=== PATIENT | female | born 1965 | race Two or more races ===

== ENCOUNTER 2020-09-06 13:01 | Outpatient (REF) | payer MEDICAID, SELFPAY ==
--- NOTE | ~2020-09-06 | CT_ITS ---
EXAMINATION: CT ABDOMEN AND PELVIS WITHOUT CONTRAST CLINICAL INFORMATION: Ulcer colitis. Diarrhea. Question mass or abscess. History of gastric bypass. COMPARISON: Previous upper GI september 2016, pelvic ultrasound and abdominal ultrasound May 2016 TECHNIQUE: Multidetector volumetric imaging was performed from the superior aspect of the liver through the pubic symphysis following oral contrast only. IV contrast was not administered due to patient's history of severe anaphylactic reaction to shellfish.. Sagittal and coronal reformatted images were obtained on the technologist's workstation. This CT examination was performed using dose optimization techniques as appropriate, variously including the following: *Automated exposure control *Adjustment of mA and/or kV according to patient size (this includes techniques or standardized protocols for targeted exams where dose is matched to indication/reason for exam; i.e. extremities or head) *Use of iterative reconstruction technique DLP: 634 mGy-cm FINDINGS: LUNG BASES: The visualized lung bases are unremarkable. LIVER, GALLBLADDER, AND BILIARY TREE: The liver is normal in size, shape, and attenuation. No focal hepatic lesion or biliary ductal dilatation is present. The gallbladder is unremarkable with no evidence of radiopaque gallstones, gallbladder wall thickening, or obvious pericholecystic inflammatory changes. PANCREAS: Unremarkable. SPLEEN: Unremarkable. ADRENAL GLANDS: Unremarkable. KIDNEYS AND URETERS: The kidneys are normal in size, shape, and attenuation. No hydronephrosis, hydroureter, or calculi seen. No perinephric stranding. BLADDER: Not optimally distended GASTROINTESTINAL TRACT: There is wall thickening of the cecum and right colon. This likely represents known ulcerative colitis. There is stool in the distal colon. There are postsurgical changes to the stomach following gastric bypass. There may be a small esophageal hernia. The small and large bowel is otherwise unremarkable. There is no evidence of obstruction, mass or abscess. The appendix is is not identified. There are small mesenteric lymph nodes in the right lower quadrant. No enlarged lymph nodes are seen. ABDOMINAL WALL: Small umbilical hernia containing fat. LYMPH NODES: Normal. VASCULAR: There are small mesenteric lymph nodes in the right lower quadrant. No enlarged lymph nodes are seen. PELVIC VISCERA: Unremarkable. OSSEOUS STRUCTURES: There are mild degenerative changes of the spine. CT/CT abdomen pelvis wo con IMPRESSION: Wall thickening of the cecum and right colon suggestive of mild colitis. No evidence of obstruction mass or abscess. Postoperative changes following gastric bypass. Probable small esophageal hernia. Small right lower quadrant mesentery lymph nodes. No enlarged lymph nodes seen. Stool in the distal colon questionable for constipation..
[2020-09-06] MEDS: Barium Sulfate Oral (Vanilla) 450 ML ORAL.SUSP 900 ML PO (16:12)
== END 2020-09-06 13:02 | disposition home or self-care (01) ==
LOC: HO.CT 13:01
PROVIDERS: PCP Internal Medicine; Visit Provider Emergency Medicine
DX: K52.9 Noninfective gastroenteritis and colitis, unspecified (principal); Z98.84 Bariatric surgery status
CPT/HCPCS: 74176

== ENCOUNTER 2020-11-15 08:13 | Outpatient (REF) | payer MEDICAID, SELFPAY ==
--- NOTE | ~2020-11-15 | MM_ITS ---
EXAMINATION: MM SCREENING DIGITAL BREAST TOMOSYNTHESIS, BILATERAL CLINICAL INFORMATION: Screening. Asymptomatic. The lifetime risk of breast cancer based on the Tyrer-Cuzick Model is 13%. COMPARISON: Mammography: 11/03/2019, 05/15/2018, 03/18/2017 TECHNIQUE: Digital breast tomosynthesis is performed in both the craniocaudal and mediolateral oblique views along with computer-aided detection (CAD). Synthesized 2D images are generated from the tomosynthesis. FINDINGS: There are scattered areas of fibroglandular density (ACR BI-RADS breast composition Category b). Breast tissue composition borders on predominantly fatty. Background stromal densities are stable. There is no developing density or architectural abnormality or interval mass. No abnormal calcifications. The axilla are unremarkable. No significant changes from prior studies. MM/MM tomosynthesis screening BI IMPRESSION: No mammographic evidence of malignancy. ASSESSMENT: BI-RADS 1: Negative RECOMMENDATION: Routine annual mammography screening. This patient's information was entered into a reminder system with a target due date for their next mammogram.
== END 2020-11-15 08:14 | disposition home or self-care (01) ==
LOC: HO.MAMMO 08:13
PROVIDERS: Visit Provider Internal Medicine
DX: Z12.31 Encounter for screening mammogram for malignant neoplasm of breast (principal)
CPT/HCPCS: 77063; 77067

== ENCOUNTER 2021-01-18 08:58 | Outpatient (REF) | payer MEDICAID, SELFPAY ==
--- NOTE | ~2021-01-18 | XR_ITS ---
EXAMINATION: XR CERVICAL SPINE CLINICAL INFORMATION: Cervicalgia COMPARISON: Radiographs of cervical spine from 09/15/2017 TECHNIQUE: 5 views of the cervical spine were obtained. FINDINGS: The craniocervical junction is normal. The dens and atlantodental articulation are intact. The cervical vertebra have normal height. No fracture or prevertebral soft tissue swelling. Facet arthropathy of the cervical spine is predominantly noted on the left at C2-C3 and C5-C6. There is chronic lack of lordotic curvature of the degenerated spine. At C4-C5, there is chronic moderate degenerative loss of disc space, vertebral osteophyte formation and minimal anterolisthesis of C4 on C5. At C5-C6, there is chronic, mild anterior disc space narrowing and facet arthropathy with chronic, 0.2 cm anterolisthesis of C5 on C6. No osseous stenosis of the neural foramina. The visualized lung apices are normal. XR/XR cervical spine 4V IMPRESSION: * No new findings in the degenerated cervical spine compared to 09/15/2017. * Disc degenerative change in the cervical spine is worst at C4-C5. * Chronic, minimal anterolisthesis at C4-C5 and 0.2 cm of anterolisthesis at C5-C6.
--- NOTE | ~2021-01-18 | XR_ITS ---
EXAMINATION: XR KNEE, RIGHT CLINICAL INFORMATION: Right knee pain COMPARISON: None TECHNIQUE: Four views of the right knee. FINDINGS: No acute findings. No fracture or subluxation. No knee joint effusion. The medial and lateral tibiofemoral joint spaces are maintained. On the sunrise view, there appears to be narrowing of the medial patellofemoral joint space. It is difficult to determine whether this represents true joint space narrowing or is secondary to slight hyperflexion of the knee on this particular radiographic projection. Very small osteophytes are noted at the patellofemoral compartment. No intra-articular osteochondral body. XR/XR knee RT 4V IMPRESSION: * No fracture or malalignment at the right knee. * Mild patellofemoral osteoarthrosis and probable narrowing of medial patellofemoral joint space.
== END 2021-01-18 08:59 | disposition home or self-care (01) ==
LOC: HO.XRAY 08:58
PROVIDERS: Absent Provider Internal Medicine; PCP Internal Medicine; Visit Provider Family Medicine
DX: M54.2 Cervicalgia (principal); M25.561 Pain in right knee
CPT/HCPCS: 72050; 73564

== ENCOUNTER 2021-03-14 07:16 | Emergency (ER) | payer MEDICAID, SELFPAY ==
--- NOTE | ~2021-03-14 | CT_ITS ---
EXAMINATION: CT ABDOMEN AND PELVIS WITH CONTRAST CLINICAL INFORMATION: Epigastric pain and diarrhea. History of ulcerative colitis and gastric bypass surgery. COMPARISON: 09/06/2020 TECHNIQUE: Multidetector volumetric images were obtained from the superior aspect of the liver through the pubic symphysis following administration 85 mL of Omnipaque 350 intravenous contrast. Sagittal and coronal reformatted images were obtained on the technologist's workstation. Oral contrast: No This CT examination was performed using dose optimization techniques as appropriate, variously including the following: *Automated exposure control *Adjustment of mA and/or kV according to patient size (this includes techniques or standardized protocols for targeted exams where dose is matched to indication/reason for exam; i.e. extremities or head) *Use of iterative reconstruction technique DLP: 773 mGy-cm FINDINGS: LUNG BASES: No pulmonary consolidation or pleural effusion at either lung base. LIVER: The liver has normal size, shape, and attenuation. No evidence of liver mass. GALLBLADDER AND BILIARY TREE: Gallbladder is without radiopaque stones, wall thickening or pericholecystic fluid. No dilated bile ducts. PANCREAS: Normal. No edema, pancreatic ductal dilatation or mass. SPLEEN: Normal. ADRENAL GLANDS: Normal. KIDNEYS AND URETERS: The kidneys have normal size and cortical thickness. No perinephric fluid collection. No urolithiasis or hydroureteronephrosis. BLADDER: Normal. No calculi or wall thickening. BOWEL AND PERITONEUM: No acute findings along the gastrointestinal tract. Small hiatal hernia. The configuration of the stomach is suggestive of remote gastric sleeve. No dilated bowel loops. The appendix is normal. No acute bowel wall thickening/edema, mesenteric fat stranding or free fluid. ABDOMINAL WALL: No acute abnormality. VASCULATURE: Atherosclerotic calcification of the abdominal aorta without aneurysm. Inferior vena cava is unremarkable. LYMPH NODES: No retroperitoneal lymphadenopathy. No pathologic sized iliac or inguinal lymph nodes. There are several lymph nodes in the right mesentery that are chronically, mildly enlarged (largest 0.8 cm short axis dimension). PELVIC VISCERA: The uterus and adnexa are unremarkable. No pelvic free fluid. SKELETAL: Mild spondylosis of the thoracolumbar spine. No suspicious bone lesions. CT/CT abdomen pelvis w con IMPRESSION: No acute imaging findings in the abdomen or pelvis compared to 09/06/2020. No evidence of inflammatory change or obstruction along the gastrointestinal tract. Hiatal hernia is noted. Chronic, mild lymphadenopathy of the mesentery is observed in this patient with history of ulcerative colitis. However, no imaging evidence of active inflammation of bowel.
[2021-03-14 07:23] VITALS: BP 163/55; PULSE 61; RESP 16; TEMP 36.6; O2SAT 98; BMI 34.9
[2021-03-14] MEDS: 0.9 % Sodium Chloride 1,000 ML 999 ML IV (07:53)
[2021-03-14 07:57] LABS: MANUAL DIFF FLAG NO
[2021-03-14 07:59] LABS: Appearance Urine CLEAR; Basophils Percent Auto 0.4 % (0-2); Color Urine YELLOW; Eosinophils Percent Auto 0.9 % (0-4); Glucose Urine UA NEG (NEG); Hematocrit 38.7 % (37.0-47.0); Hemoglobin 12.7 g/dl (12.0-16.0); Imm Gran Abs Auto 0.02 X10*3/uL (0.00-0.03); Imm Gran Pct Auto 0.4 % (0.0-0.4); Leukocyte Esterase Urine NEG (NEG); Lymphocytes Absolute Auto 1.2 X10*3/uL (1.2-4.9); Lymphocytes Percent Auto 25.5 % (20-40); Mean Corpuscular HGB Conc 32.8 g/dl (31.0-35.0); Mean Corpuscular Volume 88.4 fL (80.0-98.0); Mean Platelet Volume 8.9 fL (9.4-12.3); Monocytes Absolute Auto 0.8 X10*3/uL (0.1-1.2); Monocytes Percent Auto 16.2 % (2-11); Neutrophils Absolute Auto 2.6 x10*3/uL (2.0-8.3); Neutrophils Percent Auto 56.6 % (45-73); Nitrite Urine NEG (NEG); Platelet Count 227 X10*3/uL (160-400); Red Blood Count 4.38 X10*6/uL (4.20-5.50); Red Cell Distribution Width 13.4 % (11.0-16.0); Specific Gravity - Urine 1.025 (1.005-1.025); Urine Blood NEG (NEG); Urine Ketones NEG (NEG); Urine Protein NEG (NEG-TRACE); White Blood Count 4.6 X10*3/uL (4.8-10.8)
[2021-03-14 08:18] LABS: Alanine Aminotransferase 24 U/L (0-31); Alkaline Phosphatase 88 U/L (39-117); Anion Gap 10 (12-20); Aspartate Amino Transferase 20 U/L (5-31); Bilirubin Direct < 0.2 mg/dL (0.0-0.5); Bilirubin Total 0.4 mg/dL (0.0-1.0); Blood Urea Nitrogen 16 mg/dL (9-16); COVID-19 Test Negative (Negative); Calcium 9.3 mg/dL (8.4-10.2); Carbon Dioxide 27 mmol/L (22-29); Chloride 108 mmol/L (96-108); Creatinine Clr Calc Pharmacy 81.3; Estimated Glomerular Filt Rate > 60; Glucose Random 100 mg/dL (60-115); Lipase 23 U/L (8-78); Potassium 3.9 mmol/L (3.3-5.1); Sodium 141 mmol/L (135-145); Total Protein 7.2 g/dL (6.5-8.0)
[2021-03-14] MEDS: ondansetron HCL 4 MG/2 ML VIAL IVPUSH (08:34)
[2021-03-14] MEDS: Ketorolac Tromethamine 15 MG/ML VIAL 30 MG IVPUSH (08:34)
[2021-03-14] MEDS: iohexoL 350 MG/ML 100 ML INFUS..BTL IV (09:13)
--- NOTE | 2021-03-14 10:54 | ED_ITS ---
HPI - Abdominal Pain General Chief Complaint: Abdominal Pain Stated Complaint: abd pain, diarrhea Time Seen by Provider: 03/14/21 08:16 Source: patient Mode of arrival: ambulatory Limitations: no limitations History of Present Illness HPI narrative: 55-year-old female who presents emergency department for evaluation of nausea, vomiting, diarrhea headache and abdominal pain. The patient states she has a history of ulcerative colitis but is not had treatment in over 5 years. She complains of diarrhea x2 weeks. She states that she has 4 loose watery stools per day. She also complains of epigastric pain. She states she has an intermittent, sharp pain and she points to her epigastric area. This pain is made worse with food. She states the pain waxes and wanes in intensity is 8/10 at its worse and is 5/10 at the time of presentation. She has had nausea with occasional vomiting. She complains of feeling lightheaded, dizzy and weak. She denied fever or chills. She denied chest pain, cough for shortn ess of breath. The patient has not been on antibiotics recently and she has not had any recent travel. Related Data Previous Rx's Medication Instructions Recorded ondansetron 4 mg disintegrating 4 mg PO Q6-8H PRN #14 tab 03/14/21 tablet Allergies Allergy/AdvReac Type Severity Reaction Status Date / Time shellfish derived Allergy Unknown RASH, Unverified 01/20/20 19:09 [SHELLFISH DERIVED] THROAT ITCHINESS pt states no medication Allergy Unknown Uncoded 02/22/19 00:00 allerg Seafood Allergy Unknown Uncoded 02/22/19 00:00 Review of Systems Review of Systems Yes all other systems are reviewed and are negative Physical Exam Vital Signs: Vital Signs: Last Vital Signs Temp 97.8 F 03/14/21 07:23 Pulse 61 03/14/21 07:23 Resp 16 03/14/21 07:23 BP 163/55 H 03/14/21 07:23 Pulse Ox 98 03/14/21 07:23 Body Mass Index 34.9 Const: General: cooperative and no acute distress Orientation/consciousness: oriented to person and oriented to place Limitations: no limitations HENMT: Head: Yes normal to inspection, Yes normocephalic and Yes atraumatic Ears: external ears normal General nose exam: Normal external nose present Face and sinus: Yes normal facial exam Mouth: Normal oral and palatal mucosa present Throat: Yes posterior oropharynx normal Eyes: General: appearance normal, both eyes and all related structures Pupils: Equal, round and reactive pupils present Neck: Neck: Yes normal visual inspection, Yes no lymphadenopathy, Yes trachea midline and Yes supple Chest: Chest palpation & inspection: normal inspection of the chest and normal palpation of entire chest wall Resp: Effort & Inspection: normal respiratory effort and able to speak in complete sentences Auscultation: clear to auscultation bilaterally Cardio: Rate: regular rate Rhythm: regular rhythm Heart sounds: S1 normal heart sound present, S2 normal heart sound present and no murmurs GI: Inspection: Yes normal to inspection Palpation (GI): Soft to palpation, Tenderness to palpation present (GI) in the epigastrum (Moderate) and no guardin g Auscultation: normal bowel sounds : General: Yes no CVA tenderness Back/Spine/Pelvis: Back: no CVA tenderness Skin: General skin exam: no rashes or lesions noted Neuro: General: oriented to person and oriented to place Cranial nerves: Yes CN's II-XII intact bilaterally and Yes Equal, round and reactive pupils present Cognition (Neuro): normal cognition Motor exam (neuro): 5/5 motor strength present throughout Extrem: General: Yes normal to inspection Psych: Appearance: grossly normal Speech and movement: Normal speech and movement present Affect: normal affect Attitude: cooperative Thought process: Normal thought process present Thought content: Normal thought content present Course Course Course Narrative: 55-year-old female with history of also colitis, not on any medications for 5 years, gastric bypass surgery 2 years prior presents emergency department for evaluation of diarrhea 4 episodes per day x2 weeks and epigastric pain. Patient also had nausea and occasional vomiting. Vital signs revealed an elevated blood pressure of 163/55 otherwise were unremarkable. Physical examination revealed midepigastric tenderness. I ordered a CBC, CMP, lipase, urinalysis, C diff, stool culture and a CT scan of the abdomen pelvis with IV contrast. Patient's pain was treated with Toradol 30 mg IV and Zofran 4 mg IV. I also ordered normal saline x1 L. 1059: The patient is pain-free and feels significantly better after the above treatment. Her laboratory evaluation revealed a a WBC count of [address] scan of the abdomen pelvis revealed no acute findings to explain the patient's pain. There was no evidence of inflammatory changes or obstruction along the GI tract. She did have chronic mild lymphadenopathy of the mesentery but there was no evidence for active inflammatory bowel disease. The patient was not able to produce a stool here in the emergency department. The patient was advised to take Tylenol and ibuprofen for pain. She is also advised to take Imodium for her diarrhea. She was given verbal and printed instructions and discharged home. MDM - Abdominal Pain Lab Data Result diagrams: 03/14/21 07:52 03/14/21 07:52 Labs: Lab Results 03/14/21 03/14/21 03/14/21 Range/Units 07:52 07:52 07:52 WBC 4.6 L (4.8-10.8) X10*3/uL RBC 4.38 (4.20-5.50) X10*6/uL Hgb 12.7 (12.0-16.0) g/dl Hct 38.7 (37.0-47.0) % MCV 88.4 (80.0-98.0) fL MCH 29.0 (27.0-33.0) pg MCHC 32.8 (31.0-35.0) g/dl RDW 13.4 (11.0-16.0) % Plt Count 227 (160-400) X10*3/uL MPV 8.9 L (9.4-12.3) fL Immature Gran % (Auto) 0.4 (0.0-0.4) % Neut % (Auto) 56.6 (45-73) % Lymph % (Auto) 25.5 (20-40) % [place] % (Auto) 16.2 H (2-11) % Eos % (Auto) 0.9 (0-4) % Baso % (Auto) 0.4 (0-2) % Lymph # (Auto) 1.2 (1.2-4.9) X10*3/uL [place] # (Auto) 0.8 (0.1-1.2) X10*3/uL Eos # (Auto) 0.0 (0.0-0.4) X10*3/uL Baso # (Auto) 0.0 (0.0-0.2) X10*3/uL Abs Immat Gran (auto) 0.02 (0.00-0.03) X10*3/uL Absolute Neuts (auto) 2.6 (2.0-8.3) x10*3/uL Absolute Nucleated RBC 0.000 (0.0-0.012) X10*3/uL Nucleated RBC % (auto) 0.0 (0.0-0.2) /100WBC Sodium 141 (135-145) mmol/L Potassium 3.9 (3.3-5.1) mmol/L Chloride 108 (96-108) mmol/L Carbon Dioxide 27 (22-29) mmol/L Anion Gap 10 L (12-20) BUN 16 (9-16) mg/dL Creatinine 0.78 (0.5-1.4) mg/dL Estim Creat Clear Calc 81.3 Estimated GFR > 60 Random Glucose 100 (60-115) mg/dL Calcium 9.3 (8.4-10.2) mg/dL Total Bilirubin 0.4 (0.0-1.0) mg/dL Direct Bilirubin < 0.2 (0.0-0.5) mg/dL AST 20 (5-31) U/L ALT 24 (0-31) U/L Alkaline Phosphatase 88 (39-117) U/L Total Protein 7.2 (6.5-8.0) g/dL Albumin 4.0 (3.5-5.0) g/dL Lipase 23 (8-78) U/L Urine Color Urine Appearance Urine pH (5.0-8.0) Ur Specific [place] (1.005-1.025) Urine Protein (NEG-TRACE) MG/DL Urine Glucose (UA) (NEG) MG/DL Urine Ketones (NEG) MG/DL Urine Blood (NEG) Urine Nitrite (NEG) Ur Leukocyte Esterase (NEG) COVID-19 (PATRICE) Negative (Negative) COVID-19 Clin Com See Note 03/14/21 Range/Units 07:52 WBC (4.8-10.8) X10*3/uL RBC (4.20-5.50) X10*6/uL Hgb (12.0-16.0) g/dl Hct (37.0-47.0) % MCV (80.0-98.0) fL MCH (27.0-33.0) pg MCHC (31.0-35.0) g/dl RDW (11.0-16.0) % Plt Count (160-400) X10*3/uL MPV (9.4-12.3) fL Immature Gran % (Auto) (0.0-0.4) % Neut % (Auto) (45-73) % Lymph % (Auto) (20-40) % [place] % (Auto) (2-11) % Eos % (Auto) (0-4) % Baso % (Auto) (0-2) % Lymph # (Auto) (1.2-4.9) X10*3/uL [place] # (Auto) (0.1-1.2) X10*3/uL Eos # (Auto) (0.0-0.4) X10*3/uL Baso # (Auto) (0.0-0.2) X10*3/uL Abs Immat Gran (auto) (0.00-0.03) X10*3/uL Absolute Neuts (auto) (2.0-8.3) x10*3/uL Absolute Nucleated RBC (0.0-0.012) X10*3/uL Nucleated RBC % (auto) (0.0-0.2) /100WBC Sodium (135-145) mmol/L Potassium (3.3-5.1) mmol/L Chloride (96-108) mmol/L Carbon Dioxide (22-29) mmol/L Anion Gap (12-20) BUN (9-16) mg/dL Creatinine (0.5-1.4) mg/dL Estim Creat Clear Calc Estimated GFR Random Glucose (60-115) mg/dL Calcium (8.4-10.2) mg/dL Total Bilirubin (0.0-1.0) mg/dL Direct Bilirubin (0.0-0.5) mg/dL AST (5-31) U/L ALT (0-31) U/L Alkaline Phosphatase (39-117) U/L Total Protein (6.5-8.0) g/dL Albumin (3.5-5.0) g/dL Lipase (8-78) U/L Urine Color YELLOW Urine Appearance CLEAR Urine pH 6.0 (5.0-8.0) Ur Specific [place] 1.025 (1.005-1.025) Urine Protein NEG (NEG-TRACE) MG/DL Urine Glucose (UA) NEG (NEG) MG/DL Urine Ketones NEG (NEG) MG/DL Urine Blood NEG (NEG) Urine Nitrite NEG (NEG) Ur Leukocyte Esterase NEG (NEG) COVID-19 (PATRICE) (Negative) COVID-19 Clin Com Discharge Plan Discharge Clinical Impression: Nausea Abdominal pain Qualifiers: Abdominal location: epigastric Qualified Code(s): R10.13 - Epigastric pain Diarrhea Qualifiers: Diarrhea type: unspecified type Qualified Code(s): R19.7 - Diarrhea, unspecified Patient Disposition: Home, Self-Care Instructions: Acute Diarrhea (ED), Abdominal Pain (ED) Additional Instructions: Your blood work was unremarkable. Your COVID-[address] test was negative[address] The CT scan of your abdomen pelvis with IV contrast did not reveal a clear cause for your pain and diarrhea. There is no inflammation in your colon which is reassuring suggesting that your symptoms are not caused by a recurrence of her ulcerative colitis. Take ibuprofen 200 mg pills, 3 pills every 6 hours as needed for pain. Take Tylenol (acetaminophen) 500 mg pills, 2 pills every 4 to 6 hours as needed for pain. Take Zofran ODT 4 mg pills, 1 pill dissolved in your mouth every 8 hours as needed for nausea and vomiting. Follow-up with your doctor in 2 days. Please return to the emergency department if your symptoms get worse or if you develop any symptoms that are concerning to you. Please see work note Prescriptions: New ondansetron 4 mg tablet,disintegrating 4 mg PO Q6-8H PRN (Reason: nausea and vomiting) Qty: 14 RF: 0 Stand Alone Forms: Work/School Release [facility] Past Medical History [facility] Narrative: Past medical history: Ulcerative colitis, depression. Past surgical history: Patient had a gastric bypass surgery 3 years prior. She denies tobacco, alcohol and drug use. Social History Social History Advance Directives: No Patient : No
== END 2021-03-14 11:30 | disposition home or self-care (01) ==
PROVIDERS: Emergency Provider Emergency Medicine Emergency Medical Services; PCP Internal Medicine
DX: R10.13 Epigastric pain (principal); R19.7 Diarrhea, unspecified; R11.0 Nausea; Z98.84 Bariatric surgery status; Z20.822 Contact with and (suspected) exposure to COVID-19
CPT/HCPCS: 36415; 74177; 80048; 80076; 81003; 83690; 85025; 87635; 96361; 96374; 96375; 99283; 99284; J1885; J2405; Q9967

== ENCOUNTER 2021-04-03 14:03 | Emergency (ER) | payer MEDICAID, SELFPAY ==
[2021-04-03 15:03] VITALS: BP 132/70; PULSE 63; RESP 18; TEMP 36.5; O2SAT 98; BMI 32.5
[2021-04-03 15:48] LABS: OBS Int Ctl Valid YES; OBS1 POSITIVE (NEGATIVE)
[2021-04-03 16:43] LABS: MANUAL DIFF FLAG NO
[2021-04-03 16:44] LABS: Leukocytes Stool Qualitative NEGATIVE (NEGATIVE)
[2021-04-03 16:46] LABS: Basophils Percent Auto 0.4 % (0-2); Eosinophils Absolute Auto 0.1 X10*3/uL (0.0-0.4); Eosinophils Percent Auto 2.7 % (0-4); Hematocrit 38.7 % (37.0-47.0); Hemoglobin 12.8 g/dl (12.0-16.0); Imm Gran Abs Auto 0.04 X10*3/uL (0.00-0.03); Imm Gran Pct Auto 0.8 % (0.0-0.4); Lymphocytes Absolute Auto 1.2 X10*3/uL (1.2-4.9); Lymphocytes Percent Auto 23.6 % (20-40); Mean Corpuscular HGB Conc 33.1 g/dl (31.0-35.0); Mean Corpuscular Hemoglobin 29.8 pg (27.0-33.0); Mean Corpuscular Volume 90.2 fL (80.0-98.0); Mean Platelet Volume 8.8 fL (9.4-12.3); Monocytes Absolute Auto 0.8 X10*3/uL (0.1-1.2); Monocytes Percent Auto 14.9 % (2-11); Neutrophils Percent Auto 57.6 % (45-73); Platelet Count 255 X10*3/uL (160-400); Red Blood Count 4.29 X10*6/uL (4.20-5.50); Red Cell Distribution Width 13.3 % (11.0-16.0); White Blood Count 5.2 X10*3/uL (4.8-10.8)
[2021-04-03 17:05] LABS: Alanine Aminotransferase 21 U/L (0-31); Alkaline Phosphatase 95 U/L (39-117); Anion Gap 11 (12-20); Aspartate Amino Transferase 23 U/L (5-31); Bilirubin Direct < 0.2 mg/dL (0.0-0.5); Bilirubin Total 0.3 mg/dL (0.0-1.0); Blood Urea Nitrogen 22 mg/dL (9-16); Calcium 9.5 mg/dL (8.4-10.2); Carbon Dioxide 27 mmol/L (22-29); Chloride 107 mmol/L (96-108); Creatinine Clr Calc Pharmacy 80.4; Estimated Glomerular Filt Rate > 60; Glucose Random 85 mg/dL (60-115); Lipase 38 U/L (8-78); Potassium 3.5 mmol/L (3.3-5.1); Sodium 141 mmol/L (135-145); Total Protein 7.3 g/dL (6.5-8.0)
--- NOTE | 2021-04-03 17:55 | ED.NAVMDI ---
HPI - Nausea/Vomiting/Diarrhea General Chief complaint: Nausea/Vomiting/Diarrhea Stated complaint: diarrhea Time Seen by Provider: 04/03/21 17:29 Source: patient Mode of arrival: ambulatory Limitations: no limitations History of Present Illness HPI Narrative: Patient comes to emergency room complaining of chronic diarrhea for a month. Patient states that she has history of ulcerative colitis, last time that she had a colonoscopy was over 5 years ago. Patient states that she was seen here on March 14 for the same reason. Patient accepts that she did not citrus picker the medication for diarrhea. Denies abdominal pain, no rectal bleeding, no nausea or vomiting. No fever. 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 interventionist Related Data Previous Rx's Medication Instructions Recorded ondansetron 4 mg disintegrating 4 mg PO Q6-8H PRN #14 tab 03/14/21 tablet diphenoxylate-atropine 2.5 1 tab PO DAILY PRN #10 tab 04/03/21 mg-0.025 mg tablet (Lomotil) Allergies Allergy/AdvReac Type Severity Reaction Status Date / Time shellfish derived Allergy Unknown RASH, Verified 04/03/21 15:02 [SHELLFISH DERIVED] THROAT ITCHINESS Seafood Allergy Unknown Unknown Uncoded 04/03/21 15:02 Review of Systems Review of Systems: Constitutional : No Weight loss, No Fever, No Chills, No Night Sweats, No Fatigue, No Malaise ENT/Mouth : No Hearing loss, No Ear Pain, No Nasal Congestion, No Sinus Pain, No Hoarseness, No sore throat, No Rhinorrhea, No Swallowing Difficulty Eyes: No Eye Pain, No Swelling, No Redness, No Foreign Body, No Discharge, No Vision Changes Cardiovascular : No Chest Pain, No SOB, No Dyspnea on Exertion, No Orthopnea, No Edema, No Palpitations Respiratory : No Cough, No Sputum, No Wheezing, No Smoke Exposure, No Dyspnea Gastrointestinal : No Nausea, No Vomiting, chronic daily Diarrhea for over a month, No Constipation, No abdominal Pain, No Hematochezia, No Melena Genitourinary : no irregular bleeding, No Dysuria, No Urinary Frequency, No Hematuria, No Urinary Incontinence, No Urgency, No Flank Pain, No Urinary Flow Changes, No Hesitancy Musculoskeletal : No joint pain, No Myalgias, No Joint Swelling Skin : No Skin Lesions, No rash Neuro : No Weakness, No Numbness, No Paresthesias, No Loss of Consciousness, No Dizziness, No Headache Psych : No Anxiety/Panic, No Depression, No SI/HI/AH/VH, No Social Issues, Heme/Lymph: No Bruising, No Bleeding,No Lymphadenopathy Endocrine : No Polyuria, No Polydipsia, No Temperature Intolerance [facility] Social History Social History Alcohol intake: unknown Patient Tobacco Use Status: Never used Tobacco Use of substances other than those prescribed or required for medical reasons: No Advance Directives: No Advance Directives Information Provided: No Patient : No Physical Exam Vital Signs: Vital Signs: Last Vital Signs Temp 97.7 F 04/03/21 15:03 Pulse 63 04/03/21 15:03 Resp 18 04/03/21 15:03 BP 132/70 04/03/21 15:03 Pulse Ox 98 04/03/21 15:03 Body Mass Index 32.5 Const: Other: Appearance: Alert. Oriented X3. No acute distress. Eyes: Pupils equal, round and reactive to light. ENT: Pharynx normal. Neck: Normal inspection. Neck supple. No lymph nodes noted. No crepitus CVS: Normal heart rate and rhythm. Pulses normal. Normal S1 and S2 Respiratory: No respiratory distress. Breath sounds normal. No Wheezing. No rales Abdomen: Soft and nontender. No rigidity. No distention. good BS x4 Skin: Skin warm and dry. Normal skin color. Normal skin turgor. Extremities: No lower extremity edema. No Lacerations. No Rash Neuro: Oriented X 3. No motor deficit. No sensory deficit. Moving all extermities. No slurred speech. Course Course Course Narrative: Patient's white blood cell count is normal, also no significant electrolyte abnormalities, LFTs within normal limits. Patient did have occult blood in the stool. H&H is normal. Patient is concerned that she has diarrhea and she is about to travel to [place]. Patient states that she did not citrus picker her previous medication. Patient will citrus picker her medications tomorrow. Patient's pharmacy is closed now, declined having me sent her prescriptions to a 24 hour pharmacy MDM - Nausea/Vomiting/Diarrhea Lab Data Result diagrams: 04/03/21 16:38 04/03/21 16:38 Labs: Lab Results 04/03/21 04/03/21 04/03/21 Range/Units 15:34 15:34 16:38 WBC 5.2 (4.8-10.8) X10*3/uL RBC 4.29 (4.20-5.50) X10*6/uL Hgb 12.8 (12.0-16.0) g/dl Hct 38.7 (37.0-47.0) % MCV 90.2 (80.0-98.0) fL MCH 29.8 (27.0-33.0) pg MCHC 33.1 (31.0-35.0) g/dl RDW 13.3 (11.0-16.0) % Plt Count 255 (160-400) X10*3/uL MPV 8.8 L (9.4-12.3) fL Immature Gran % (Auto) 0.8 H (0.0-0.4) % Neut % (Auto) 57.6 (45-73) % Lymph % (Auto) 23.6 (20-40) % [place] % (Auto) 14.9 H (2-11) % Eos % (Auto) 2.7 (0-4) % Baso % (Auto) 0.4 (0-2) % Lymph # (Auto) 1.2 (1.2-4.9) X10*3/uL [place] # (Auto) 0.8 (0.1-1.2) X10*3/uL Eos # (Auto) 0.1 (0.0-0.4) X10*3/uL Baso # (Auto) 0.0 (0.0-0.2) X10*3/uL Abs Immat Gran (auto) 0.04 H (0.00-0.03) X10*3/uL Absolute Neuts (auto) 3.0 (2.0-8.3) x10*3/uL Absolute Nucleated RBC 0.000 (0.0-0.012) X10*3/uL Nucleated RBC % (auto) 0.0 (0.0-0.2) /100WBC Sodium (135-145) mmol/L Potassium (3.3-5.1) mmol/L Chloride (96-108) mmol/L Carbon Dioxide (22-29) mmol/L Anion Gap (12-20) BUN (9-16) mg/dL Creatinine (0.5-1.4) mg/dL Estim Creat Clear Calc Estimated GFR Random Glucose (60-115) mg/dL Calcium (8.4-10.2) mg/dL Total Bilirubin (0.0-1.0) mg/dL Direct Bilirubin (0.0-0.5) mg/dL AST (5-31) U/L ALT (0-31) U/L Alkaline Phosphatase (39-117) U/L Total Protein (6.5-8.0) g/dL Albumin (3.5-5.0) g/dL Lipase (8-78) U/L Stool Occult Blood POSITIVE (NEGATIVE) Stool Leukocytes, Qual NEGATIVE (NEGATIVE) 04/03/21 Range/Units 16:38 WBC (4.8-10.8) X10*3/uL RBC (4.20-5.50) X10*6/uL Hgb (12.0-16.0) g/dl Hct (37.0-47.0) % MCV (80.0-98.0) fL MCH (27.0-33.0) pg MCHC (31.0-35.0) g/dl RDW (11.0-16.0) % Plt Count (160-400) X10*3/uL MPV (9.4-12.3) fL Immature Gran % (Auto) (0.0-0.4) % Neut % (Auto) (45-73) % Lymph % (Auto) (20-40) % [place] % (Auto) (2-11) % Eos % (Auto) (0-4) % Baso % (Auto) (0-2) % Lymph # (Auto) (1.2-4.9) X10*3/uL [place] # (Auto) (0.1-1.2) X10*3/uL Eos # (Auto) (0.0-0.4) X10*3/uL Baso # (Auto) (0.0-0.2) X10*3/uL Abs Immat Gran (auto) (0.00-0.03) X10*3/uL Absolute Neuts (auto) (2.0-8.3) x10*3/uL Absolute Nucleated RBC (0.0-0.012) X10*3/uL Nucleated RBC % (auto) (0.0-0.2) /100WBC Sodium 141 (135-145) mmol/L Potassium 3.5 (3.3-5.1) mmol/L Chloride 107 (96-108) mmol/L Carbon Dioxide 27 (22-29) mmol/L Anion Gap 11 L (12-20) BUN 22 H (9-16) mg/dL Creatinine 0.82 (0.5-1.4) mg/dL Estim Creat Clear Calc 80.4 Estimated GFR > 60 Random Glucose 85 (60-115) mg/dL Calcium 9.5 (8.4-10.2) mg/dL Total Bilirubin 0.3 (0.0-1.0) mg/dL Direct Bilirubin < 0.2 (0.0-0.5) mg/dL AST 23 (5-31) U/L ALT 21 (0-31) U/L Alkaline Phosphatase 95 (39-117) U/L Total Protein 7.3 (6.5-8.0) g/dL Albumin 4.0 (3.5-5.0) g/dL Lipase 38 (8-78) U/L Stool Occult Blood (NEGATIVE) Stool Leukocytes, Qual (NEGATIVE) Discharge Plan Discharge Clinical Impression: Chronic diarrhea Patient Disposition: Home, Self-Care Instructions: Chronic Diarrhea (ED) Additional Instructions: Please follow-up with your primary care physician tomorrow. If you have any worsening or new symptoms, please return to the emergency room or call 911 Prescriptions: New diphenoxylate-atropine [Lomotil] 2.5-0.025 mg tablet 1 tab PO DAILY PRN (Reason: diarrhea) Qty: 10 RF: 0 No Action ondansetron 4 mg tablet,disintegrating 4 mg PO Q6-8H PRN (Reason: nausea and vomiting) Qty: 14 RF: 0 Referrals: Joao Daniel MD [Physician] - 2 days
[2021-04-03] MEDS: Loperamide HCl 2 MG CAPSULE 4 MG PO (18:05)
== END 2021-04-03 18:08 | disposition home or self-care (01) ==
LOC: HO.ED 17:59
PROVIDERS: Emergency Provider Emergency Medicine; PCP Internal Medicine
DX: K52.9 Noninfective gastroenteritis and colitis, unspecified (principal)
CPT/HCPCS: 36415; 80048; 80076; 82272; 83690; 85025; 87045; 87046; 89055; 99284

== ENCOUNTER → 2021-06-04 14:39 | Outpatient (BNVA) | payer MEDICAID, SELFPAY | PROVIDERS: PCP Internal Medicine; Referring Provider Internal Medicine; Visit Provider Internal Medicine Gastroenterology | DX: K52.9 Noninfective gastroenteritis and colitis, unspecified (principal); K75.81 Nonalcoholic steatohepatitis (NASH); G89.29 Other chronic pain; R10.33 Periumbilical pain | CPT/HCPCS: 99212 ==

== ENCOUNTER 2021-06-06 13:46 | Outpatient (REF) | payer MEDICAID, SELFPAY ==
[2021-06-06 15:13] LABS: MANUAL DIFF FLAG NO
[2021-06-06 15:26] LABS: Basophils Percent Auto 0.2 % (0-2); Eosinophils Absolute Auto 0.2 X10*3/uL (0.0-0.4); Eosinophils Percent Auto 3.6 % (0-4); Hematocrit 37.7 % (37.0-47.0); Hemoglobin 12.1 g/dl (12.0-16.0); Imm Gran Abs Auto 0.01 X10*3/uL (0.00-0.03); Imm Gran Pct Auto 0.2 % (0.0-0.4); Lymphocytes Absolute Auto 1.3 X10*3/uL (1.2-4.9); Lymphocytes Percent Auto 28.3 % (20-40); Mean Corpuscular HGB Conc 32.1 g/dl (31.0-35.0); Mean Corpuscular Hemoglobin 28.5 pg (27.0-33.0); Mean Corpuscular Volume 88.7 fL (80.0-98.0); Mean Platelet Volume 9.1 fL (9.4-12.3); Monocytes Absolute Auto 0.7 X10*3/uL (0.1-1.2); Monocytes Percent Auto 15.7 % (2-11); Neutrophils Absolute Auto 2.3 x10*3/uL (2.0-8.3); Platelet Count 267 X10*3/uL (160-400); Red Blood Count 4.25 X10*6/uL (4.20-5.50); Red Cell Distribution Width 13.3 % (11.0-16.0); White Blood Count 4.5 X10*3/uL (4.8-10.8)
[2021-06-06 15:48] LABS: Alanine Aminotransferase 16 U/L (0-31); Albumin Level 3.7 g/dL (3.5-5.0); Alkaline Phosphatase 82 U/L (39-117); Anion Gap 11 (12-20); Aspartate Amino Transferase 17 U/L (5-31); Bilirubin Total 0.3 mg/dL (0.0-1.0); Blood Urea Nitrogen 25 mg/dL (9-16); C Reactive Protein 0.35 mg/dL (< or = 0.50); Calcium 9.2 mg/dL (8.4-10.2); Carbon Dioxide 26 mmol/L (22-29); Chloride 107 mmol/L (96-108); Estimated Glomerular Filt Rate > 60; Glucose Random 79 mg/dL (60-115); Sodium 140 mmol/L (135-145); Total Protein 6.6 g/dL (6.5-8.0)
[2021-06-06 16:07] LABS: Erythrocyte Sedimentation Rate 16 MM/HR (0-20)
[2021-06-06 16:09] LABS: Ferritin 16 ng/mL (10-250); TSH reflex Free T4 1.11 uIU/mL (0.32-4.0); Vitamin D 25-OH Total 38.4 ng/mL (>30)
[2021-06-06 16:21] LABS: Folate 16.5 ng/mL (> or = 4.0); Vitamin B12 667 pg/mL (200-900)
[2021-06-07 04:30] LABS: HBS Num1 0.19 mIU/mL (0-7.99); HBc Num1 0.12 S/CO (0.00-0.79); HBsAGNum1 0.17 S/CO (0.00-0.99); Hepatitis B Core Antibody Nonreactive (Nonreactive); Hepatitis B Surface Antigen Negative (Negative); ~HepC Num1 0.23 S/CO (0.00-0.79); ~Hepatitis B Surface Antibody NONREACTIVE (Nonreactive); ~Hepatitis C Antibody Nonreactive (Nonreactive)
[2021-06-07 13:09] LABS: H Pylori Breath Test Negative (Negative)
[2021-06-08 08:23] LABS: Hepatitis A Antibody IgM 0.15 Index (0-0.79); ~Hepatitis A Antibody IgM Nonreactive (Nonreactive)
[2021-06-08 12:56] LABS: Transglutaminase Ab IgG <1.0 U/mL; Transglutaminase IgA 8.2 U/mL
[2021-06-08 17:47] LABS: IgA 378 mg/dL (47-310); IgG 1216 mg/dL (600-1640); IgM 69 mg/dL (50-300)
[2021-06-09 03:52] LABS: Zinc 65 mcg/dL (60-130)
[2021-06-09 12:47] LABS: Vitamin C 0.7 mg/dL (0.3-2.7)
[2021-06-09 17:22] LABS: Nicotinamide <20 ng/mL; Vit B3 - Nicotinic Acid <20 ng/mL
[2021-06-10 13:41] LABS: Vitamin B5 (Pantothenic Acid) 46 ng/mL (<275)
[2021-06-12 11:22] LABS: Vitamin A 42 mcg/dL (38-98)
[2021-06-12 11:32] LABS: Alpha-Tocopherol 16.2 mg/L (5.7-19.9); Beta-Gamma Tocopherol 1.3 mg/L (<=4.3)
[2021-06-12 22:45] LABS: Histamine Plasma 1.7 ng/mL (< OR = 1.8)
[2021-06-13 15:52] LABS: Vitamin B6 14.3 ng/mL (2.1-21.7)
[2021-06-16 20:07] LABS: Vitamin K1 682 pg/mL (130-1500)
== END 2021-06-06 13:47 | disposition home or self-care (01) ==
LOC: HO.LAB 13:46
PROVIDERS: PCP Internal Medicine; Referring Provider Internal Medicine; Visit Provider Internal Medicine Gastroenterology
DX: K52.9 Noninfective gastroenteritis and colitis, unspecified (principal); R19.7 Diarrhea, unspecified; G89.29 Other chronic pain; R10.33 Periumbilical pain; K52.839 Microscopic colitis, unspecified; K75.81 Nonalcoholic steatohepatitis (NASH)
CPT/HCPCS: 36415; 80053; 82180; 82306; 82607; 82728; 82746; 82784; 83013; 83088; 83520; 84207; 84443; 84446; 84590; 84591; 84597; 84630; 85025; 85652; 86003; 86140; 86364; 86704; 86706; 86709; 86803; 87340; 99211

== ENCOUNTER 2021-06-07 09:02 | Outpatient (REF) | payer MEDICAID, SELFPAY ==
[2021-06-07 10:57] LABS: CDiff Gene PCR NEGATIVE (Negative)
[2021-06-12 14:15] LABS: Fecal Fat Qualitative Normal (Normal)
[2021-06-13 17:21] LABS: Lactoferrin, Fecal, Quant. 224.8 mcg/mL
== END 2021-06-07 09:03 | disposition home or self-care (01) ==
LOC: HO.LNP 09:02
PROVIDERS: Visit Provider Internal Medicine Gastroenterology
DX: K52.9 Noninfective gastroenteritis and colitis, unspecified (principal); Z87.19 Personal history of other diseases of the digestive system
CPT/HCPCS: 82705; 83631; 87329; 87493

== ENCOUNTER 2021-06-14 13:49 | Outpatient (REF) | payer MEDICAID, SELFPAY ==
--- NOTE | ~2021-06-14 | CT_ITS ---
EXAMINATION: CT ENTEROGRAPHY ABDOMEN AND PELVIS WITH CONTRAST CLINICAL INFORMATION: Periumbilical pain COMPARISON: Previous CT of the abdomen and pelvis March 2021 TECHNIQUE: Study performed with oral Volumen (1350 mL) and 480 mL of water to distend the abdomen. The patient was injected with 85 mL Omnipaque 350 intravenous contrast which was administered without adverse effect. Coronal and sagittal reformatted images were obtained at the technologist's workstation. This CT examination was performed using dose optimization techniques as appropriate, variously including the following: *Automated exposure control *Adjustment of mA and/or kV according to patient size (this includes techniques or standardized protocols for targeted exams where dose is matched to indication/reason for exam; i.e. extremities or head) *Use of iterative reconstruction technique DLP: 549 mGy-cm FINDINGS: GASTROINTESTINAL FINDINGS: Stomach: Well-distended. 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 There are also surgical clips in the proximal stomach questionable for antireflux surgery. There is an esophageal hernia. Small intestine: Satisfactorily distended. There is question of a short segment of mild wall thickening and enhancement of the proximal small bowel (axial image 43 series 4 and coronal reconstructed image 20 - 25). The small bowel is otherwise normal in appearance. Large intestine: Well-distended and normal in appearance. No perirectal changes demonstrated. The appendix is normal. Additional findings: No abnormal enhancement of the vasa recta or significant mesenteric or retroperitoneal lymphadenopathy is seen. No abdominal abscess or fistulous tract demonstrated. ABDOMINAL AND PELVIC CT FINDINGS: Liver, gallbladder, biliary tract: Normal Pancreas: Normal Spleen: Slightly enlarged measuring 13.6 cm in length. Adrenal glands and kidneys: Normal Ureters and bladder: Normal Lymphovascular structures: There is shotty small bowel mesentery lymphadenopathy seen in the right lower quadrant. No enlarged lymph nodes are seen. No ascites. Bones: Degenerative changes of the spine. Lung bases: Atelectasis at the right lung base. CT/CT enterography IMPRESSION: Question sort short segment wall thickening and enhancement of the proximal small bowel shotty right lower quadrant small bowel mesentery lymphadenopathy. Postsurgical changes to the stomach. Small esophageal hernia.
[2021-06-14] MEDS: iohexoL 350 MG/ML 100 ML INFUS..BTL 85 ML IV (15:58)
[2021-06-14] MEDS: Sorbitol/Mannit/Xanth Imaging 500 ML LIQUID 1500 ML PO (15:59)
== END 2021-06-14 13:50 | disposition home or self-care (01) ==
LOC: HO.CT 13:49
PROVIDERS: PCP Internal Medicine; Visit Provider Internal Medicine Gastroenterology
DX: R10.33 Periumbilical pain (principal); K52.9 Noninfective gastroenteritis and colitis, unspecified
CPT/HCPCS: 74177; Q9967

== ENCOUNTER → 2021-07-31 08:19 | Outpatient (BNVA) | payer MEDICAID, SELFPAY | PROVIDERS: PCP Internal Medicine; Referring Provider Internal Medicine; Visit Provider Internal Medicine Gastroenterology | DX: Z12.11 Encounter for screening for malignant neoplasm of colon (principal) | CPT/HCPCS: 91110 ==

== ENCOUNTER 2021-11-21 09:42 | Outpatient (REF) | payer MEDICAID, SELFPAY ==
--- NOTE | ~2021-11-21 | MM_ITS ---
EXAMINATION: MM SCREENING DIGITAL BREAST TOMOSYNTHESIS, BILATERAL CLINICAL INFORMATION: Screening. Asymptomatic. The lifetime risk of breast cancer based on the Tyrer-Cuzick Model is 5.7%. COMPARISON: Mammography: 11/15/2020 and studies dating back to 03/04/2016. TECHNIQUE: Digital breast tomosynthesis is performed in both the craniocaudal and mediolateral oblique views along with computer-aided detection (CAD). Synthesized 2-D images are generated from the tomosynthesis. FINDINGS: There are scattered areas of fibroglandular density (ACR BI-RADS breast composition Category b). There is a stable parenchymal pattern of the left breast. About the superior aspect of the right breast approximately 7 cm from nipple, there is a slight distortion compared to previous studies, and spot compression view is recommended. I do not see a correlate on craniocaudal view. MM/MM tomosynthesis screening BI IMPRESSION: Question slight distortion superior aspect of the right breast for further evaluation with spot compression view. ASSESSMENT: BI-RADS 0: Incomplete - Need Additional Imaging Evaluation RECOMMENDATION: 1. Additional views of the right breast. 2. Targeted ultrasound if warranted after review of the additional views. 3. Radiology department staff will contact the patient for additional imaging. This patient's information was entered into a reminder system with a target due date for their next mammogram.
== END 2021-11-21 09:43 | disposition home or self-care (01) ==
LOC: HO.MAMMO 09:42
PROVIDERS: Visit Provider Internal Medicine
DX: Z12.31 Encounter for screening mammogram for malignant neoplasm of breast (principal)
CPT/HCPCS: 77063; 77067

== ENCOUNTER 2021-11-26 08:05 | Outpatient (REF) | payer MEDICAID, SELFPAY ==
--- NOTE | ~2021-11-26 | MM_ITS ---
EXAMINATION: MM DIAGNOSTIC DIGITAL BREAST TOMOSYNTHESIS, RIGHT CLINICAL INFORMATION: Recall from screening for question of architectural changes upper right breast limited to MLO view. Family history breast cancer, mother. TC score 6%. COMPARISON: Mammography: 11/21/2021, 11/15/2020, 11/03/2019 TECHNIQUE: Digital breast tomosynthesis is performed. 2D images are generated from the tomosynthesis. The following views are obtained: Spot MLO x2. FINDINGS: There are scattered areas of fibroglandular density (ACR BI-RADS breast composition Category b). The additional views show no architectural abnormality. There is no developing density or mass or changes from prior studies. There are scattered shifting fibroglandular parenchymal densities from year to year related to variation in positioning. Results are discussed with the patient at time of visit. MM/MM tomosynthesis added views R IMPRESSION: Additional views show no architectural abnormality or significant changes from prior studies. ASSESSMENT: BI-RADS 1: Negative RECOMMENDATION: Routine annual mammography screening. This patient's information was entered into a reminder system with a target due date for their next mammogram.
== END 2021-11-26 08:06 | disposition home or self-care (01) ==
LOC: HO.MAMMO 08:05
PROVIDERS: Visit Provider Internal Medicine
DX: N64.89 Other specified disorders of breast (principal)
CPT/HCPCS: 77061; 77065

== ENCOUNTER 2022-01-10 09:02 | Day surgery (SDC) | payer MEDICAID, SELFPAY ==
--- NOTE | 2022-01-09 12:09 | P.CONAN_ITS ---
Documented by User: Sophie Harper NP 01/09/22 12:12 HPI - Anesthesia Eval Consult details Narrative: 56yo F for Upper Endoscopy and Colonoscopy PMFSH Active Problems Active Problems: All Active Problems (Updated 06/04/21 @ 15:31 by Germaine Ruiz MD) Colitis (Acute) Family History Family History (Updated 06/04/21 @ 14:52 by KAMILA Sanchez) Mother Diabetes Breast cancer Brother Diabetes Brother Diabetes Surgical History Surgical History (Updated 06/04/21 @ 14:52 by KAMILA Sanchez) History of esophagogastroduodenoscopy (EGD) Hx of colonoscopy Social History Social History Alcohol intake: unknown Patient Tobacco Use Status: Never used Tobacco Second Hand Smoke Exposure: No Use of substances other than those prescribed or required for medical reasons: No Are you DNR?: No Advance Directives: No Advance Directives Information Provided: Yes Advance Directives on File: No Meds Allergies Allergy/AdvReac Type Severity Reaction Status Date / Time shellfish derived Allergy Unknown RASH, Verified 06/04/21 14:50 [SHELLFISH DERIVED] THROAT ITCHINESS Seafood Allergy Unknown Unknown Uncoded 06/04/21 14:50 Home Medications Medication Instructions Recorded Confirmed Last Taken Type cholecalciferol (vitamin D3) 50 50 mcg PO DAILY 06/04/21 07/31/21 Unknown History mcg (2,000 unit) capsule fluoxetine 20 mg capsule 20 mg PO QAM 06/04/21 07/31/21 Unknown History trazodone 100 mg tablet 100 mg PO BEDTIME 06/04/21 07/31/21 Unknown History Exam Exam Date and Time: January 09, 2022 1209 Pertinent Lab Results Pertinent Lab Results: Laboratory Tests 06/06/21 06/06/21 15:10 15:10 WBC 4.5 L Hgb 12.1 Hct 37.7 Plt Count 267 Sodium 140 Potassium 4.0 Chloride 107 Carbon Dioxide 26 BUN 25 H Creatinine 0.84 Assessment and Plan Assessment Anesthesia Assessment: Chart Reviewed Documented by User: Roldan Cunningham MD 01/10/22 10:55 PMFSH Family History Family History (Updated 06/04/21 @ 14:52 by KAMILA Sanchez) Mother Diabetes Breast cancer Brother Diabetes Brother Diabetes Family history of problems with anesthesia: No Surgical History Surgical History (Updated 06/04/21 @ 14:52 by KAMILA Sanchez) History of esophagogastroduodenoscopy (EGD) Hx of colonoscopy History of Problems with Anesthesia: No Social History Social History Alcohol intake: unknown Patient Tobacco Use Status: Never used Tobacco Second Hand Smoke Exposure: No Use of substances other than those prescribed or required for medical reasons: No Are you DNR?: No Advance Directives: No Advance Directives Information Provided: Yes Advance Directives on File: No Meds Allergies Allergy/AdvReac Type Severity Reaction Status Date / Time shellfish derived Allergy Unknown RASH, Verified 06/04/21 14:50 [SHELLFISH DERIVED] THROAT ITCHINESS Seafood Allergy Unknown Unknown Uncoded 06/04/21 14:50 Home Medications Medication Instructions Recorded Confirmed Last Taken Type cholecalciferol (vitamin D3) 50 50 mcg PO DAILY 06/04/21 07/31/21 Unknown History mcg (2,000 unit) capsule fluoxetine 20 mg capsule 20 mg PO QAM 06/04/21 07/31/21 Unknown History trazodone 100 mg tablet 100 mg PO BEDTIME 06/04/21 07/31/21 Unknown History Exam Airway Mallampati Class: II TM Dist: >3cm Partial: Upper Heart: rrr Lungs: clear Assessment and Plan Final Anesthetic Review Family History of Problems with Anesthesia: No History of Problems with Anesthesia: No NPO: Yes ASA Class: II Final Preanesthetic Review: No Changes in Pt Med Stat, Meds/Allgs Chart Revi ewed, Consent Obtained/Reviewed and Anes Risks/Benef Reviewed Patient Risk: Intermediate Procedure Risk: Low Anesthetic Plan Anesthetic Plan: MAC: Disposition: Standard PACU
[2022-01-10 09:40] VITALS: BMI 32.5
[2022-01-10 09:49] VITALS: BP 120/49; PULSE 55; RESP 16; TEMP 36.1; O2SAT 99
[2022-01-10] MEDS: Lactated Ringers 1,000 ML 100 ML IVCONT (09:55)
--- NOTE | 2022-01-10 10:48 | MHC.SHP ---
Pre-Procedural Eval Section A Date of Service: 01/10/22 Section B Chief Complaint: gastroenteritis and colitis Relevant Family History (Specify if Yes): No Relevant Social History: None Present Medications: see Short Stay Collaborative assessment Medical History: Significant History (LSG, DM, HLP ) History of Previous Operations: Relevant previous surgery/procedure and date(s) (egd,colonoscopy) Allergies: Allergies Allergy/AdvReac Type Severity Reaction Status Date / Time shellfish derived Allergy Unknown RASH, Verified 06/04/21 14:50 [SHELLFISH DERIVED] THROAT ITCHINESS Seafood Allergy Unknown Unknown Uncoded 06/04/21 14:50 Review of Systems Sugical H&P ROS: Negative: Constitution, Cardiovascular, Respiratory, Neurological, Psychiatric, Hem-Onc, Allergic/Immunologic, Gastrointestinal, Genitourinary, Musculoskeletal, Integumentary, Endocrine and Eyes/Ears/Nose/Throat Exam Surgical H&P Exam: Normal: HEENT, Normal: Heart, Normal: Lungs, Normal: Extremities, Normal: Abdomen, Normal: Skin and Normal: Neurological Plan Diagnosis/Plan: Unchanged I have reviewed the history and physical and performed a pertinent physical examination on my patient. No changes have occurred unless specified.
--- NOTE | 2022-01-10 10:50 | W.PM.OPN ---
Operative Note Operative Note Date of Service: 01/10/22 Narrative: Operative Information Procedure Description: EGD, Colonoscopy Indication: gastroenteritis and colitis Anesthesia: MAC FLEXIBLE TRANSORAL UPPER GASTROINTESTINAL ENDOSCOPY AND COLONOSCOPY PROCEDURE NOTE UPPER ENDOSCOPY Consent: Indications for the procedure and potential complications of bleeding, perforation, reaction to medications and missed diagnosis were discussed with the patient and informed consent was obtained. Instrument: Olympus GIF H 190 J mid size upper endoscope Monitoring: Vital signs and clinical assessment, continuous EKG monitoring, Pulse oximetry, Carbon Dioxide monitoring and blood pressure monitoring were done throughout the procedure. Procedure: The patient was placed in the left lateral decubitis position and pre-procedure medications were administered and a bite block was placed. The endoscope was inserted into the mouth and advanced under direct vision to the third part of duodenum. A careful inspection was made as the upper endoscope was withdrawn including a retroflexed examination of the proximal stomach; Findings and interventions are described below. Findings: Larynx:normal Esophagus: GE junction at 32 cm, diaphragm hiatus at 35 cm, 3-4 cm hiatal hernia noted with lower esophagus inflammation and maceration consistent with esophagitis. Stomach: PAtchy erythematous mucosa. Biopsies were obtained. Partial fundoplication noted on retroflexed examination of the cardia. Duodenum: Normal bulb and descending duodenum, bx taken Intervention: Biopsies as noted above COLONOSCOPY Instrument: Olympus variable stiffness Adult scope 190L Colonoscopy Monitoring: Vital signs and clinical assessment, continuous EKG monitoring, Pulse oximetry, Carbon Dioxide monitoring and blood pressure monitoring were done throughout the procedure. Colon withdrawal time was 12 minutes. Procedure: The patient was placed in the left lateral decubitis position and pre-procedure medications were administered. After a digital rectal examination of the ano-rectum, the video colonoscope was inserted into the rectum and advanced through the colon to the cecum/TI. The colonoscope was slowly withdrawn in a retrograde panoramic fashion and the colon mucosa was carefully examined including a retroflexed view of the rectum. Findings and interventions are described below. Procedure Difficulty: easy Findings: Terminal Ileum-normal, bx taken Cecum:erythema, granularity and microabscesses Ascending Colon: erythema, granularity and microabscesses Transverse Colon -erythema, granularity and microabscesses Descending Colon:erythema, granularity and microabscesses Sigmoid Colon: erythema, granularity and microabscesses Rectum: Retroflexion with small internal hemorrhoids, grade I, Milder erythema as compared to rest of colon Bx taken from right, left and rectal areas of colon in separate jars stool collected for c diff and GI stool panel Anorectum - normal Colon preparation: [place] Bowel Preparation Scale Right colon; 3 Transverse colon: 3 Left colon; 3 (0 = Unprepared colon segment with mucosa not seen due to solid stool that cannot be cleared. 1 = Portion of mucosa of the colon segment seen, but other areas of the colon segment not well seen due to staining, residual stool and/or opaque liquid. 2 = Minor amount of residual staining, small fragments of stool and/or opaque liquid, but mucosa of colon segment seen well. 3 = Entire mucosa of colon segment seen well with no residual staining, small fragments of stool or opaque liquid) Impression and Post Procedure Diagnosis: Endoscopy Findings: esophagitis gastritis post surgical changes Colonoscopy Findings: colitis Plan: Await Pathology results Repeat Colonoscopy in 10 years or earlier if clinically indicated High fiber diet leaflet avoid straining at stool, epsom salts and sitz bath, anusol supps or cream might consider entyvio for her check if taking PPI, may benefit from it if not taking Above findings were reviewed with the patient and relevant handouts were provided if indicated.
[2022-01-10 11:47] VITALS: BP 99/40; PULSE 49; RESP 16; TEMP 36.6; O2SAT 98
[2022-01-10 12:02] VITALS: BP 112/49; PULSE 49; RESP 16; TEMP 36.6; O2SAT 100
[2022-01-10 14:27] LABS: CDiff Gene PCR NEGATIVE (Negative)
[2022-01-10 15:27] LABS: Adenovirus F 40/41 Not Detected (Not Detect.); Astrovirus Not Detected (Not Detect.); Campylobacter Not Detected (Not Detect.); Cryptosporidium Not Detected (Not Detect.); Cyclospora cayetanensis Not Detected (Not Detect.); E. coli EAEC Not Detected (Not Detect.); E. coli EPEC Not Detected (Not Detect.); E. coli ETEC Not Detected (Not Detect.); E. coli STEC Not Detected (Not Detect.); Entamoeba histolytica Not Detected (Not Detect.); Giardia lamblia Not Detected (Not Detect.); Norovirus GI/GII Not Detected (Not Detect.); Plesiomonas shigelloides Not Detected (Not Detect.); Rotavirus A Not Detected (Not Detect.); Salmonella Not Detected (Not Detect.); Sapovirus Not Detected (Not Detect.); Shigella sp./EIEC Not Detected (Not Detect.); Vibrio Not Detected (Not Detect.); Vibrio Cholerae Not Detected (Not Detect.); Yersinia enterocolitica Not Detected (Not Detect.)
== END 2022-01-10 12:52 | disposition home or self-care (01) ==
PROVIDERS: PCP Internal Medicine; Visit Provider Internal Medicine Gastroenterology
PROC: (CPT 45380; principal; 2022-01-10 13:30)
DX: K52.9 Noninfective gastroenteritis and colitis, unspecified (principal); K62.89 Other specified diseases of anus and rectum; K64.0 First degree hemorrhoids; K29.50 Unspecified chronic gastritis without bleeding; K20.80 Other esophagitis without bleeding; K44.9 Diaphragmatic hernia without obstruction or gangrene; Z79.899 Other long term (current) drug therapy
CPT/HCPCS: 45380; 43239; 36415; 87493; 87507; 88305; 88342

== ENCOUNTER 2022-04-14 09:30 | Emergency (ER) | payer MEDICAID, SELFPAY ==
[2022-04-14 09:41] VITALS: BP 126/57; PULSE 71; RESP 16; TEMP 36.8; O2SAT 94; BMI 34.3
--- NOTE | 2022-04-14 10:03 | ED.GENADULT ---
HPI - General Adult General Chief complaint: General Medical Stated complaint: headache, not feeling well Time Seen by Provider: 04/14/22 09:51 Source: patient Mode of arrival: ambulatory Limitations: no limitations History of Present Illness HPI narrative: 56-year-old female came in for evaluation of generalized body ache, joint pain, sore throat, nasal and sinuses congestion, sneezing, and nonproductive cough, patient has been exposed to sick contact no recent travel. Related Data Home Medications Medication Instructions Recorded Confirmed cholecalciferol (vitamin D3) 50 50 mcg PO DAILY 06/04/21 07/31/21 mcg (2,000 unit) capsule fluoxetine 20 mg capsule 20 mg PO QAM 06/04/21 07/31/21 trazodone 100 mg tablet 100 mg PO BEDTIME 06/04/21 07/31/21 Previous Rx's Medication Instructions Recorded ondansetron 4 mg disintegrating 4 mg PO Q8H PRN nausea and 09/07/21 tablet vomiting #10 tabs peg-electrolyte solution 420 gram 240 ml PO Q10M #4,000 mL 09/07/21 oral solution (Nulytely Lemon-[place]) mesalamine 0.375 gram 1.5 g PO DAILY 4 weeks #112 caps 11/02/21 capsule,extended release 24 hr (Apriso) Allergies Allergy/AdvReac Type Severity Reaction Status Date / Time shellfish derived Allergy Unknown RASH, Verified 06/04/21 14:50 [SHELLFISH DERIVED] THROAT ITCHINESS Seafood Allergy Unknown Unknown Uncoded 06/04/21 14:50 Review of Systems Review of Systems: All other systems are reviewed and are negative Constitutional: Reports as per HPI and Reports no additional constitutional complaints Eyes: Reports as per HPI and Reports no additional eye complaints Reports system reviewed and no additional complaints, except as documented Cardiovascular: Reports as per HPI and Reports no additional cardiovascular complaints Respiratory: Reports as per HPI and Reports no additional respiratory complaints Gastrointestinal: Reports as per HPI and Reports no additional gastrointestinal complaints Genitourinary: Reports no additional female genitourinary complaints Musculoskeletal: Reports no additional musculoskeletal complaints Skin/Breast: Reports system reviewed and no additional complaints, except as docu Psychiatric: Reports no additional psychiatric complaints Endocrine: Reports no additional endocrine complaints Hematologic/Lymphatic: Reports no additional hematologic/lymphatic complaints Allergic/Immunologic: Reports no additional allergic/immunologic complaints Reports system reviewed and no additional complaints, except as documented and Reports Abnormal speech present [facility] Past Medical History Surgical History History of esophagogastroduodenoscopy (EGD) Hx of colonoscopy Family History Family History Mother Diabetes Breast cancer Brother Diabetes Brother Diabetes Social History Social History Alcohol intake: unknown Patient Tobacco Use Status: Never used Tobacco Second Hand Smoke Exposure: No Advance Directives: No Advance Directives Information Provided: No Physical Exam ED Vital Signs: Vital Signs - 24 hr 04/14/22 09:41 Temperature 98.3 F Pulse Rate 71 Respiratory Rate 16 Blood Pressure 126/57 L Pulse Oximetry 94 Oxygen Delivery Method Room Air BMI result Body Mass Index 34.3 Vital signs have been reviewed as appeared to be correct. Blood pressure normal. Heart rate normal. Respiration rate normal. Temperature normal. Oxygen saturation normal. Appearance: Alert. Oriented X3. No acute distress. Head: Normal external exam. Normocephalic. Atraumatic. No Baez signs noted. No raccoon eyes noted Eyes: PERRLA. EOMI. Conjunctiva and sclera normal. Eyelids normal. ENT: TM's Normal. Pharynx normal. Uvula midline. Moist mucous membranes. No trismus noted. No drooling noted. No muffled voice noted. Neck: Normal inspection. Neck supple. FROM. No adenopathy. Thyroid Normal. No meningeal signs. No neck mass noted. CVS: Normal heart rate and rhythm. Heart sound normal. No murmurs noted. Pulses normal throughout. Respiratory: No respiratory distress. Painless inspiration. Breath sounds normal. No wheezes/rales/rhonchi noted. Chest nontender. No accessory muscle usage noted or decreased air movement noted. Abdomen: Soft and nontender. Bowel sounds normal in all 4 quadrants. No distention noted. No organomegaly noted. No visible injury noted. Back: No CVA tenderness. Full range of motion noted. Skin: Skin warm and dry. Normal skin color. Normal skin turgor. No rashes/lesions/lacerations noted. Extremities: No lower extremity edema. Extremities exhibit normal range of motion. Extremities nontender. Neuro: Oriented X 3. Cranial nerve exam: II-XII are grossly intact No motor deficit. No sensory deficit. Reflexes normal. Course Course Course Narrative: COVID-19 POSITIVE. Self quarantine, frequent hand washing, where face mask at all times. Take Tylenol for pain. Off work for 7 days. Medications Administered Discontinued Medications Generic Name Dose Route Start Last Admin Trade Name Freq PRN Reason Stop Dose Admin Ibuprofen 600 mg 04/14/22 10:04 04/14/22 10:09 Ibuprofen 600 Mg Tablet PO 04/14/22 10:05 600 mg ONCE ONE Administration Medical Decision Making Medical Decision Making Differential Diagnoses: Differential diagnosis (COVID-19 infection, RSV infection, influenza, pneumonia, bronchitis.) Lab Attestation: I reviewed the patient's lab results. Discharge Plan Discharge Clinical Impression: COVID-19 virus infection Patient Disposition: Home, Self-Care Instructions: Covid-19 Viral Syndrome and Novel Coronavirus (ED) Hey/Ath Additional Instructions: FREQUENT HAND WASHING, WEAR A FACE MASK AT ALL TIMES, SELF-QUARANTINE FOR 5 DAYS. SEEK IMMEDIATE MEDICAL ATTENTION FOR SHORTNESS OF BREATH. Prescriptions: No Action mesalamine [Apriso] 0.375 gram capsule,extended release 24hr 1.5 g PO DAILY 28 Days Qty: 112 0RF fluoxetine 20 mg capsule 20 mg PO QAM trazodone 100 mg tablet 100 mg PO BEDTIME cholecalciferol (vitamin D3) 50 mcg (2,000 unit) capsule 50 mcg PO DAILY peg-electrolyte soln [Nulytely Lemon-[place]] 420 gram recon soln 240 ml PO Q10M Qty: 4000 0RF Rx Instructions: until fecal effluent is clear ondansetron 4 mg tablet,disintegrating 4 mg PO Q8H PRN (Reason: nausea and vomiting) Qty: 10 0RF Referrals: Reyes Lugo MD [Primary Care Provider] - Stand Alone Forms: Work/School Release
[2022-04-14 10:04] LABS: COVID-19 Test Positive (Negative); IDNOW Serial# 16C4AD1C
[2022-04-14] MEDS: Ibuprofen 600 MG TABLET PO (10:09)
--- NOTE | 2022-04-14 10:11 | PC.NURSE ---
pt a/o x 3. Medicated for body aches. (+) for Covid. Aware of test result. States this is her 3rd Covid infection.
[2022-04-14 10:22] LABS: IDNOW Serial# BCCEAD1C; Influenza A Negative (Negative); Influenza B2 Negative (Negative)
== END 2022-04-14 10:26 | disposition home or self-care (01) ==
PROVIDERS: Emergency Provider Emergency Medicine; PCP Internal Medicine
DX: U07.1 COVID-19 (principal); R51.9 Headache, unspecified; M79.10 Myalgia, unspecified site; R05.9 Cough, unspecified
CPT/HCPCS: 87502; 87635; 99283

== ENCOUNTER 2022-07-19 10:47 | Outpatient (REF) | payer MEDICAID, SELFPAY ==
[2022-07-19 12:16] LABS: MANUAL DIFF FLAG NO
[2022-07-19 12:37] LABS: Basophils Percent Auto 0.7 % (0-2); Eosinophils Absolute Auto 0.1 X10*3/uL (0.0-0.4); Eosinophils Percent Auto 2.4 % (0-4); Hematocrit 37.8 % (37.0-47.0); Hemoglobin 12.3 g/dl (12.0-16.0); Imm Gran Abs Auto 0.02 X10*3/uL (0.00-0.03); Imm Gran Pct Auto 0.4 % (0.0-0.4); Lymphocytes Absolute Auto 0.9 X10*3/uL (1.2-4.9); Lymphocytes Percent Auto 18.4 % (20-40); Mean Corpuscular HGB Conc 32.5 g/dl (31.0-35.0); Mean Corpuscular Hemoglobin 28.8 pg (27.0-33.0); Mean Corpuscular Volume 88.5 fL (80.0-98.0); Mean Platelet Volume 9.1 fL (9.4-12.3); Monocytes Absolute Auto 0.6 X10*3/uL (0.1-1.2); Monocytes Percent Auto 12.8 % (2-11); Neutrophils Percent Auto 65.3 % (45-73); Platelet Count 309 X10*3/uL (160-400); Red Blood Count 4.27 X10*6/uL (4.20-5.50); Red Cell Distribution Width 13.4 % (11.0-16.0); White Blood Count 4.6 X10*3/uL (4.8-10.8)
[2022-07-19 14:08] LABS: Alanine Aminotransferase 15 U/L (0-31); Albumin Level 3.6 g/dL (3.5-5.0); Alkaline Phosphatase 102 U/L (39-117); Anion Gap 11 (12-20); Aspartate Amino Transferase 13 U/L (5-31); Bilirubin Total 0.3 mg/dL (0.0-1.0); Blood Urea Nitrogen 21 mg/dL (9-16); C Reactive Protein 0.57 mg/dL (< or = 0.50); Calcium 9.3 mg/dL (8.4-10.2); Carbon Dioxide 25 mmol/L (22-29); Chloride 108 mmol/L (96-108); Estimated Glomerular Filt Rate > 60; Glucose Random 182 mg/dL (60-115); Sodium 140 mmol/L (135-145); Total Protein 6.7 g/dL (6.5-8.0)
[2022-07-19 14:39] LABS: Ferritin 12 ng/mL (10-250); Vitamin B12 661 pg/mL (200-900)
[2022-07-21 23:54] LABS: TS Negative Control Passed; TS Panel A 0; TS Panel B 0; TS Positive Control Passed; TSpotTB Negative (Negative)
[2022-07-22 11:51] LABS: HBc Num1 0.08 S/CO (0.00-0.79); HBsAGNum1 0.37 S/CO (0.00-0.99); Hepatitis A Antibody IgM 0.25 Index (0-0.79); Hepatitis B Core Antibody Nonreactive (Nonreactive); Hepatitis B Surface Antigen Negative (Negative); ~Hepatitis A Antibody IgM Nonreactive (Nonreactive); ~Hepatitis B Surface Antibody NONREACTIVE (Nonreactive); ~Hepatitis C Antibody Nonreactive (Nonreactive)
== END 2022-07-19 10:48 | disposition home or self-care (01) ==
LOC: HO.LAB 10:47
PROVIDERS: PCP Internal Medicine; Referring Provider Internal Medicine; Visit Provider Internal Medicine Gastroenterology
DX: K75.81 Nonalcoholic steatohepatitis (NASH) (principal); K52.9 Noninfective gastroenteritis and colitis, unspecified
CPT/HCPCS: 36415; 80053; 82607; 82728; 82746; 85025; 86140; 86481; 86704; 86706; 86709; 86803; 87340; 99212

== ENCOUNTER 2022-07-28 | Outpatient (REF) | payer MEDICAID, SELFPAY ==
[2022-07-29 13:41] LABS: Adenovirus F 40/41 Not Detected (Not Detect.); Astrovirus Not Detected (Not Detect.); Campylobacter Not Detected (Not Detect.); Cryptosporidium Not Detected (Not Detect.); Cyclospora cayetanensis Not Detected (Not Detect.); E. coli EAEC Not Detected (Not Detect.); E. coli EPEC Not Detected (Not Detect.); E. coli ETEC Not Detected (Not Detect.); E. coli STEC Not Detected (Not Detect.); Entamoeba histolytica Not Detected (Not Detect.); Giardia lamblia Not Detected (Not Detect.); Plesiomonas shigelloides Not Detected (Not Detect.); Rotavirus A Not Detected (Not Detect.); Salmonella Not Detected (Not Detect.); Sapovirus Not Detected (Not Detect.); Shigella sp./EIEC Not Detected (Not Detect.); Vibrio Not Detected (Not Detect.); Vibrio Cholerae Not Detected (Not Detect.); Yersinia enterocolitica Not Detected (Not Detect.)
[2022-07-29 13:42] LABS: Norovirus GI/GII Detected (Not Detect.)
[2022-08-03 21:48] LABS: Calprotectin, Fecal 354 mcg/g
== END 2022-07-28 00:01 | disposition home or self-care (01) ==
LOC: HO.LNP
PROVIDERS: Internal Medicine Gastroenterology; Visit Provider Internal Medicine
DX: K52.9 Noninfective gastroenteritis and colitis, unspecified (principal)
CPT/HCPCS: 83993; 87493; 87507

== ENCOUNTER 2022-08-09 10:16 | Outpatient (REF) | payer MEDICAID, SELFPAY ==
[2022-08-11 22:43] LABS: TS Negative Control Passed; TS Panel A 0; TS Panel B 1; TS Positive Control Passed; TSpotTB Negative (Negative)
== END 2022-08-09 10:17 | disposition home or self-care (01) ==
LOC: HO.LAB 10:16
PROVIDERS: Visit Provider Internal Medicine Gastroenterology
DX: Z11.1 Encounter for screening for respiratory tuberculosis (principal)
CPT/HCPCS: 36415; 86481

== ENCOUNTER 2022-09-09 12:58 | Outpatient (REF) | payer MEDICAID, SELFPAY | END 2022-09-09 12:59 | disposition home or self-care (01) | LOC: HO.MDS 12:58 | PROVIDERS: Visit Provider Internal Medicine Gastroenterology | DX: K50.90 Crohn's disease, unspecified, without complications (principal) | CPT/HCPCS: 96365; J3380 ==

== ENCOUNTER 2022-09-23 11:11 | Outpatient (REF) | payer MEDICAID, SELFPAY | END 2022-09-23 11:12 | disposition home or self-care (01) | LOC: HO.MDS 11:11 | PROVIDERS: Visit Provider Internal Medicine Gastroenterology | DX: K50.90 Crohn's disease, unspecified, without complications (principal) | CPT/HCPCS: 96365; J3380 ==

== ENCOUNTER 2022-10-25 09:22 | Outpatient (REF) | payer MEDICAID, SELFPAY ==
--- NOTE | ~2022-10-25 | XR_ITS ---
EXAMINATION: XR HAND, RIGHT XR HAND, LEFT XR CERVICAL SPINE CLINICAL INFORMATION: Worsening pain bilateral hands and neck, arthritis COMPARISON: Cervical spine 01/18/2021 TECHNIQUE: 3 views of the left hand, 3 views of the right hand and 4 views of the cervical spine. FINDINGS: CERVICAL SPINE: Moderate to marked loss of disc space height at C4-C5 with hypertrophic change. Mild spondylosis in the lower cervical spine. LEFT HAND: Advanced degenerative changes 1st carpometacarpal joint. Moderate degenerative changes 1st carpometacarpal joint with joint space narrowing and hypertrophic change. Mild degenerative changes in scattered interphalangeal joints with hypertrophic change most notable in the 2nd and 3rd DIP joints. RIGHT HAND: Radiopaque marker placed by the technologist to indicate the area of concern indicated by the patient adjacent to the 5th digit. Severe erosive and destructive changes at the DIP joint of the 5th digit. [id number]-vs-kptdvcnx degenerative changes in scattered IP joints, most notable in the 2nd and 3rd DIP joints. Moderate degenerative changes 1st metacarpophalangeal joint. Severe degenerative changes 1st carpometacarpal joint with joint space narrowing and hypertrophic change. XR/XR hand LT min 3V IMPRESSION: 1. Dgnievrc-jm-[id number] degenerative changes at C4-C5. 2. Scattered degenerative changes in bilateral hands as detailed above. 3. Severe erosive and destructive changes at the DIP joint of the right 5th digit in the area of concern indicated by the patient. Correlation with the clinical exam recommended to determine further management. Recommend follow-up imaging in 10-14 days if fracture is suspected.
--- NOTE | ~2022-10-25 | XR_ITS ---
EXAMINATION: XR HAND, RIGHT XR HAND, LEFT XR CERVICAL SPINE CLINICAL INFORMATION: Worsening pain bilateral hands and neck, arthritis COMPARISON: Cervical spine 01/18/2021 TECHNIQUE: 3 views of the left hand, 3 views of the right hand and 4 views of the cervical spine. FINDINGS: CERVICAL SPINE: Moderate to marked loss of disc space height at C4-C5 with hypertrophic change. Mild spondylosis in the lower cervical spine. LEFT HAND: Advanced degenerative changes 1st carpometacarpal joint. Moderate degenerative changes 1st carpometacarpal joint with joint space narrowing and hypertrophic change. Mild degenerative changes in scattered interphalangeal joints with hypertrophic change most notable in the 2nd and 3rd DIP joints. RIGHT HAND: Radiopaque marker placed by the technologist to indicate the area of concern indicated by the patient adjacent to the 5th digit. Severe erosive and destructive changes at the DIP joint of the 5th digit. Igvz-ai-jqqgxnkd degenerative changes in scattered IP joints, most notable in the 2nd and 3rd DIP joints. Moderate degenerative changes 1st metacarpophalangeal joint. Severe degenerative changes 1st carpometacarpal joint with joint space narrowing and hypertrophic change. XR/XR cervical spine 3V IMPRESSION: 1. Hptuqnbg-fu-lqsvpg degenerative changes at C4-C5. 2. Scattered degenerative changes in bilateral hands as detailed above. 3. Severe erosive and destructive changes at the DIP joint of the right 5th digit in the area of concern indicated by the patient. Correlation with the clinical exam recommended to determine further management. Recommend follow-up imaging in 10-14 days if fracture is suspected.
--- NOTE | ~2022-10-25 | XR_ITS ---
EXAMINATION: XR HAND, RIGHT XR HAND, LEFT XR CERVICAL SPINE CLINICAL INFORMATION: Worsening pain bilateral hands and neck, arthritis COMPARISON: Cervical spine 01/18/2021 TECHNIQUE: 3 views of the left hand, 3 views of the right hand and 4 views of the cervical spine. FINDINGS: CERVICAL SPINE: Moderate to marked loss of disc space height at C4-C5 with hypertrophic change. Mild spondylosis in the lower cervical spine. LEFT HAND: Advanced degenerative changes 1st carpometacarpal joint. Moderate degenerative changes 1st carpometacarpal joint with joint space narrowing and hypertrophic change. Mild degenerative changes in scattered interphalangeal joints with hypertrophic change most notable in the 2nd and 3rd DIP joints. RIGHT HAND: Radiopaque marker placed by the technologist to indicate the area of concern indicated by the patient adjacent to the 5th digit. Severe erosive and destructive changes at the DIP joint of the 5th digit. Ulex-iz-cpoudcki degenerative changes in scattered IP joints, most notable in the 2nd and 3rd DIP joints. Moderate degenerative changes 1st metacarpophalangeal joint. Severe degenerative changes 1st carpometacarpal joint with joint space narrowing and hypertrophic change. XR/XR hand RT min 3V IMPRESSION: 1. Gydshsvu-tx-mcrmxe degenerative changes at C4-C5. 2. Scattered degenerative changes in bilateral hands as detailed above. 3. Severe erosive and destructive changes at the DIP joint of the right 5th digit in the area of concern indicated by the patient. Correlation with the clinical exam recommended to determine further management. Recommend follow-up imaging in 10-14 days if fracture is suspected.
== END 2022-10-25 09:23 | disposition home or self-care (01) ==
LOC: HO.XRAY 09:22
PROVIDERS: PCP Internal Medicine; Visit Provider Nurse Practitioner Primary Care
DX: M50.30 Other cervical disc degeneration, unspecified cervical region (principal); M79.641 Pain in right hand; M79.642 Pain in left hand
CPT/HCPCS: 72040; 73130

== ENCOUNTER 2022-11-07 08:42 | Outpatient (REF) | payer MEDICAID, SELFPAY | END 2022-11-07 08:43 | disposition home or self-care (01) | LOC: HO.MDS 08:42 | PROVIDERS: Visit Provider Internal Medicine Gastroenterology | DX: K52.9 Noninfective gastroenteritis and colitis, unspecified (principal) | CPT/HCPCS: 96365; J3380 ==

== ENCOUNTER 2022-11-29 10:05 | Outpatient (REF) | payer MEDICAID, SELFPAY ==
--- NOTE | ~2022-11-29 | MM_ITS ---
EXAMINATION: BONE DENSITOMETRY CLINICAL INDICATION: Postmenopausal. COMPARISON: This is the patient's baseline examination. TECHNIQUE: Using a [employer] DXA System (software version: 13.1) manufactured by [employer], dual-energy x-ray absorptiometry was performed of the lumbar spine and left hip. The images are of good technical quality. Summary results are attached. FINDINGS: LEFT FEMUR, NECK: BMD 0.853 g/cm2, Z-score 0.6, T-score -1.3, osteopenia. LEFT FEMUR, TOTAL: BMD 0.946 g/cm2, Z-score -0.1, T-score -0.5, normal. AP SPINE L1-L2 (excluding L3 and L4): The data of L1-L4 has been changed to exclude the L3 and L4 vertebral bodies, because degenerative sclerosis at these levels may cause overestimation of lumbar spine density. BMD 0.946 g/cm2, Z-score -1.4, T-score -1.8, osteopenia. IDENTIFIED RISK FACTORS: Menopause, secondary osteoporosis, family history (parent hip fracture), history of fracture (adult). HISTORY OF FRACTURE: Other. MEDICATIONS: None listed. MM/XR DEXA axial skeleton IMPRESSION: 1. DIAGNOSIS: Osteopenia based on the lowest T-score value of -1.8 in the lumbar spine applying World Health Organization criteria. 2. 10-YEAR FRACTURE RISK PREDICTION, FRAX: Major osteoporotic fracture (clinical spine, forearm, hip or shoulder) 13.5%. Hip fracture 0.5%. 3. Treatment Recommendations: NOF guidelines recommend consideration for treatment in postmenopausal women and men age 50 and older presenting with the following: -A hip or vertebral (clinical or morphometric) fracture. -T-score less than or equal to -2.5 at the femoral neck or spine after appropriate evaluation to exclude secondary causes. -Low bone mass at the hip or spine and a 10-year fracture probability by FRAX of greater than or equal to 3% for hip fracture or greater than or equal to 20% for major osteoporotic fracture based on the [place] adapted WHO algorithm. 4. Other Recommendations: All treatment decisions require clinical judgment and consideration of individual patient factors, including patient preferences, comorbidities, previous drug use, risk factors not captured in the FRAX model (e.g. frailty, falls, vitamin D deficiency, increased bone turnover, interval significant decline in bone density) and possible under or overestimation of fracture risk by FRAX. Additional medical evaluation for secondary cause of low bone mineral density may be appropriate. FUTURE SCAN RECOMMENDATION: People with diagnosed cases of osteoporosis or at high risk for fracture should have regular bone mineral density tests. For patients eligible for Medicare, routine testing is allowed once every 2 years. The testing frequency can be increased to one year for patients who have rapidly progressing disease, those who are receiving or discontinuing medical therapy to restore bone mass, or have additional risk factors.
--- NOTE | ~2022-11-29 | MM_ITS ---
EXAMINATION: MM SCREENING DIGITAL BREAST TOMOSYNTHESIS, BILATERAL CLINICAL INFORMATION: Screening. Asymptomatic. The lifetime risk of breast cancer based on the Tyrer-Cuzick Model is 14%. COMPARISON: Mammography: This study is compared with prior exams dating back to 2019. TECHNIQUE: Digital breast tomosynthesis is performed in both the craniocaudal and mediolateral oblique views along with computer-aided detection (CAD). Synthesized 2D images are generated from the tomosynthesis. FINDINGS: The breasts are almost entirely fatty (ACR BI-RADS breast composition Category a). There are no significant masses, abnormal calcifications, or other abnormalities. MM/MM tomosynthesis screening BI IMPRESSION: No mammographic evidence of malignancy. ASSESSMENT: BI-RADS BI-RADS 1 - Negative RECOMMENDATION: Routine annual mammography screening. 1 year F/U This examination should not preclude the clinical evaluation of a suspicious palpable abnormality. This patient's information was entered into a reminder system with a target due date for their next mammogram.
== END 2022-11-29 10:06 | disposition home or self-care (01) ==
LOC: HO.MAMMO 10:05
PROVIDERS: PCP Nurse Practitioner Primary Care; Visit Provider Advanced Practice Midwife
DX: Z12.31 Encounter for screening mammogram for malignant neoplasm of breast (principal); Z13.820 Encounter for screening for osteoporosis; Z78.0 Asymptomatic menopausal state
CPT/HCPCS: 77063; 77067; 77080

== ENCOUNTER → 2022-11-29 11:00 | Outpatient (BNV) | payer MEDICAID, SELFPAY | PROVIDERS: PCP Nurse Practitioner Primary Care; Visit Provider Radiology Diagnostic Radiology | DX: N95.1 Menopausal and female climacteric states (principal) | CPT/HCPCS: 77063; 77067; 77080 ==

== ENCOUNTER 2022-12-04 09:21 | Emergency (ER) | payer MEDICAID, SELFPAY ==
--- NOTE | ~2022-12-04 | CT_ITS ---
EXAMINATION: CT CHEST WITH CONTRAST CLINICAL INFORMATION: Irregular chest x-ray. COMPARISON: Chest radiograph from earlier today. TECHNIQUE: Multidetector volumetric CT imaging of the chest was obtained after the administration of 50 mL of Omnipaque 350 intravenous contrast without immediate adverse reactions. Axial MIP volume rendering provided. Sagittal and coronal reformatted images were obtained. This CT examination was performed using dose optimization techniques as appropriate, variously including the following: *Automated exposure control *Adjustment of mA and/or kV according to patient size (this includes techniques or standardized protocols for targeted exams where dose is matched to indication/reason for exam; i.e. extremities or head) *Use of iterative reconstruction technique DLP: 329 mGy-cm FINDINGS: LUNGS/PLEURA/AIRWAYS: A few scattered small nodules are seen. Administrative Volunteer nodules are as follows: Left upper lobe, lateral subpleural: 0.3 cm, image 186, series 4 Right upper lobe, anterolateral: 0.3 cm, image 238, series 4 Right lower lobe, posterolateral: 0.3 cm, image 272, series 4 Left lower lobe, lateral: 0.3 cm, image 290, series 4 Mild bibasilar linear atelectasis/scarring is seen. There are no pleural effusions. The airways are patent. MEDIASTINUM: Small nodule laterally in the right thyroid lobe without other significant abnormality not requiring follow-up. The thoracic aorta is unremarkable. No coronary artery calcifications. No pericardial effusion. UPPER ABDOMEN: Gastric postsurgical changes with moderate hiatal hernia. Mild dilatation of the distal esophagus. No other significant gastric abnormality. Mild diffuse decreased hepatic attenuation. The spleen measures up to 13.5 cm in cc dimension. MUSCULOSKELETAL: Mild degenerative changes. SOFT TISSUES: Unremarkable. CT/CT chest w IV con IMPRESSION: 1. No abnormality to correlate with radiographic findings from today. This could be associated with the moderate hiatal hernia in the upright position. No significant pulmonary abnormality. Scattered nodules measuring up to 0.3 cm are nonspecific. Following Fleischner Society guidelines, no imaging follow-up is recommended at this time. Routine radiographic follow-up as clinically indicated. 2. Possible mild hepatic steatosis and borderline splenomegaly.
--- NOTE | ~2022-12-04 | XR_ITS ---
EXAMINATION: XR CHEST CLINICAL INFORMATION: Chest pain. COMPARISON: 09/27/2016 chest radiographs. TECHNIQUE: Frontal view of the chest was obtained. FINDINGS: Increased opacification is seen in the right infrahilar region with triangular appearance. The left lung is clear. The heart and mediastinal structures are unremarkable. XR/XR chest 1V IMPRESSION: Irregular opacification in the right infrahilar region was not seen previously and could represent atelectasis or an infiltrate. Further evaluation with a chest CT scan is recommended, preferably with contrast, to assess for underlying abnormality.
--- NOTE | 2022-12-04 09:23 | ECG_ITS ---
Test Reason : cp Blood Pressure : / mmHG Vent. Rate : 057 BPM Atrial Rate : 057 BPM P-R Int : 178 ms QRS Dur : 090 ms QT Int : 414 ms P-R-T Axes : 033 012 031 degrees QTc Int : 402 ms Sinus bradycardia Otherwise normal ECG No significant changes when compared with the previous EKG of 24 feb 2019 Referred By: Generic ED Physician Electronically Signed By:CLINT DAIGLE
[2022-12-04 09:31] VITALS: BP 124/55; PULSE 61; RESP 17; TEMP 36; O2SAT 98; BMI 32.9
[2022-12-04 09:46] LABS: MANUAL DIFF FLAG NO
[2022-12-04 09:51] LABS: Basophils Percent Auto 0.6 % (0-2); Eosinophils Absolute Auto 0.2 X10*3/uL (0.0-0.4); Eosinophils Percent Auto 3.5 % (0-4); Hematocrit 40.4 % (37.0-47.0); Hemoglobin 13.3 g/dl (12.0-16.0); Imm Gran Abs Auto 0.01 X10*3/uL (0.00-0.03); Imm Gran Pct Auto 0.2 % (0.0-0.4); Lymphocytes Absolute Auto 1.4 X10*3/uL (1.2-4.9); Lymphocytes Percent Auto 27.1 % (20-40); Mean Corpuscular HGB Conc 32.9 g/dl (31.0-35.0); Mean Corpuscular Hemoglobin 28.1 pg (27.0-33.0); Mean Corpuscular Volume 85.4 fL (80.0-98.0); Mean Platelet Volume 8.7 fL (9.4-12.3); Monocytes Absolute Auto 0.4 X10*3/uL (0.1-1.2); Monocytes Percent Auto 8.6 % (2-11); Neutrophils Absolute Auto 3.1 x10*3/uL (2.0-8.3); Platelet Count 226 X10*3/uL (160-400); Red Blood Count 4.73 X10*6/uL (4.20-5.50); Red Cell Distribution Width 12.5 % (11.0-16.0); White Blood Count 5.1 X10*3/uL (4.8-10.8)
[2022-12-04 09:59] LABS: Anion Gap 13 (12-20); Blood Urea Nitrogen 18 mg/dL (9-16); Calcium 9.5 mg/dL (8.4-10.2); Carbon Dioxide 24 mmol/L (22-29); Chloride 108 mmol/L (96-108); Creatinine Clr Calc Pharmacy 74.2; Estimated Glomerular Filt Rate > 60; Glucose Random 131 mg/dL (60-115); Sodium 141 mmol/L (135-145)
[2022-12-04 10:09] LABS: Troponin-I High Sensitivity < 2.7 ng/L (<3.5-17.0)
--- NOTE | 2022-12-04 12:22 | ED_ITS ---
HPI - General Adult General Chief complaint: General Medical Stated complaint: chest pain Time Seen by Provider: 12/04/22 12:09 Source: patient Mode of arrival: ambulatory Limitations: no limitations History of Present Illness HPI narrative: 57-year-old female otherwise healthy came in for evaluation of chest pain. 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 No fever, no chills, no recent travel, no lower extremity swelling, no history of cardiac disease, no history of DVT/PE. Related Data Home Medications Medication Instructions Recorded Confirmed fluoxetine 20 mg capsule 20 mg PO QAM 06/04/21 07/31/21 trazodone 100 mg tablet 100 mg PO BEDTIME 06/04/21 07/31/21 Previous Rx's Medication Instructions Recorded ondansetron 4 mg disintegrating 4 mg PO Q8H PRN nausea and 09/07/21 tablet vomiting #10 tabs budesonide 3 mg 9 mg PO DAILY #90 ea 07/19/22 capsule,delayed,extended release Allergies Allergy/AdvReac Type Severity Reaction Status Date / Time shellfish derived Allergy Unknown RASH, Verified 07/19/22 10:57 [SHELLFISH DERIVED] THROAT ITCHINESS Seafood Allergy Unknown Unknown Uncoded 07/19/22 10:57 Review of Systems Review of Systems: All other systems are reviewed and are negative Constitutional: Reports as per HPI and Reports no additional constitutional complaints Eyes: Reports as per HPI and Reports no additional eye complaints Reports system reviewed and no additional complaints, except as documented Cardiovascular: Reports as per HPI and Reports no additional cardiovascular complaints Respiratory: Reports as per HPI and Reports no additional respiratory complaints Gastrointestinal: Reports as per HPI and Reports no additional gastrointestinal complaints Genitourinary: Reports no additional female genitourinary complaints Musculoskeletal: Reports no additional musculoskeletal complaints Skin/Breast: Reports system reviewed and no additional complaints, except as docu Psychiatric: Reports no additional psychiatric complaints Endocrine: Reports no additional endocrine complaints Hematologic/Lymphatic: Reports no additional hematologic/lymphatic complaints Allergic/Immunologic: Reports no additional allergic/immunologic complaints Reports system reviewed and no additional complaints, except as documented and Reports Abnormal speech present PMFSH Past Medical History Surgical History History of esophagogastroduodenoscopy (EGD) Hx of colonoscopy Family History Family History Mother Diabetes Breast cancer Brother Diabetes Brother Diabetes Father Colon cancer Social History Social History Alcohol intake: never Patient Tobacco Use Status: Never used Tobacco Smoked in Last 30 Days: No Second Hand Smoke Exposure: No Use of substances other than those prescribed or required for medical reasons: No Advance Directives: No Physical Exam ED Vital Signs: Vital Signs - 24 hr 12/04/22 09:31 12/04/22 12:33 Temperature 96.8 F 98.1 F Pulse Rate 61 90 Respiratory Rate 17 18 Blood Pressure 124/55 L 109/66 Pulse Oximetry 98 99 Oxygen Delivery Method Room Air Room Air BMI result Body Mass Index 32.9 Vital signs have been reviewed as appeared to be correct. Blood pressure normal. Heart rate normal. Respiration rate normal. Temperature normal. Oxygen saturation normal. Appearance: Alert. Oriented X3. No acute distress. Head: Normal external exam. Normocephalic. Atraumatic. No Baez signs noted. No raccoon eyes noted Eyes: PERRLA. EOMI. Conjunctiva and sclera normal. Eyelids normal. ENT: TM's Normal. Pharynx normal. Uvula midline. Moist mucous membranes. No trismus noted. No drooling noted. No muffled voice noted. Neck: Normal inspection. Neck supple. FROM. No adenopathy. Thyroid Normal. No meningeal signs. No neck mass noted. CVS: Normal heart rate and rhythm. Heart sound normal. No murmurs noted. Pulses normal throughout. Respiratory: No respiratory distress. Painless inspiration. Breath sounds normal. No wheezes/rales/rhonchi noted. Reproducible tenderness left 3rd and 4th costochondral junction with no redness or hotness or step-off or deformity.. No accessory muscle usage noted or decreased air movement noted. Abdomen: Soft and nontender. Bowel sounds normal in all 4 quadrants. No distention noted. No organomegaly noted. No visible injury noted. Back: No CVA tenderness. Full range of motion noted. Skin: Skin warm and dry. Normal skin color. Normal skin turgor. No rashes/lesions/lacerations noted. Extremities: No lower extremity edema. Extremities exhibit normal range of motion. Extremities nontender. Neuro: Oriented X 3. Cranial nerve exam: II-XII are grossly intact No motor deficit. No sensory deficit. Reflexes normal. Course Course Course Narrative: 57-year-old female otherwise healthy came in for evaluation of chest pain, patient with HEART SCORE OF 1, no risk for pulmonary embolism with negative D- dimer, reproducible chest wall tenderness. Chest x-ray showing a right infrahilar region opacification and CT of the chest is recommended by radiologist, CT of the chest was ordered and signed out to Dr. Ibarra to review the CT and dispo the patient accordingly. Medications Administered Discontinued Medications Generic Name Dose Route Start Last Admin Trade Name Freq PRN Reason Stop Dose Admin Ibuprofen 600 mg 12/04/22 12:30 12/04/22 12:39 Ibuprofen 600 Mg Tablet PO 12/04/22 12:31 600 mg ONCE ONE Administration Iohexol 100 ml 12/04/22 15:51 12/04/22 15:51 Iohexol 350 Mg/Ml 100 Ml Infus..Btl IV 12/04/22 15:52 65 ml ONCE ONE Administration Medical Decision Making Differential Diagnosis Differential Diagnoses: The differential diagnosis associated with the presentation includes (ACS, pulmonary embolism, pneumonia, pneumothorax, rib fracture, costochondritis, severe anemia, electrolyte abnormality.) Admission/Observation Consideration of admission/observation: Escalation of care including admission/observation considered Lab Data MDM Lab Attestation statement: I reviewed the patient's lab results. 12/04/22 09:43 12/04/22 09:43 Labs: Lab Results 12/04/22 12/04/22 12/04/22 Range/Units 09:43 09:43 09:43 WBC 5.1 (4.8-10.8) X10*3/uL RBC 4.73 (4.20-5.50) X10*6/uL Hgb 13.3 (12.0-16.0) g/dl Hct 40.4 (37.0-47.0) % MCV 85.4 (80.0-98.0) fL MCH 28.1 (27.0-33.0) pg MCHC 32.9 (31.0-35.0) g/dl RDW 12.5 (11.0-16.0) % Plt Count 226 D (160-400) X10*3/uL MPV 8.7 L (9.4-12.3) fL Immature Gran % (Auto) 0.2 (0.0-0.4) % Neut % (Auto) 60.0 (45-73) % Lymph % (Auto) 27.1 (20-40) % [place] % (Auto) 8.6 (2-11) % Eos % (Auto) 3.5 (0-4) % Baso % (Auto) 0.6 (0-2) % Lymph # (Auto) 1.4 (1.2-4.9) X10*3/uL [place] # (Auto) 0.4 (0.1-1.2) X10*3/uL Eos # (Auto) 0.2 (0.0-0.4) X10*3/uL Baso # (Auto) 0.0 (0.0-0.2) X10*3/uL Abs Immat Gran (auto) 0.01 (0.00-0.03) X10*3/uL Absolute Neuts (auto) 3.1 (2.0-8.3) x10*3/uL Absolute Nucleated RBC 0.000 (0.0-0.012) X10*3/uL Nucleated RBC % (auto) 0.0 (0.0-0.2) /100WBC D-Dimer High Sensitivty NG/ML Sodium 141 (135-145) mmol/L Potassium 4.0 (3.3-5.1) mmol/L Chloride 108 (96-108) mmol/L Carbon Dioxide 24 (22-29) mmol/L Anion Gap 13 (12-20) BUN 18 H (9-16) mg/dL Creatinine 0.87 (0.5-1.4) mg/dL Estim Creat Clear Calc 74.2 Estimated GFR > 60 Random Glucose 131 H (60-115) mg/dL Calcium 9.5 (8.4-10.2) mg/dL Troponin I High Sens < 2.7 (<3.5-17.0) ng/L 12/04/22 12/04/22 Range/Units 12:28 12:28 WBC (4.8-10.8) X10*3/uL RBC (4.20-5.50) X10*6/uL Hgb (12.0-16.0) g/dl Hct (37.0-47.0) % MCV (80.0-98.0) fL MCH (27.0-33.0) pg MCHC (31.0-35.0) g/dl RDW (11.0-16.0) % Plt Count (160-400) X10*3/uL MPV (9.4-12.3) fL Immature Gran % (Auto) (0.0-0.4) % Neut % (Auto) (45-73) % Lymph % (Auto) (20-40) % [place] % (Auto) (2-11) % Eos % (Auto) (0-4) % Baso % (Auto) (0-2) % Lymph # (Auto) (1.2-4.9) X10*3/uL [place] # (Auto) (0.1-1.2) X10*3/uL Eos # (Auto) (0.0-0.4) X10*3/uL Baso # (Auto) (0.0-0.2) X10*3/uL Abs Immat Gran (auto) (0.00-0.03) X10*3/uL Absolute Neuts (auto) (2.0-8.3) x10*3/uL Absolute Nucleated RBC (0.0-0.012) X10*3/uL Nucleated RBC % (auto) (0.0-0.2) /100WBC D-Dimer High Sensitivty < 150 NG/ML Sodium (135-145) mmol/L Potassium (3.3-5.1) mmol/L Chloride (96-108) mmol/L Carbon Dioxide (22-29) mmol/L Anion Gap (12-20) BUN (9-16) mg/dL Creatinine (0.5-1.4) mg/dL Estim Creat Clear Calc Estimated GFR Random Glucose (60-115) mg/dL Calcium (8.4-10.2) mg/dL Troponin I High Sens 2.7 (<3.5-17.0) ng/L Independent Interpretation I performed an independent interpretation of an: EKG (Sinus bradycardia at 57 beats per minute, normal intervals, no ST-T changes.) and Plain X-Ray (Chest: No acute intrathoracic pathology.) Radiology Impression Discussion of test interpretation with radiology: I have reviewed the radiologist's reading. Scores Heart Score History: -0- slightly suspicious ECG: -0- normal Age: -1- >45 - <65 Risk factory: -0- no risk factors known Troponin: -0- < or = normal limit Score: 1 Risk: 1.7% Discharge Plan Discharge Clinical Impression: Acute chest wall pain Patient Disposition: Still a Patient Instructions: Chest Wall Pain (ED) Prescriptions: No Action fluoxetine 20 mg capsule 20 mg PO QAM trazodone 100 mg tablet 100 mg PO BEDTIME ondansetron 4 mg tablet,disintegrating 4 mg PO Q8H PRN (Reason: nausea and vomiting) Qty: 10 0RF budesonide 3 mg capsule,delayed,extend.release 9 mg PO DAILY Qty: 90 2RF Referrals: [facility] [Primary Care Provider] -
[2022-12-04 12:33] VITALS: BP 109/66; PULSE 90; RESP 18; TEMP 36.7; O2SAT 99
--- NOTE | 2022-12-04 12:36 | PC.NURSE ---
Alert and oriented. arrived from home with sudden onset left chest pain that started this morning. States pain was worse but has gotten better. States some sob, denies n/v/d/ or headache. 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
[2022-12-04] MEDS: Ibuprofen 600 MG TABLET PO (12:39)
[2022-12-04 12:48] LABS: D Dimer High Sensitivity < 150 NG/ML
[2022-12-04 13:09] LABS: Troponin-I High Sensitivity 2.7 ng/L (<3.5-17.0)
[2022-12-04] MEDS: iohexoL 350 MG/ML 100 ML INFUS..BTL IV (15:51)
[2022-12-04 16:30] VITALS: BP 129/62; PULSE 49; RESP 18; TEMP 36.6; O2SAT 97
--- NOTE | 2022-12-04 17:55 | PC.NURSE ---
Discharge plan reviewed with patient who verbalized understanding
== END 2022-12-04 17:56 | disposition home or self-care (01) ==
PROVIDERS: Emergency Provider Emergency Medicine
DX: R07.89 Other chest pain (principal); M54.6 Pain in thoracic spine; Z79.899 Other long term (current) drug therapy
CPT/HCPCS: 36415; 71045; 71260; 80048; 84484; 85025; 85379; 93005; 99284; 99285; Q9967

== ENCOUNTER → 2022-12-04 09:23 | Outpatient (BNV) | payer MEDICAID, SELFPAY | PROVIDERS: Emergency Provider Emergency Medicine; Visit Provider Internal Medicine | DX: R07.9 Chest pain, unspecified (principal); R00.1 Bradycardia, unspecified | CPT/HCPCS: 93010 ==

== ENCOUNTER 2022-12-19 12:52 | Outpatient (REF) | payer MEDICAID, SELFPAY ==
[2022-12-19 17:05] LABS: TSH reflex Free T4 0.95 uIU/mL (0.32-4.0)
== END 2022-12-19 12:53 | disposition home or self-care (01) ==
LOC: HO.HHCL 12:52
PROVIDERS: Visit Provider Nurse Practitioner Primary Care
DX: R41.3 Other amnesia (principal)
CPT/HCPCS: 36415; 84443

== ENCOUNTER 2023-01-15 10:17 | Outpatient (AMB) | payer OTHER, SELFPAY ==
--- NOTE | 2023-01-15 10:33 | A.OFFVIS_ITS ---
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 Information Interpreted: non-clinical & clinical Customer Support Agent: Customer Support Agent Present (Codie) Allergies shellfish derived [SHELLFISH DERIVED] Allergy (Unknown, Verified 01/15/23 10:37) RASH, THROAT ITCHINESS Seafood Allergy (Unknown, Uncoded 01/15/23 10:37) Unknown Is last menstrual period known: No Post menopausal: Yes PFSH Surgical History (Updated 01/15/23 @ 10:38 by KAMILA Garg) Hx of gastric bypass Hx of colonoscopy History of esophagogastroduodenoscopy (EGD) Family History Mother Diabetes Breast cancer Brother Diabetes Brother Diabetes Father Colon cancer Social History Alcohol intake: never Patient Tobacco Use Status: Never used Tobacco Second Hand Smoke Exposure: No Female Reproductive History Menstrual Age of Menarche: 11 control method: none Total pregnancies: 1 Full term: 1 Number of Living Children: 1 History of abnormal pap smear: Yes Physical Exam Vital Signs: Last Vital Signs BP 120/62 01/15/23 10:34 BMI result Body Mass Index 33.5 Office Procedures Colposcopy Before the procedure was started discussed with the patient the procedure, alternatives & all the risks associated with the procedure (bleeding, infection, injury to vagina, bladder, vessels, possible need for transfusion with all its risks) then patient signed the consent Pap smear = ascus/HPV positive Speculum inserted, acetic acid used Colposcopy done Transformation zone seen, acetowhite lesions identified at 6+1 o?clock, cervical biopsies taken from 6+1 o?clock, ECC done afterwards. Vaginoscopy of the upper vagina showed no evidence of any aceto-white lesions Monsel solution used for hemostasis. The patient tolerated well . At the end the patient was instructed to call if temp>100.4, abdominal pain, n/v, bleeding; The patient was given the following instructions: nothing per vagina, no intercourse or bath tub use. All questions answered the patient verbalized understanding. Instructed the patient to make an appointment in 2 weeks for follow-up This note was generated with a voice recognition program. Some errors may have been overlooked during the review of this note. Sometimes these errors may affect the content or meaning of a given sentence. [id number] of cervix including upper vagina with biopsy and ECC Procedure code (CPT) selection complete Assessment & Plan Assessment & Plan (1) ASCUS with positive high risk HPV cervical: Code(s): R87.610 - Atypical squamous cells of undetermined significance on cytologic smear of cervix (ASC-US); R87.810 - Cervical high risk human papillomavirus (HPV) DNA test positive Orders: Orders AMB Colposcopy Today R87.610 - Atypical squamous cells of undetermined signi ficance on cytologic smear of cervix (ASC-US), R87.810 - Cervical high risk human papillomavirus (HPV) DNA test positive Coding Level of Care Code Procedure Only Diagnoses ASCUS with positive high risk HPV cervical R87.610; R87.810 CPT Codes Colposcopy - CPT: 14807-[place] of cervix including upper vagina with biopsy and ECC ([id number])
[2023-01-15 10:34] VITALS: BP 120/62; BMI 33.5
== END 2023-01-15 11:09 | disposition home or self-care (01) ==
PROVIDERS: PCP Nurse Practitioner Primary Care; Visit Provider Obstetrics & Gynecology
DX: R87.610 Atypical squamous cells of undetermined significance on cytologic smear of cervix (ASC-US) (principal); R87.810 Cervical high risk human papillomavirus (HPV) DNA test positive
CPT/HCPCS: 57454

== ENCOUNTER 2023-01-15 10:17 | Outpatient (REF) | payer OTHER, SELFPAY | END 2023-01-15 10:18 | disposition home or self-care (01) | LOC: HO.LNP 10:17 | PROVIDERS: PCP Nurse Practitioner Primary Care; Visit Provider Obstetrics & Gynecology | DX: R87.610 Atypical squamous cells of undetermined significance on cytologic smear of cervix (ASC-US) (principal); R87.810 Cervical high risk human papillomavirus (HPV) DNA test positive | CPT/HCPCS: 57454; 88305; 88342; 88360 ==

== ENCOUNTER 2023-01-22 14:04 | Outpatient (REF) | payer OTHER, SELFPAY | END 2023-01-22 14:05 | disposition home or self-care (01) | LOC: HO.MDS 14:04 | PROVIDERS: Visit Provider Internal Medicine Gastroenterology | DX: K52.9 Noninfective gastroenteritis and colitis, unspecified (principal) | CPT/HCPCS: 96365; J3380 ==

== ENCOUNTER 2023-03-19 09:58 | Outpatient (REF) | payer OTHER, SELFPAY | END 2023-03-19 09:59 | disposition home or self-care (01) | LOC: HO.MDS 09:58 | PROVIDERS: Visit Provider Internal Medicine Gastroenterology | DX: K52.9 Noninfective gastroenteritis and colitis, unspecified (principal); R87.810 Cervical high risk human papillomavirus (HPV) DNA test positive; R87.610 Atypical squamous cells of undetermined significance on cytologic smear of cervix (ASC-US) | CPT/HCPCS: 96365; 99212; J3380 ==

== ENCOUNTER 2023-03-19 15:46 | Outpatient (AMB) | payer OTHER, SELFPAY ==
[2023-03-19 15:52] VITALS: BP 118/66; BMI 33.1
--- NOTE | 2023-03-19 15:52 | A.OFFVIS_ITS ---
Intake Vital Signs 03/19/23 15:52 Height 5 ft 4 in Weight 193 lb BMI 33.1 BP 118/66 Intake Visit Reasons: Colpo Follow up Home Health Caregiver Required: No Allergies shellfish derived [SHELLFISH DERIVED] Allergy (Unknown, Verified 03/19/23 15:53) RASH, THROAT ITCHINESS Seafood Allergy (Unknown, Uncoded 03/19/23 15:53) Unknown Is last menstrual period known: No Post menopausal: Yes Patient : No HPI HPI Comments History of Present Illness Details Presenting post colpo for follow-up. The patient is doing well with no complaints. The pathology showed the following: A. Cervix, 1 o'clock, biopsy: Squamous mucosa with atrophy and reactive epithelial changes; negative for squamous intraepithelial lesion. B. Cervix, 6 o'clock, biopsy: Chronic cervicitis with atrophy and reactive epithelial changes; negative for squamous intraepithelial lesion. C. Endocervix, curettage: Mucus and fragments of benign endocervical glands; negative for a squamous intraepithelial lesion PFSH Surgical History Hx of gastric bypass Hx of colonoscopy History of esophagogastroduodenoscopy (EGD) Family History Mother Diabetes Breast cancer Brother Diabetes Brother Diabetes Father Colon cancer Social History Alcohol intake: never Patient Tobacco Use Status: Never used Tobacco Second Hand Smoke Exposure: No Patient : No Female Reproductive History Menstrual Age of Menarche: 11 Date of last pap smear: 05/24/16 (negative) Date of Mammogram: 11/29/22 Date of last Bone Density Screenin11/29/22 Review of Systems Const All systems reviewed & are unremarkable except as noted in HPI and below Reports as per HPI and Reports no additional complaints GI Reports no additional complaints Reports no additional complaints Physical Exam Vital Signs: Last Vital Signs BP 118/66 03/19/23 15:52 BMI result Body Mass Index 33.1 Assessment & Plan Assessment & Plan (1) ASCUS with positive high risk HPV cervical: Code(s): R87.610 - Atypical squamous cells of undetermined significance on cytologic smear of cervix (ASC-US); R87.810 - Cervical high risk human papillomavirus (HPV) DNA test positive Plan: Discussed with the patient the pathology results of the colposcopy biopsies & endocervical curettage ( negative). Discussed with the patient the sensitivity specificity, positive and negative predictive value in detecting cervical cancer in addition discussed the regression, persistence and progression rates. Recommended co-testing in 12 months, if cytology and or HPV are abnormal will proceed was colposcopy biopsy and endocervical curettage. Instructions given to the patient to schedule a co test appointment in 1 year. All questions answered the patient verbalized understanding. Coding Level of Care Code Est Pt Level 3 (05553) Diagnoses ASCUS with positive high risk HPV cervical R87.610; R87.810
== END 2023-03-19 16:22 ==
LOC: HO.HWS 15:47
PROVIDERS: PCP Nurse Practitioner Primary Care; Visit Provider Obstetrics & Gynecology
DX: R87.610 Atypical squamous cells of undetermined significance on cytologic smear of cervix (ASC-US) (principal); R87.810 Cervical high risk human papillomavirus (HPV) DNA test positive
CPT/HCPCS: 99213

== ENCOUNTER 2023-04-02 11:11 | Outpatient (REF) | payer OTHER, SELFPAY ==
[2023-04-02 12:28] LABS: MANUAL DIFF FLAG NO
[2023-04-02 12:46] LABS: Basophils Percent Auto 0.4 % (0-2); Eosinophils Absolute Auto 0.2 X10*3/uL (0.0-0.4); Eosinophils Percent Auto 3.8 % (0-4); Hemoglobin 13.1 g/dl (12.0-16.0); Imm Gran Abs Auto 0.01 X10*3/uL (0.00-0.03); Imm Gran Pct Auto 0.2 % (0.0-0.4); Lymphocytes Absolute Auto 1.7 X10*3/uL (1.2-4.9); Lymphocytes Percent Auto 30.9 % (20-40); Mean Corpuscular HGB Conc 32.8 g/dl (31.0-35.0); Mean Corpuscular Hemoglobin 27.4 pg (27.0-33.0); Mean Corpuscular Volume 83.7 fL (80.0-98.0); Mean Platelet Volume 9.4 fL (9.4-12.3); Monocytes Absolute Auto 0.6 X10*3/uL (0.1-1.2); Monocytes Percent Auto 10.2 % (2-11); Neutrophils Percent Auto 54.5 % (45-73); Platelet Count 260 X10*3/uL (160-400); Red Blood Count 4.78 X10*6/uL (4.20-5.50); Red Cell Distribution Width 12.7 % (11.0-16.0); White Blood Count 5.5 X10*3/uL (4.8-10.8)
[2023-04-02 13:15] LABS: Alanine Aminotransferase 22 U/L (0-31); Albumin Level 3.9 g/dL (3.5-5.0); Alkaline Phosphatase 75 U/L (39-117); Anion Gap 8 (12-20); Aspartate Amino Transferase 20 U/L (5-31); Bilirubin Total 0.3 mg/dL (0.0-1.0); Blood Urea Nitrogen 29 mg/dL (9-16); C Reactive Protein 0.12 mg/dL (< or = 0.50); Calcium 9.6 mg/dL (8.4-10.2); Carbon Dioxide 28 mmol/L (22-29); Chloride 107 mmol/L (96-108); Estimated Glomerular Filt Rate > 60; Glucose Random 148 mg/dL (60-115); Sodium 139 mmol/L (135-145); Total Protein 7.4 g/dL (6.5-8.0)
[2023-04-02 13:23] LABS: Erythrocyte Sedimentation Rate 12 MM/HR (0-20)
[2023-04-02 13:25] LABS: Rheumatoid Factor < 13.0 IU/mL (<15.0)
[2023-04-03 13:48] LABS: Cyclic Citrullinated Peptide <16 UNITS
[2023-04-05 21:54] LABS: HLA B27 Negative (Negative)
== END 2023-04-02 11:12 | disposition home or self-care (01) ==
LOC: HO.LAB 11:11
PROVIDERS: PCP Nurse Practitioner Primary Care; Visit Provider Student in an Organized Health Care Education/Training Program
DX: K52.9 Noninfective gastroenteritis and colitis, unspecified (principal); M54.50 Low back pain, unspecified; G89.29 Other chronic pain; M79.641 Pain in right hand; M79.642 Pain in left hand
CPT/HCPCS: 36415; 80053; 85025; 85652; 86140; 86200; 86431; 86812; 99202

== ENCOUNTER 2023-04-02 11:11 | Outpatient (AMB) | payer OTHER, SELFPAY ==
--- NOTE | 2023-04-02 11:20 | A.OFFVIS_ITS ---
Intake Vital Signs 04/02/23 11:21 Height 5 ft 4 in Weight 199 lb 1.239 oz BMI 34.2 BP 122/74 Blood Pressure Location Rt brachial Position Sitting Pulse 79 Pulse Source Pulse Oximeter Temp 96.8 F Temp Source Skin Pulse Oximetry (%) 95 Oxygen Delivery Method Room Air Intake Visit Reasons: OA Intake Note: New pt presents today for consult. C/o pain in multiple joints, worse in hands. 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 Required: No Accompanied by: Self / Same As Patient Allergies shellfish derived [SHELLFISH DERIVED] Allergy (Unknown, Verified 04/02/23 11:25) RASH, THROAT ITCHINESS Seafood Allergy (Unknown, Uncoded 04/02/23 11:25) Unknown Medication List - Last Reconciled 04/02/23 by Keyla Alejandra MD diclofenac sodium 1% 2 grams topical PRN fluoxetine 20 mg PO QAM ondansetron 4 mg PO Q8H PRN pantoprazole (Protonix) 40 mg PO DAILY trazodone 100 mg PO BEDTIME vedolizumab 300 mg IV Q8W HPI HPI Comments History of Present Illness Details This is a 57-year-old female who presents for evaluation of multiple joint pain. Patient states that in [place] she was diagnosed with ulcerative colitis and she was on different medicines, according to patient they were not effective. [place] diagnosis was changed into Crohn's colitis. She was evaluated by Dr. Ruiz. She was started on Entyvio back in 07/2022 you which is quite effective according to patient. She states that over the last few years she has been having pain swelling and stiffness of her fingers. Especially the right 5th finger. She takes Aleve every once in a while which provides moderate short-lived relief. She also states that she has pain in her shoulders and arms. She has low back pain after a long day at work. She mentions that about 10 years ago she had left ankle surgery after she injured her left ankle from a fall from height. She also fractured her right ankle in 3 different spots and had right ankle surgery. She also states that she had surgery on the radial aspect of her left hand. She denied any inciting trauma however. Patient is unaware of any family history of an autoimmune rheumatic disease. She denies any skin rashes. She denies any history of DVT/PE [facility] Surgical History Hx of gastric bypass Hx of colonoscopy History of esophagogastroduodenoscopy (EGD) Family History Mother Diabetes Breast cancer Brother Diabetes Brother Diabetes Father Colon cancer Social History Alcohol intake: never Patient Tobacco Use Status: Never used Tobacco Second Hand Smoke Exposure: No Female Reproductive History Menstrual Age of Menarche: 11 Total pregnancies: 1 Full term: 1 Review of Systems Const Reports weight gain Musc Reports back pain, Reports deformity, Reports arthralgias, Reports joint swelling and Reports stiffness Skin/Breast Reports alopecia Psych Reports depression Physical Exam Vital Signs: Last Vital Signs Temp 96.8 F 04/02/23 11:21 Pulse 79 04/02/23 11:21 BP 122/74 04/02/23 11:21 Pulse Ox 95 04/02/23 11:21 Oxygen Delivery Method Room Air 04/02/23 11:21 BMI result Body Mass Index 34.2 Const General: cooperative, healthy appearing and comfortable Nutritional Appearance: obese Orientation/consciousness: patient oriented x3 Limitations: no limitations HEENT Head: Yes normocephalic and Yes atraumatic Mouth: moist mucous membranes Resp Effort & Inspection: normal respiratory effort and able to speak in complete sentences Auscultation: clear to auscultation bilaterally Cardio Rate: regular rate Rhythm: regular rhythm GI Inspection: No distended Palpation (GI): Soft to palpation and nontender Skin General skin exam: no rashes or lesions noted Neuro General: patient oriented x3 Extrem Other: Arthritic changes DIP joints of both hands. Mildly tender to palpation. Most severe in the right 5th DIP Positive speed's test bilaterally Negative rotator cuff provocative maneuvers bilaterally Normal range of motion of both knees without pain Negative straight leg raise test bilaterally Negative Fabere test bilaterally No swelling, erythema, warmth of both ankles Estiven test 10-13 cm Assessment & Plan Assessment & Plan (1) Bilateral hand pain: Code(s): M79.641 - Pain in right hand; M79.642 - Pain in left hand Plan: This is a 57-year-old female with Crohn's colitis well controlled with Entyvio who presents for evaluation of diffuse joint pain. Upon evaluation has significant arthritic changes of her DIP joints of both hands. 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 Check serologies and inflammatory markers Follow-up in 4 weeks Plan I spent 45 minutes reviewing patient's chart, evaluating patient, ordering diagnostic workup, counseling patient and documenting in the chart Orders: Orders Complete Blood Count Auto Diff Today K52.9 - Noninfective gastroenteritis and colitis, unspecified Comprehensive Met. Panel Today K52.9 - Noninfective gastroenteritis and colitis, unspecified Rheumatoid Factor Today K52.9 - Noninfective gastroenteritis and colitis, unspecified HLA B27 Today G89.29 - Other chronic pain, M54.50 - Low back pain, unspecified C Reactive Protein Today K52.9 - Noninfective gastroenteritis and colitis, unspecified Erythrocyte Sedimentation Rate Today K52.9 - Noninfective gastroenteritis and colitis, unspecified Cyclic Citrullinated Peptide Today K52.9 - Noninfective gastroenteritis and colitis, unspecified Coding Level of Care Code New Pt Level 4 (72263) Diagnoses Bilateral hand pain M79.641; M79.642
[2023-04-02 11:21] VITALS: BP 122/74; PULSE 79; TEMP 36; O2SAT 95; BMI 34.2
== END 2023-04-02 12:07 | disposition home or self-care (01) ==
LOC: HO.RHE 11:11
PROVIDERS: PCP Nurse Practitioner Primary Care; Visit Provider Student in an Organized Health Care Education/Training Program
DX: M79.641 Pain in right hand (principal); M79.642 Pain in left hand
CPT/HCPCS: 99204

== ENCOUNTER 2023-04-04 09:48 | Outpatient (AMB) | payer SELFPAY ==
--- NOTE | 2023-04-04 09:49 | MHC.OFFVIS ---
Intake Vital Signs 04/04/23 09:50 04/04/23 09:54 Height 5 ft 4 in Weight 198 lb 6.656 oz BMI 34.1 BP 99/59 L 99/63 Blood Pressure Location Lt brachial Lt brachial Position Sitting Sitting Pulse 67 Intake Visit Reasons: Follow Up Intake Note: Emma presents in the office as a follow up CC: she states that she is not having any concerns today. 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 pain 4 yr prior to index visit and dx w [facility] after colonoscopy ?can't recall names of meds? used ?sx got better ?no recurrence after that she had resumption of diarrhea: c diff and h pylori were neg 06/2021 stool lactoferrin 224 CTe: 06/2021 Question sort short segment wall thickening and enhancement of the proximal small bowel shotty right lower quadrant small bowel mesentery lymphadenopathy. Postsurgical changes to the stomach. Small esophageal hernia. VCE: small bowle nml, ?colitis of the right side--looked liked granular mucosa with microabscesses and induration EGD/Colonsocopy--01/2022 Endoscopy Findings: esophagitis gastritis post surgical changes Colonoscopy Findings: colitis path: A.? Duodenum, biopsy:? Duodenal mucosa within normal limits. B.? Stomach, biopsy:? Antral-type and oxyntic mucosa with moderate chronic, focally active, inflammation; no Helicobacter organisms seen. C.? Esophagus, lower, biopsy:? Active esophagitis (maximum eosinophil count 15 per high powered field). D.? Terminal ileum, biopsy:? Terminal ileal mucosa within normal limits. E.? Colon, right, biopsy:? Chronic, moderately active, colitis.? F. ? Colon, transverse and left, biopsy:? Chronic, moderately active, colitis. G.? Rectum, biopsy:? Patchy active proctitis with crypt rupture; fully developed chronic injury not identified. COMMENT:? No dysplasia or fully-formed granulomata are identified; the findings are consistent with inflammatory bowel disease in the proper clinical context. INTERIM: she is happy with entyvio going to bath once daily, formed stool denies vomiting, no nausea appetite is good weight is stable only issue is heartburn , no dysphagia \ not taking any nsaids, no alcohol or smoking EXAM: GENERAL: The patient is well developed and nontoxic. VITAL SIGNS:see workflow HEENT: Nonicteric sclerae, PERRLA, EOMI. Oropharynx clear. Moist mucous membranes. Conjunctivae appear well perfused. No thyroid mass. CHEST: Chest wall is nontender. HEART: Regular rate and rhythm without murmurs. LUNGS: Clear to auscultation bilaterally. ABDOMEN: Soft, positive bowel sounds, nontender, no organomegaly.no flank tenderness SKIN: No rash, no excessive bruising, petechiae, or purpura. NEUROLOGIC: Cranial nerves II-XII intact without motor/sensory deficit. A/P 1/ small and l;arge bowel crohns controlled clinically with entyvio 2/ GERD, ran out of protonix PLAN: 1/ entyvio,--continue 2/ refill PPI 3/ fecal lactoferrin next visit 4/ advised to get pneumovax, flu shingles vaccines PFSH Surgical History Hx of gastric bypass Hx of colonoscopy History of esophagogastroduodenoscopy (EGD) Family History Mother Diabetes Breast cancer Brother Diabetes Brother Diabetes Father Colon cancer Social History Alcohol intake: never Patient Tobacco Use Status: Never used Tobacco Second Hand Smoke Exposure: No Female Reproductive History Menstrual Age of Menarche: 11 Physical Exam Vital Signs: Last Vital Signs Pulse 67 04/04/23 09:50 BP 99/63 04/04/23 09:54 BMI result Body Mass Index 34.1 Assessment & Plan Assessment & Plan (1) Crohn's disease, small and large intestine: Code(s): K50.80 - Crohn's disease of both small and large intestine without complications Plan: see above (2) GERD (gastroesophageal reflux disease): Code(s): K21.9 - Gastro-esophageal reflux disease without esophagitis Plan: see above Orders: Orders Lactoferrin, Fecal, Quant. Today K51.50 - Left sided colitis without complications Medications: Refilled pantoprazole (Protonix) 40 mg PO DAILY 90 tabs 2RF Coding Level of Care Code Est Pt Level 3 (85859) Diagnoses Crohn's disease, small and large intestine K50.80 GERD (gastroesophageal reflux disease) K21.9
[2023-04-04 09:50] VITALS: BP 99/59; PULSE 67; BMI 34.1
[2023-04-04 09:54] VITALS: BP 99/63
== END 2023-04-04 10:05 | disposition home or self-care (01) ==
PROVIDERS: PCP Nurse Practitioner Primary Care; Referring Provider Nurse Practitioner Primary Care; Visit Provider Internal Medicine Gastroenterology
DX: K50.80 Crohn's disease of both small and large intestine without complications (principal); K21.9 Gastro-esophageal reflux disease without esophagitis
CPT/HCPCS: 99213

== ENCOUNTER → 2023-04-04 09:48 | Outpatient (BNVA) | payer OTHER, SELFPAY | PROVIDERS: PCP Nurse Practitioner Primary Care; Visit Provider Internal Medicine Gastroenterology | DX: K50.80 Crohn's disease of both small and large intestine without complications (principal); K21.9 Gastro-esophageal reflux disease without esophagitis | CPT/HCPCS: 99212 ==

== ENCOUNTER 2023-05-02 10:02 | Outpatient (AMB) | payer OTHER, SELFPAY ==
--- NOTE | 2023-05-02 10:04 | A.OFFVIS_ITS ---
Intake Vital Signs 05/02/23 10:09 Height 5 ft 4 in Weight 203 lb 14.841 oz BMI 35.0 BP 110/60 Blood Pressure Location Lt brachial Position Sitting Pulse 65 Pulse Source Pulse Oximeter Temp 97 F Temp Source Skin Pulse Oximetry (%) 97 Oxygen Delivery Method Room Air Intake Visit Reasons: crohn's Intake Note: Pt last seen 04/02/23 presents today for follow up and test results. Reports ongoing right arm pain and neck pain. 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 Accompanied by: Self / Same As Patient Allergies shellfish derived [SHELLFISH DERIVED] Allergy (Unknown, Verified 05/02/23 10:09) RASH, THROAT ITCHINESS Seafood Allergy (Unknown, Uncoded 05/02/23 10:09) Unknown Medication List - Last Reconciled 05/02/23 by Keyla Alejandra MD diclofenac sodium 1% 2 grams topical PRN fluoxetine 20 mg PO QAM ondansetron 4 mg PO Q8H PRN pantoprazole (Protonix) 40 mg PO DAILY trazodone 100 mg PO BEDTIME vedolizumab 300 mg IV Q8W HPI HPI Comments History of Present Illness Details 57-year-old female with Crohn's colitis on interview presents for follow-up after completion of her diagnostic workup. Continues to feel about the same. Initial history: This is a 57-year-old female who presents for evaluation of multiple joint pain. Patient states that in [place] she was diagnosed with ulcerative colitis and she was on different medicines, according to patient they were not effective. [place] diagnosis was changed into Crohn's colitis. She was evaluated by Dr. Ruiz. She was started on Entyvio back in 07/2022 you which is quite effective according to patient. She states that over the last few years she has been having pain swelling and stiffness of her fingers. Especially the right 5th finger. She takes Aleve every once in a while which provides moderate short-lived relief. She also states that she has pain in her shoulders and arms. She has low back pain after a long day at work. She mentions that about 10 years ago she had left ankle surgery after she injured her left ankle from a fall from height. She also fractured her right ankle in 3 different spots and had right ankle surgery. She also states that she had surgery on the radial aspect of her left hand. She denied any inciting trauma however. Patient is unaware of any family history of an autoimmune rheumatic disease. She denies any skin rashes. She denies any history of DVT/PE PFSH Surgical History Hx of gastric bypass Hx of colonoscopy History of esophagogastroduodenoscopy (EGD) Family History Mother Diabetes Breast cancer Brother Diabetes Brother Diabetes Father Colon cancer Social History Alcohol intake: never Patient Tobacco Use Status: Never used Tobacco Second Hand Smoke Exposure: No Female Reproductive History Menstrual Age of Menarche: 11 Review of Systems Musc Reports deformity, Reports arthralgias, Reports joint swelling and Reports stiffness Physical Exam Vital Signs: Last Vital Signs Temp 97 F 05/02/23 10:09 Pulse 65 05/02/23 10:09 BP 110/60 05/02/23 10:09 Pulse Ox 97 05/02/23 10:09 Oxygen Delivery Method Room Air 05/02/23 10:09 BMI result Body Mass Index 35.0 Const General: cooperative, healthy appearing and comfortable Nutritional Appearance: obese Orientation/consciousness: patient oriented x3 Limitations: no limitations HEENT Head: Yes normocephalic and Yes atraumatic Mouth: moist mucous membranes Resp Effort & Inspection: normal respiratory effort and able to speak in complete sentences Cardio Rate: regular rate Rhythm: regular rhythm Skin General skin exam: no rashes or lesions noted Neuro General: patient oriented x3 Extrem Other: Arthritic changes DIP joints of both hands. Mildly tender to palpation. Most severe in the right 5th DIP which is erythematous Positive speed's test bilaterally Negative rotator cuff provocative maneuvers bilaterally Normal range of motion of both knees without pain Negative straight leg raise test bilaterally Negative Fabere test bilaterally No swelling, erythema, warmth of both ankles Estiven test 10-13 cm Results Reviewed Results Reviewed: Ordering Physician: SUPA MIGUEL NP Date of Service: 10/25/22 Procedure(s): XR hand RT min 3V Accession Number(s): [id number] cc: SUPA MIGUEL NP~ EXAMINATION: XR HAND, RIGHT XR HAND, LEFT XR CERVICAL SPINE CLINICAL INFORMATION: Worsening pain bilateral hands and neck, arthritis COMPARISON: Cervical spine 01/18/2021 TECHNIQUE: 3 views of the left hand, 3 views of the right hand and 4 views of the cervical spine. FINDINGS: CERVICAL SPINE: Moderate to marked loss of disc space height at C4-C5 with hypertrophic change. Mild spondylosis in the lower cervical spine. LEFT HAND: Advanced degenerative changes 1st carpometacarpal joint. Moderate degenerative changes 1st carpometacarpal joint with joint space narrowing and hypertrophic change. Mild degenerative changes in scattered interphalangeal joints with hypertrophic change most notable in the 2nd and 3rd DIP joints. RIGHT HAND: Radiopaque marker placed by the technologist to indicate the area of concern indicated by the patient adjacent to the 5th digit. Severe erosive and destructive changes at the DIP joint of the 5th digit. Maed-op-sueuonfz degenerative changes in scattered IP joints, most notable in the 2nd and 3rd DIP joints. Moderate degenerative changes 1st metacarpophalangeal joint. Severe degenerative changes 1st carpometacarpal joint with joint space narrowing and hypertrophic change. XR/XR hand RT min 3V IMPRESSION: 1. [id number] degenerative changes at C4-C5. 2. Scattered degenerative changes in bilateral hands as detailed above. 3. Severe erosive and destructive changes at the DIP joint of the right 5th digit in the area of concern indicated by the patient. Correlation with the clinical exam recommended to determine further management. Recommend follow-up imaging in 10-14 days if fracture is suspected. Assessment & Plan Assessment & Plan (1) Arthritis associated with inflammatory bowel disease: Code(s): K63.9 - Disease of intestine, unspecified; M07.60 - Enteropathic arthropathies, unspecified site Plan: This is a 57-year-old female with Crohn's colitis, well controlled with on TPO who presents for evaluation of bilateral hand pain, neck pain and bilateral shoulder pain. I reviewed her hand x-rays which show significant erosive changes in her right 5th DIP, she has bilateral positive speed's test, I also believe she has bicipital enthesopathy. Will need to start DMARDs. Start methotrexate 12.5 mg weekly for 2 weeks then 15 mg weekly. Folic acid 1 mg daily Labs before next visit in 2 months (2) Bilateral hand pain: Code(s): M79.641 - Pain in right hand; M79.642 - Pain in left hand Plan: This is a 57-year-old female with Crohn's colitis well controlled with Entyvio who presents for evaluation of diffuse joint pain. Upon evaluation has significant arthritic changes of her DIP joints of both hands. 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: Code(s): Z79.631 - prison (current) use of antimetabolite agent Plan: Monitor safety labs Plan I spent 25 minutes reviewing patient's chart, evaluating patient, ordering diagnostic workup, counseling patient and documenting in the chart Orders: Orders PT Evaluation and Treatment Today M50.30 - Other cervical disc degeneration, unspecified cervical region Medications: New methotrexate sodium Take 5 tabs once weekly for 2 weeks then 6 tabs once weekly 48 tabs 0RF folic acid 1 mg PO DAILY 90 tabs 0RF Coding Level of Care Code Est Pt Level 4 (12922) Diagnoses Arthritis associated with inflammatory bowel disease K63.9; M07.60 Bilateral hand pain M79.641; M79.642 prison 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
[2023-05-02 10:09] VITALS: BP 110/60; PULSE 65; TEMP 36.1; O2SAT 97; BMI 35.0
== END 2023-05-02 10:31 | disposition home or self-care (01) ==
PROVIDERS: PCP Nurse Practitioner Primary Care; Visit Provider Student in an Organized Health Care Education/Training Program
DX: K63.9 Disease of intestine, unspecified (principal); M07.60 Enteropathic arthropathies, unspecified site; M79.641 Pain in right hand; M79.642 Pain in left hand; Z79.631 Long term (current) use of antimetabolite agent
CPT/HCPCS: 99214

== ENCOUNTER → 2023-05-02 10:02 | Outpatient (BNVA) | payer OTHER, SELFPAY | PROVIDERS: PCP Nurse Practitioner Primary Care; Visit Provider Student in an Organized Health Care Education/Training Program | DX: M79.641 Pain in right hand (principal); M79.642 Pain in left hand; K63.9 Disease of intestine, unspecified; M07.60 Enteropathic arthropathies, unspecified site; Z79.631 Long term (current) use of antimetabolite agent | CPT/HCPCS: 99212 ==

== ENCOUNTER 2023-06-24 10:00 | Outpatient (RCR) | payer OTHER, SELFPAY ==
[2023-05-30 08:57] VITALS: BP 116/58; PULSE 63
--- NOTE | 2023-05-30 12:39 | MHC.PT.EP ---
[facility] [place] Office [place] Office [place] Office [address] Sander Villegas [address] [phone] F: [phone] F: [phone] F: [phone] F: [phone] Physical Therapy Plan of Care Date of Evaluation: 05/30/23 Date of Surgery: Diagnosis: CERVICAL DISC DEGENERATION Assessment: 57 YO FEMALE REF TO PT W CERVICAL PAIN AND 3 MONTHS OF INCR Rt SH PAIN (EXACERBATED IN A FALL). 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 . SHE IS RIGHT HAND DOMINANT. OBJECTIVE: LIMITED CERV AROM, (+) SOFT TISSUE IRRITABILITY, (+) RADICULAR SXS INTO LEFT UE-> HAND, DECR POSTURAL AWARENESS, FLUCTUATING PAIN IN CERV PS/ UT. FUNCTIONAL LIMITATIONS INCLUDE DIFFIC SLEEPING, W PROLONGED SITTING, LIFTING AND CARRYING OBJECTS, AND SOME SXS W JOB DUTIES WHILE WORKING 10 HR SHIFTS. Pt IS A VERY GOOD PT CANDIDATE TO GUIDE HER IN ADDRESSING THE ABOVE FINDINGS, PAIN MGMT, DEV A PROGRESSIVE HEP AND SELF-SX MGMT STRATEGIES/ MAXIMIZING FUNCTIONAL INDEPENDENCE. Frequency and Duration: The patient will be seen 2 x WK x 5 WKS Short Term Goals: *DECR Rt SH AND ALBER CERV PAIN TO 2-3/10 *Pt INDEP W SELF CORRECT POSTURE TO REDUCE STRESS TO CERV REGION W REG ADLs/ WORK *IMPROVE AROM Rt SH AND CERV REGION Senior Care Goals: *INDEP HEP AND SELF-SX MANAGEMENT TECHN *Pt GRAD INCREASE ADLs W/O EXACERB CERV/ Rt SH SXS EVIDENT W IMPROVED NPDI (AT EVAL 850) *IMPROVED UEs STRENGTH BY 1 GRADE Treatment Plan: Modalities to reduce pain, spasms and effusion. Manual therapy to restore motion and function. Therapeutic exercise to improve strength and flexibility. Neuromuscular re-education for posture and balance. Therapeutic activities to return to functional activities of daily living. Electronically signed by: ROHIT HAQUE,PT Please sign and return to therapist. Thank you for your referral.
--- NOTE | 2023-07-08 08:18 | MHC.PT.DC ---
[facility] [place] Office [place] Office [place] Office [address] Sander Villegas [address] [facility] [phone] F: [phone] F: [phone] F: [phone] F: [phone] Physical Therapy Discharge Report Diagnosis: CERVICAL DISC DEGENERATION Date of Surgery: Date of Evaluation: 05/30/23 Date of Discharge: 07/08/23 Treatments to Date: 6 Cancellations to Date: 4 No Shows to Date: 0 Discharge Status: Achieved Goals Improved Function Independent with HEP Discharge Summary: IRMA PROGRESSED NICELY IN PT-> SHE MET HER PT GOALS AT THIS TIME AND IS INDEP W HER HEP-= HER PAIN IS RELATIVELY RESOLVED , SHE HAS IMPROVED CERV AROM, AND IS INDEP W SELF=POSTURAL CORRECTION. SHE HAS RESUMED REG ADLs WITHOUT EXACERBATING SXS. Electronically signed by: ROHIT HAQUE,PT Please sign and return to therapist. Thank you for your referral.
== END 2023-07-08 08:19 | disposition home or self-care (01) ==
LOC: HO.PT 10:00
PROVIDERS: PCP Nurse Practitioner Primary Care; Visit Provider Student in an Organized Health Care Education/Training Program
DX: M50.30 Other cervical disc degeneration, unspecified cervical region (principal)
CPT/HCPCS: 97110; 97140; 97162; 97530

== ENCOUNTER 2023-06-24 11:57 | Outpatient (REF) | payer OTHER, SELFPAY | END 2023-06-24 11:58 | disposition home or self-care (01) | LOC: HO.MDS 11:57 | PROVIDERS: Visit Provider Internal Medicine Gastroenterology | DX: K52.9 Noninfective gastroenteritis and colitis, unspecified (principal) | CPT/HCPCS: 96365; J3380 ==

== ENCOUNTER 2023-07-17 09:51 | Outpatient (REF) | payer OTHER, SELFPAY ==
[2023-07-17 11:32] LABS: MANUAL DIFF FLAG NO
[2023-07-17 11:45] LABS: Basophils Percent Auto 0.6 % (0-2); Eosinophils Absolute Auto 0.6 X10*3/uL (0.0-0.4); Eosinophils Percent Auto 9.5 % (0-4); Hematocrit 39.4 % (37.0-47.0); Hemoglobin 13.3 g/dl (12.0-16.0); Imm Gran Abs Auto 0.03 X10*3/uL (0.00-0.03); Imm Gran Pct Auto 0.5 % (0.0-0.4); Lymphocytes Percent Auto 31.5 % (20-40); Mean Corpuscular HGB Conc 33.8 g/dl (31.0-35.0); Mean Corpuscular Hemoglobin 28.2 pg (27.0-33.0); Mean Corpuscular Volume 83.5 fL (80.0-98.0); Mean Platelet Volume 9.6 fL (9.4-12.3); Monocytes Absolute Auto 0.5 X10*3/uL (0.1-1.2); Neutrophils Absolute Auto 3.3 x10*3/uL (2.0-8.3); Neutrophils Percent Auto 50.9 % (45-73); Platelet Count 251 X10*3/uL (160-400); Red Blood Count 4.72 X10*6/uL (4.20-5.50); Red Cell Distribution Width 13.2 % (11.0-16.0); White Blood Count 6.4 X10*3/uL (4.8-10.8)
[2023-07-17 12:10] LABS: C Reactive Protein 0.77 mg/dL (< or = 0.50)
[2023-07-17 12:49] LABS: TSH reflex Free T4 0.99 uIU/mL (0.32-4.0)
== END 2023-07-17 09:52 | disposition home or self-care (01) ==
LOC: HO.HHCL 09:51
PROVIDERS: Family Medicine; Visit Provider Student in an Organized Health Care Education/Training Program
DX: R11.0 Nausea (principal); R53.83 Other fatigue; Z79.631 Long term (current) use of antimetabolite agent
CPT/HCPCS: 36415; 84443; 85025; 86140

== ENCOUNTER 2023-08-02 07:33 | Outpatient (REF) | payer OTHER, SELFPAY ==
[2023-08-02 08:13] LABS: MANUAL DIFF FLAG NO
[2023-08-02 08:41] LABS: Basophils Percent Auto 0.7 % (0-2); Eosinophils Absolute Auto 0.6 X10*3/uL (0.0-0.4); Eosinophils Percent Auto 10.4 % (0-4); Hematocrit 39.9 % (37.0-47.0); Hemoglobin 13.3 g/dl (12.0-16.0); Imm Gran Abs Auto 0.01 X10*3/uL (0.00-0.03); Imm Gran Pct Auto 0.2 % (0.0-0.4); Lymphocytes Absolute Auto 1.7 X10*3/uL (1.2-4.9); Lymphocytes Percent Auto 28.3 % (20-40); Mean Corpuscular HGB Conc 33.3 g/dl (31.0-35.0); Mean Corpuscular Hemoglobin 28.4 pg (27.0-33.0); Mean Corpuscular Volume 85.3 fL (80.0-98.0); Mean Platelet Volume 9.1 fL (9.4-12.3); Monocytes Absolute Auto 0.5 X10*3/uL (0.1-1.2); Monocytes Percent Auto 7.9 % (2-11); Neutrophils Absolute Auto 3.2 x10*3/uL (2.0-8.3); Neutrophils Percent Auto 52.5 % (45-73); Platelet Count 277 X10*3/uL (160-400); Red Blood Count 4.68 X10*6/uL (4.20-5.50); Red Cell Distribution Width 13.4 % (11.0-16.0)
[2023-08-02 09:20] LABS: Alanine Aminotransferase 28 U/L (0-31); Albumin Level 3.9 g/dL (3.5-5.0); Alkaline Phosphatase 92 U/L (39-117); Anion Gap 10 (12-20); Aspartate Amino Transferase 27 U/L (5-31); Bilirubin Total 0.3 mg/dL (0.0-1.0); Blood Urea Nitrogen 17 mg/dL (9-16); Calcium 9.2 mg/dL (8.4-10.2); Carbon Dioxide 25 mmol/L (22-29); Chloride 108 mmol/L (96-108); Estimated Glomerular Filt Rate > 60; Glucose Random 141 mg/dL (60-115); Potassium 4.2 mmol/L (3.3-5.1); Sodium 139 mmol/L (135-145)
[2023-08-02 09:28] LABS: Erythrocyte Sedimentation Rate 12 MM/HR (0-20)
== END 2023-08-02 07:34 | disposition home or self-care (01) ==
LOC: HO.LAB 07:33
PROVIDERS: Visit Provider Student in an Organized Health Care Education/Training Program
DX: Z79.631 Long term (current) use of antimetabolite agent (principal)
CPT/HCPCS: 36415; 80053; 85025; 85652

== ENCOUNTER 2023-08-04 09:35 | Outpatient (AMB) | payer OTHER, SELFPAY ==
--- NOTE | 2023-08-04 09:45 | MHC.OFFVIS ---
Intake Vital Signs 08/04/23 09:48 Height 5 ft 4 in Weight 194 lb 14.218 oz BMI 33.4 BP 118/62 Blood Pressure Location Rt brachial Position Sitting Pulse 64 Pulse Source Pulse Oximeter Pulse Oximetry (%) 95 Oxygen Delivery Method Room Air Intake Visit Reasons: crohn's arthritis/CM Intake Note: Patient last seen 05/02/23 presents today for follow up and test results. 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 Trainer Required: No Accompanied by: Self / Same As Patient Allergies shellfish derived [SHELLFISH DERIVED] Allergy (Unknown, Verified 08/04/23 09:52) RASH, THROAT ITCHINESS Seafood Allergy (Unknown, Uncoded 08/04/23 09:52) Unknown Medication List - Last Reconciled 08/04/23 by Keyla Alejandra MD diclofenac sodium 1% 2 grams topical PRN fluoxetine 20 mg PO QAM folic acid 1 mg PO DAILY methotrexate sodium Take 5 tabs once weekly for 2 weeks then 6 tabs once weekly ondansetron 4 mg PO Q8H PRN pantoprazole (Protonix) 40 mg PO DAILY trazodone 100 mg PO BEDTIME vedolizumab 300 mg IV Q8W HPI HPI Comments History of Present Illness Details 57-year-old female with Crohn's related inflammatory arthritis returns for follow-up. She has been taking methotrexate regularly for about 3 months now. She feels significant improvement. Neck and shoulder pain have improved. Pain in her fingers have improved. She also did complete physical therapy course for her shoulder. She feels like she is having mild flare-up of her Crohn's, she is having stomach upset. Initial history: This is a 57-year-old female who presents for evaluation of multiple joint pain. Patient states that in [place] she was diagnosed with ulcerative colitis and she was on different medicines, according to patient they were not effective. [place] diagnosis was changed into Crohn's colitis. She was evaluated by Dr. Ruiz. She was started on Entyvio back in 07/2022 you which is quite effective according to patient. She states that over the last few years she has been having pain swelling and stiffness of her fingers. Especially the right 5th finger. She takes Aleve every once in a while which provides moderate short-lived relief. She also states that she has pain in her shoulders and arms. She has low back pain after a long day at work. She mentions that about 10 years ago she had left ankle surgery after she injured her left ankle from a fall from height. She also fractured her right ankle in 3 different spots and had right ankle surgery. She also states that she had surgery on the radial aspect of her left hand. She denied any inciting trauma however. Patient is unaware of any family history of an autoimmune rheumatic disease. She denies any skin rashes. She denies any history of DVT/PE PFSH Surgical History Hx of gastric bypass Hx of colonoscopy History of esophagogastroduodenoscopy (EGD) Family History Mother Diabetes Breast cancer Brother Diabetes Brother Diabetes Father Colon cancer Social History Alcohol intake: never Patient Tobacco Use Status: Never used Tobacco Second Hand Smoke Exposure: No Female Reproductive History Menstrual Age of Menarche: 11 Review of Systems Musc Denies arthralgias, Denies joint swelling and Denies stiffness Physical Exam Vital Signs: Last Vital Signs Pulse 64 08/04/23 09:48 BP 118/62 08/04/23 09:48 Pulse Ox 95 08/04/23 09:48 Oxygen Delivery Method Room Air 08/04/23 09:48 BMI result Body Mass Index 33.4 Const General: cooperative, healthy appearing and comfortable Nutritional Appearance: obese Orientation/consciousness: patient oriented x3 Limitations: no limitations HEENT Head: Yes normocephalic and Yes atraumatic Mouth: moist mucous membranes Resp Effort & Inspection: normal respiratory effort and able to speak in complete sentences Cardio Rate: regular rate Rhythm: regular rhythm Skin General skin exam: no rashes or lesions noted Neuro General: patient oriented x3 Extrem Other: Arthritic changes DIP joints of both hands. There was mild erythema and swelling of right 5th DIP last visit. This has resolved today. Is no longer tender Negative speed's test bilaterally Negative rotator cuff provocative maneuvers bilaterally Normal range of motion of both knees without pain Negative straight leg raise test bilaterally Negative Fabere test bilaterally No swelling, erythema, warmth of both ankles Results Reviewed Results Reviewed: Ordering Physician: SUPA MIGUEL NP Date of Service: 10/25/22 Procedure(s): XR hand RT min 3V Accession Number(s): [id number] cc: SUPA MIGUEL NP~ EXAMINATION: XR HAND, RIGHT XR HAND, LEFT XR CERVICAL SPINE CLINICAL INFORMATION: Worsening pain bilateral hands and neck, arthritis COMPARISON: Cervical spine 01/18/2021 TECHNIQUE: 3 views of the left hand, 3 views of the right hand and 4 views of the cervical spine. FINDINGS: CERVICAL SPINE: Moderate to marked loss of disc space height at C4-C5 with hypertrophic change. Mild spondylosis in the lower cervical spine. LEFT HAND: Advanced degenerative changes 1st carpometacarpal joint. Moderate degenerative changes 1st carpometacarpal joint with joint space narrowing and hypertrophic change. Mild degenerative changes in scattered interphalangeal joints with hypertrophic change most notable in the 2nd and 3rd DIP joints. RIGHT HAND: Radiopaque marker placed by the technologist to indicate the area of concern indicated by the patient adjacent to the 5th digit. Severe erosive and destructive changes at the DIP joint of the 5th digit. [id number] degenerative changes in scattered IP joints, most notable in the 2nd and 3rd DIP joints. Moderate degenerative changes 1st metacarpophalangeal joint. Severe degenerative changes 1st carpometacarpal joint with joint space narrowing and hypertrophic change. XR/XR hand RT min 3V IMPRESSION: 1. Vehbkozr-fs-bfjrny degenerative changes at C4-C5. 2. Scattered degenerative changes in bilateral hands as detailed above. 3. Severe erosive and destructive changes at the DIP joint of the right 5th digit in the area of concern indicated by the patient. Correlation with the clinical exam recommended to determine further management. Recommend follow-up imaging in 10-14 days if fracture is suspected. Assessment & Plan Assessment & Plan (1) Arthritis associated with inflammatory bowel disease: Comment: dx 04/2023 erosive changes DIP is, bilateral bicipital tendinopathy MTX 04/2023 effective Code(s): K63.9 - Disease of intestine, unspecified; M07.60 - Enteropathic arthropathies, unspecified site Plan: This is a 57-year-old female with Crohn's related inflammatory arthritis who presents for follow-up. She has been on methotrexate regularly for about 3 months now with improvement. Synovitis significantly improved. 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 Panel 3 Months Z79.631 - long term care social worker (current) use of antimetabolite agent C Reactive Protein 3 Months Z79.631 - senior care (current) use of antimetabolite agent Erythrocyte Sedimentation Rate 3 Months Z79.631 - long term care social worker (current) use of antimetabolite agent Medications: Changed From methotrexate sodium Take 5 tabs once weekly for 2 weeks then 6 tabs once weekly 48 tabs 0RF To methotrexate sodium 15 mg (6 x 2.5 mg) PO QWEEK 96 tabs 0RF Refilled folic acid 1 mg PO DAILY 90 tabs 1RF Coding Level of Care Code Est Pt Level 4 (52121) Diagnoses Arthritis associated with inflammatory bowel disease K63.9; M07.60 senior care 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
[2023-08-04 09:48] VITALS: BP 118/62; PULSE 64; O2SAT 95; BMI 33.4
== END 2023-08-04 10:04 | disposition home or self-care (01) ==
PROVIDERS: PCP Nurse Practitioner Primary Care; Visit Provider Student in an Organized Health Care Education/Training Program
DX: K63.9 Disease of intestine, unspecified (principal); M07.60 Enteropathic arthropathies, unspecified site; Z79.631 Long term (current) use of antimetabolite agent
CPT/HCPCS: 99214

== ENCOUNTER → 2023-08-04 09:35 | Outpatient (BNVA) | payer OTHER, SELFPAY | PROVIDERS: PCP Nurse Practitioner Primary Care; Visit Provider Student in an Organized Health Care Education/Training Program | DX: K50.90 Crohn's disease, unspecified, without complications (principal); M07.60 Enteropathic arthropathies, unspecified site; Z79.631 Long term (current) use of antimetabolite agent | CPT/HCPCS: 99212 ==

== ENCOUNTER 2023-08-29 08:52 | Outpatient (AMB) | payer OTHER, SELFPAY ==
--- NOTE | 2023-08-29 08:56 | MHC.OFFVIS ---
Vital Signs 08/29/23 09:01 Height 5 ft 4 in Weight 191 lb 12.835 oz BMI 32.9 BP 124/60 Blood Pressure Location Lt brachial Position Sitting Pulse 67 Intake Visit Reasons: 4 month follow up Intake Note: Emma presents in the office as a 4 month follow up. CC: She states she is having concerns - at night she wakes up with phleg like feeling in ehr throat and sometimes thick liquid will come up in her sleep. Allergies shellfish derived [SHELLFISH DERIVED] Allergy (Unknown, Verified 08/29/23 09:02) RASH, THROAT ITCHINESS Seafood Allergy (Unknown, Uncoded 08/29/23 09:02) Unknown HPI HPI 4 month follow up: Details: 57 yr old f here for f/u for crohns disease RECAP: LAst seen 2018 She had diarrhea and pain 4 yr prior to index visit and dx w [facility] after colonoscopy can't recall names of meds used sx got better no recurrence after that she had resumption of diarrhea: c diff and h pylori were neg 06/2021 stool lactoferrin 224 CTe: 06/2021 Question sort short segment wall thickening and enhancement of the proximal small bowel shotty right lower quadrant small bowel mesentery lymphadenopathy. Postsurgical changes to the stomach. Small esophageal hernia. VCE: small bowle nml, ?colitis of the right side--looked liked granular mucosa with microabscesses and induration EGD/Colonsocopy--01/2022 Endoscopy Findings: esophagitis gastritis post surgical changes Colonoscopy Findings: colitis path: A. Duodenum, biopsy: Duodenal mucosa within normal limits. B. Stomach, biopsy: Antral-type and oxyntic mucosa with moderate chronic, focally active, inflammation; no Helicobacter organisms seen. C. Esophagus, lower, biopsy: Active esophagitis (maximum eosinophil count 15 per high powered field). D. Terminal ileum, biopsy: Terminal ileal mucosa within normal limits. E. Colon, right, biopsy: Chronic, moderately active, colitis. F. Colon, transverse and left, biopsy: Chronic, moderately active, colitis. G. Rectum, biopsy: Patchy active proctitis with crypt rupture; fully developed chronic injury not identified. COMMENT: No dysplasia or fully-formed granulomata are identified; the findings are consistent with inflammatory bowel disease in the proper clinical context. INTERIM: she has noted more coughing a night, she has thick mucous she has mild heartburn, occ severe she still takes protonix and not helping she had 3 wk flare last month, she had nausea, poor appetite, diarrhea--resolved now stools now nml, no blood or mucous EXAM: GENERAL: The patient is well developed and nontoxic. VITAL SIGNS:see workflow HEENT: Nonicteric sclerae, PERRLA, EOMI. Oropharynx clear. Moist mucous membranes. Conjunctivae appear well perfused. No thyroid mass. CHEST: Chest wall is nontender. HEART: Regular rate and rhythm without murmurs. LUNGS: Clear to auscultation bilaterally. ABDOMEN: Soft, positive bowel sounds, nontender, no organomegaly.no flank tenderness SKIN: No rash, no excessive bruising, petechiae, or purpura. NEUROLOGIC: Cranial nerves II-XII intact without motor/sensory deficit. A/P 1/ small and l;arge bowel crohns was controlled clinically with entyvio, unsure if losing effect vs infectious flare up --lactoferrin was recently elevated 2/ GERD, possibly break thru ddx: post nasal drip, asthma, brocnhtiis PLAN: 1/ entyvio,--continue, maybe check levels at some point 2/ change PPI to lansoprazole 3/ CT enterogram 4/ EGD for GERD and colonoscopy for colitis, suprep sent [facility] Surgical History Hx of gastric bypass Hx of colonoscopy History of esophagogastroduodenoscopy (EGD) Family History Mother Diabetes Breast cancer Brother Diabetes Brother Diabetes Father Colon cancer Social History Alcohol intake: never Patient Tobacco Use Status: Never used Tobacco Second Hand Smoke Exposure: No Female Reproductive History Menstrual Age of Menarche: 11 Physical Exam Vital Signs: Last Vital Signs Pulse 67 08/29/23 09:01 BP 124/60 08/29/23 09:01 BMI result Body Mass Index 32.9 Assessment & Plan Assessment & Plan (1) GERD (gastroesophageal reflux disease): Code(s): K21.9 - Gastro-esophageal reflux disease without esophagitis Category: Medical Plan: see above (2) Crohn's disease, small and large intestine: Code(s): K50.80 - Crohn's disease of both small and large intestine without complications Category: Medical Plan: see above Orders: Orders CT enterography Today R10.33 - Periumbilical pain Medications: New lansoprazole 30 mg PO DAILY 30 caps 2RF sodium,potassium,mag sulfates 17.5-3.13-1.6 gram (Suprep Bowel Prep Kit) DILUTE; drink 1/2 at 6-8 pm and half at 11 PM- 1AM 354 mL 0RF Discontinued pantoprazole (Protonix) Discontinued Reason: Doctor's Order 40 mg PO DAILY 90 tabs 2RF Coding Level of Care Code Est Pt Level 4 (08865) Diagnoses GERD (gastroesophageal reflux disease) K21.9 Crohn's disease, small and large intestine K50.80
[2023-08-29 09:01] VITALS: BP 124/60; PULSE 67; BMI 32.9
== END 2023-08-29 09:52 | disposition home or self-care (01) ==
PROVIDERS: PCP Nurse Practitioner Primary Care; Visit Provider Internal Medicine Gastroenterology
DX: K21.9 Gastro-esophageal reflux disease without esophagitis (principal); K50.80 Crohn's disease of both small and large intestine without complications
CPT/HCPCS: 99214

== ENCOUNTER → 2023-08-29 08:52 | Outpatient (BNVA) | payer OTHER, SELFPAY | PROVIDERS: PCP Nurse Practitioner Primary Care; Visit Provider Internal Medicine Gastroenterology | DX: K50.80 Crohn's disease of both small and large intestine without complications (principal); K21.9 Gastro-esophageal reflux disease without esophagitis | CPT/HCPCS: 99212 ==

== ENCOUNTER 2023-10-29 09:20 | Outpatient (REF) | payer OTHER, SELFPAY ==
--- NOTE | ~2023-10-29 | CT_ITS ---
EXAMINATION: CT ENTEROGRAPHY ABDOMEN AND PELVIS WITH CONTRAST CLINICAL INFORMATION: Periumbilical pain COMPARISON: 06/14/2021 TECHNIQUE: Study performed with oral (1350 mL) and 480 mL of water to distend the abdomen. The patient was injected with 85 mL Omnipaque 350 intravenous contrast which was administered without adverse effect. Coronal and sagittal reformatted images were obtained at the technologist's workstation. This CT examination was performed using dose optimization techniques as appropriate, variously including the following: *Automated exposure control *Adjustment of mA and/or kV according to patient size (this includes techniques or standardized protocols for targeted exams where dose is matched to indication/reason for exam; i.e. extremities or head) *Use of iterative reconstruction technique DLP: 516 mGy-cm FINDINGS: GASTROINTESTINAL FINDINGS: Stomach: Postsurgical changes related to gastric sleeve procedure. Small intestine: Satisfactorily distended and normal in appearance. Large intestine: Well-distended and normal in appearance. No perirectal changes demonstrated. The appendix is normal. Mild fatty infiltration of the ileocecal valve. Additional findings: No abnormal enhancement of the vasa recta or significant mesenteric or retroperitoneal lymphadenopathy is seen. No abdominal abscess or fistulous tract demonstrated. ABDOMINAL AND PELVIC CT FINDINGS: Liver, gallbladder, biliary tract: Unremarkable. Pancreas: Unremarkable. Spleen: Unremarkable. Adrenal glands and kidneys: Unremarkable Ureters and bladder: Unremarkable Lymphovascular structures: Unremarkable Bones/soft tissues: Degenerative changes. Ventral fat-containing umbilical hernia. Lung bases: Right lung base linear atelectasis versus scarring. CT/CT enterography IMPRESSION: * No acute intra-abdominal abnormality. * Postsurgical changes related to gastric sleeve procedure. * Mild fatty infiltration of the ileocecal valve.
[2023-10-29 09:43] LABS: MANUAL DIFF FLAG NO
[2023-10-29 09:58] LABS: Basophils Percent Auto 0.8 % (0-2); Eosinophils Absolute Auto 0.3 X10*3/uL (0.0-0.4); Eosinophils Percent Auto 6.1 % (0-4); Hematocrit 37.5 % (37.0-47.0); Hemoglobin 12.1 g/dl (12.0-16.0); Imm Gran Abs Auto 0.03 X10*3/uL (0.00-0.03); Imm Gran Pct Auto 0.6 % (0.0-0.4); Lymphocytes Absolute Auto 1.6 X10*3/uL (1.2-4.9); Lymphocytes Percent Auto 29.8 % (20-40); Mean Corpuscular HGB Conc 32.3 g/dl (31.0-35.0); Mean Corpuscular Hemoglobin 26.9 pg (27.0-33.0); Mean Corpuscular Volume 83.5 fL (80.0-98.0); Mean Platelet Volume 9.3 fL (9.4-12.3); Monocytes Absolute Auto 0.4 X10*3/uL (0.1-1.2); Monocytes Percent Auto 7.3 % (2-11); Neutrophils Absolute Auto 2.9 x10*3/uL (2.0-8.3); Neutrophils Percent Auto 55.4 % (45-73); Platelet Count 279 X10*3/uL (160-400); Red Blood Count 4.49 X10*6/uL (4.20-5.50); Red Cell Distribution Width 12.8 % (11.0-16.0); White Blood Count 5.2 X10*3/uL (4.8-10.8)
[2023-10-29 10:19] LABS: Blood Urea Nitrogen 23 mg/dL (9-16); C Reactive Protein 0.24 mg/dL (< or = 0.50); Estimated Glomerular Filt Rate > 60
[2023-10-29 10:31] LABS: Erythrocyte Sedimentation Rate 27 MM/HR (0-20)
[2023-10-29] MEDS: iohexoL 350 MG/ML 100 ML INFUS..BTL 85 ML IV (10:57)
[2023-10-29] MEDS: Sorbitol/Mannit/Xanth Imaging 500 ML LIQUID 1500 ML PO (10:58)
== END 2023-10-29 09:21 | disposition home or self-care (01) ==
LOC: HO.CT 09:20
PROVIDERS: Student in an Organized Health Care Education/Training Program; PCP Nurse Practitioner Primary Care; Visit Provider Internal Medicine Gastroenterology
DX: R10.33 Periumbilical pain (principal); K50.80 Crohn's disease of both small and large intestine without complications; Z79.631 Long term (current) use of antimetabolite agent
CPT/HCPCS: 36415; 74177; 82565; 84520; 85025; 85652; 86140; Q9967

== ENCOUNTER 2023-12-26 09:49 | Outpatient (REF) | payer OTHER, SELFPAY ==
--- NOTE | ~2023-12-26 | MM_ITS ---
EXAMINATION: MM SCREENING DIGITAL BREAST TOMOSYNTHESIS, BILATERAL CLINICAL INFORMATION: Screening. Asymptomatic. COMPARISON: Mammography: This study is compared with prior exams dating back to 2021. TECHNIQUE: Digital breast tomosynthesis is performed in both the craniocaudal and mediolateral oblique views along with computer-aided detection (CAD). Synthesized 2D images are generated from the tomosynthesis. FINDINGS: There are scattered areas of fibroglandular density (ACR BI-RADS breast composition Category b). There are no significant masses, abnormal calcifications, or other abnormalities. MM/MM tomosynthesis screening BI IMPRESSION: No mammographic evidence of malignancy. ASSESSMENT: BI-RADS BI-RADS 1 - Negative RECOMMENDATION: Routine annual mammography screening. 1 year F/U This examination should not preclude the clinical evaluation of a suspicious palpable abnormality. This patient's information was entered into a reminder system with a target due date for their next mammogram. Electronically signed by: Elda Butler MD 01/22/2024 10:22 PM EDT
== END 2023-12-26 09:50 | disposition home or self-care (01) ==
LOC: HO.MAMMO 09:49
PROVIDERS: PCP Nurse Practitioner Primary Care; Visit Provider Nurse Practitioner Primary Care
DX: Z12.31 Encounter for screening mammogram for malignant neoplasm of breast (principal)
CPT/HCPCS: 77063; 77067

== ENCOUNTER → 2023-12-26 10:30 | Outpatient (BNV) | payer OTHER, SELFPAY | PROVIDERS: PCP Nurse Practitioner Primary Care; Visit Provider Radiology Diagnostic Radiology | DX: Z12.31 Encounter for screening mammogram for malignant neoplasm of breast (principal) | CPT/HCPCS: 77063; 77067 ==

== ENCOUNTER 2024-03-24 09:31 | Outpatient (AMB) | payer OTHER, SELFPAY ==
--- NOTE | 2024-03-24 09:35 | MHC.OFFVIS ---
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 No complaints. Last Pap/HPV was in 12/25 ascus/HPV positive, followed by colpo/biopsy/ECC which was negative Last Mammogram was BI-RADS 1 in 12/26 No previous screening Colonoscopy PFSH Medical History (Updated 03/24/24 @ 09:50 by Robert Lind MD) ASCUS with positive high risk HPV cervical Crohn's disease GERD (gastroesophageal reflux disease) Surgical History Hx of gastric bypass Hx of colonoscopy History of esophagogastroduodenoscopy (EGD) Family History Mother Diabetes Breast cancer Brother Diabetes Brother Diabetes Father Colon cancer Social History Alcohol intake: never Patient Tobacco Use Status: Never used Tobacco Second Hand Smoke Exposure: No Female Reproductive History Menstrual Age of Menarche: 11 Physical Exam Vital Signs: Last Vital Signs BP 116/74 03/24/24 09:37 Assessment & Plan Assessment & Plan (1) Well woman exam: Code(s): Z01.419 - Encounter for gynecological examination (general) (routine) without abnormal findings Category: Medical Plan: Co testing done. Counseled the patient about the recommended dietary allowance of 1200 mg of Calcium & 600 IU of vitamin D. Instructions given the patient to schedule next screening Mammogram in 12/27. The patient was referred to GI for screening colonoscopy . The patient was instructed to perform monthly self-breast exams and schedule annual exam in a year. All questions answered and the patient verbalized understanding. Orders: Referrals Gastroenterology Referral Z12.11 - Encounter for screening for malignant neoplasm of colon Coding Level of Care Code Est Pt Prev Care 40-64y(89427) Diagnoses Well woman exam Z01.419
[2024-03-24 09:37] VITALS: BP 116/74
== END 2024-03-24 10:02 | disposition home or self-care (01) ==
PROVIDERS: PCP Nurse Practitioner Primary Care; Visit Provider Obstetrics & Gynecology
DX: Z01.419 Encounter for gynecological examination (general) (routine) without abnormal findings (principal)
CPT/HCPCS: 99396

== ENCOUNTER 2024-03-24 09:31 | Outpatient (REF) | payer OTHER, SELFPAY ==
[2024-03-25 10:02] LABS: HPV 16,18/45 See PAP report
== END 2024-03-24 09:32 | disposition home or self-care (01) ==
LOC: HO.LNP 09:31
PROVIDERS: PCP Nurse Practitioner Primary Care; Visit Provider Obstetrics & Gynecology
DX: Z01.419 Encounter for gynecological examination (general) (routine) without abnormal findings (principal); R87.610 Atypical squamous cells of undetermined significance on cytologic smear of cervix (ASC-US); Z87.42 Personal history of other diseases of the female genital tract
CPT/HCPCS: 87624; 88175; 99396

== ENCOUNTER 2024-04-06 14:51 | Outpatient (REF) | payer OTHER, SELFPAY | END 2024-04-06 14:52 | disposition home or self-care (01) | LOC: HO.LNP 14:51 | PROVIDERS: PCP Nurse Practitioner Primary Care; Visit Provider Obstetrics & Gynecology | DX: R87.610 Atypical squamous cells of undetermined significance on cytologic smear of cervix (ASC-US) (principal) | CPT/HCPCS: 57454; 88305; 88342; 88360 ==

== ENCOUNTER 2024-04-06 14:51 | Outpatient (AMB) | payer OTHER, SELFPAY ==
--- NOTE | 2024-04-06 14:55 | MHC.OFFVIS ---
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 Last year patient has ascus HPV positive, colpo biopsy ECC was negative. [facility] Medical History ASCUS with positive high risk HPV cervical Crohn's disease GERD (gastroesophageal reflux disease) Surgical History Hx of gastric bypass Hx of colonoscopy History of esophagogastroduodenoscopy (EGD) Family History Mother Diabetes Breast cancer Brother Diabetes Brother Diabetes Father Colon cancer Social History Alcohol intake: never Patient Tobacco Use Status: Never used Tobacco Second Hand Smoke Exposure: No Female Reproductive History Menstrual Age of Menarche: 11 Review of Systems Const All systems reviewed & are unremarkable except as noted in HPI and below Reports as per HPI and Reports no additional complaints GI Reports no additional complaints Reports no additional complaints Physical Exam Vital Signs: Last Vital Signs BP 110/70 04/06/24 15:02 Office Procedures Colposcopy Colposcopy: Pre-Procedure Counseling: Before beginning the procedure, I conducted comprehensive counseling with the patient. We thoroughly discussed the procedure itself, including its details, alternatives, and all associated risks. This included but not limited to the following complications such as bleeding, infection, and injury to the vagina, bladder, and vessels, as well as the potential need for transfusion with all its associated risks. Subsequently, the patient sign the consent. Pap smear result: Ascus/HPV negative Procedure: During the procedure, the following steps were performed: A speculum was inserted, and acetic acid was applied. Colposcopy was conducted, allowing visualization of the transformation zone. Acetowhite lesions were identified at the 5+7+1 o'clock position. Cervical biopsies were obtained from the 5+7+1 o'clock position, followed by an endocervical curettage (ECC). Vaginoscopy of the upper vagina revealed no evidence of aceto-white lesions. Hemostasis was achieved using Monsel solution, and the patient tolerated the procedure well. Post-Procedure Instructions: The patient was advised to promptly contact the office or the after hours answering service or go to the emergency room if experiencing a temperature exceeding 100.4?F, abdominal pain, nausea/vomiting, or bleeding. Additionally, the patient was instructed to abstain from vaginal intercourse and bathtub use. The patient confirmed understanding of these instructions. Discharge Instructions: The patient was instructed to schedule a follow-up appointment in 2 weeks for further evaluation and management. Please note that this note was generated using a voice recognition program, and errors may have occurred during industrial sales engineer. [id number] of cervix including upper vagina with biopsy and ECC Procedure code (CPT) selection complete Assessment & Plan Assessment & Plan (1) ASCUS of cervix with negative high risk HPV: Code(s): R87.610 - Atypical squamous cells of undetermined significance on cytologic smear of cervix (ASC-US) Category: Medical Plan: Discussed with the patient the result of her abnormal pap, its significance, risk of progression, persistence, and regression. the false positive/negative rate of a Pap smear as a screening test in detecting cervical cancer and the indication for a diagnostic test -colposcopy, biopsy, endocervical curettage. The patient verbalized understanding and agreed with the plan, all questions answered. Colpo/biopsy/ECC done, see procedure note Orders: Orders AMB Colposcopy Today R87.610 - Atypical squamous cells of undetermined significance on cytologic smear of cervix (ASC-US) Coding Level of Care Code Procedure Only Diagnoses ASCUS of cervix with negative high risk HPV R87.610 CPT Codes Colposcopy - CPT: 09369-Yeryjrcxj of cervix including upper vagina with biopsy and ECC ([id number])
[2024-04-06 15:02] VITALS: BP 110/70; BMI 29.3
== END 2024-04-06 15:21 | disposition home or self-care (01) ==
LOC: HO.HWS 14:51
PROVIDERS: PCP Nurse Practitioner Primary Care; Visit Provider Obstetrics & Gynecology
DX: R87.610 Atypical squamous cells of undetermined significance on cytologic smear of cervix (ASC-US) (principal)
CPT/HCPCS: 57454

== ENCOUNTER 2024-05-17 11:53 | Outpatient (AMB) | payer OTHER, SELFPAY ==
--- NOTE | 2024-05-17 11:59 | MHC.OFFVIS ---
Vital Signs 05/17/24 12:01 Height 5 ft 4 in Weight 171 lb BMI 29.3 Intake Visit Reasons: colpo results Folding Machine Tender Required: No Information Interpreted: non-clinical & clinical Accompanied by: Self / Same As Patient Allergies seafood Allergy (Intermediate, Verified 05/17/24 12:01) rash/throat itchiness shellfish derived [SHELLFISH DERIVED] Allergy (Intermediate, Verified 05/17/24 12:01) RASH, THROAT ITCHINESS HPI Comments Details: Presenting post colpo for follow-up. The patient is doing well with no complaints. The pathology showed the following: A. Endocervix, curettage: Superficial strips of endocervical and squamous epithelium within normal limits. B. Cervix, 1 o'clock, biopsy: - Atrophic squamous epithelium. - Rare small fragment of partially degenerated endocervical epithelium. C. Cervix, 5 o'clock, biopsy: Mildly inflamed endocervical and squamous mucosa with reactive changes. D. Cervix, 7 o'clock, biopsy: - Atrophic squamous epithelium. - Definitive endocervical epithelium identified [facility] Medical History ASCUS with positive high risk HPV cervical Crohn's disease GERD (gastroesophageal reflux disease) Surgical History Hx of gastric bypass Hx of colonoscopy History of esophagogastroduodenoscopy (EGD) Family History Mother Diabetes Breast cancer Brother Diabetes Brother Diabetes Father Colon cancer Social History Alcohol intake: never Patient Tobacco Use Status: Never used Tobacco Second Hand Smoke Exposure: No Female Reproductive History Menstrual Age of Menarche: 11 Review of Systems Const All systems reviewed & are unremarkable except as noted in HPI and below Reports as per HPI and Reports no additional complaints GI Reports no additional complaints Reports no additional complaints Assessment & Plan Assessment & Plan (1) ASCUS of cervix with negative high risk HPV: Code(s): R87.610 - Atypical squamous cells of undetermined significance on cytologic smear of cervix (ASC-US) Category: Medical Plan: Discussed with the patient the pathology results of the colposcopy biopsies & endocervical curettage (negative). Discussed with the patient the sensitivity specificity, positive and negative predictive value in detecting cervical cancer in addition discussed the regression, persistence and progression rates. Recommended co-testing in 12 months, if cytology and or HPV are abnormal will proceed was colposcopy biopsy and endocervical curettage, if lesions gets worse or stays persistent for 2 years will proceed with loop electric excision procedure. Instructions given to the patient to schedule a co test appointment in 1 year. All questions answered the patient verbalized understanding. Coding Level of Care Code Est Pt Level 3 (98818) Diagnoses ASCUS of cervix with negative high risk HPV R87.610
[2024-05-17 12:01] VITALS: BMI 29.3
== END 2024-05-17 12:14 | disposition home or self-care (01) ==
LOC: HO.HWS 11:53
PROVIDERS: PCP Nurse Practitioner Primary Care; Visit Provider Obstetrics & Gynecology
DX: R87.610 Atypical squamous cells of undetermined significance on cytologic smear of cervix (ASC-US) (principal)
CPT/HCPCS: 99213

== ENCOUNTER → 2024-05-17 11:53 | Outpatient (BNVA) | payer OTHER, SELFPAY | PROVIDERS: PCP Nurse Practitioner Primary Care; Visit Provider Obstetrics & Gynecology ==

== ENCOUNTER 2024-06-30 10:45 | Outpatient (AMB) | payer OTHER, SELFPAY ==
--- NOTE | 2024-06-30 10:43 | MHC.OFFVISWM ---
VS Expanded 06/30/24 10:44 Height 5 ft 4 in Weight 175 lb BMI 30.0 Intake Visit Reasons: TELEPHONE - PO FOLLOW UP Allergies seafood Allergy (Intermediate, Verified 05/17/24 12:01) rash/throat itchiness shellfish derived [SHELLFISH DERIVED] Allergy (Intermediate, Verified 05/17/24 12:01) RASH, THROAT ITCHINESS Medication List - Last Reconciled 06/30/24 by OMID Robbins clotrimazole 1% 1 appl topical BID diclofenac sodium 1% 2 grams topical PRN folic acid 1 mg PO DAILY lansoprazole 30 mg PO DAILY methotrexate sodium 15 mg (6 x 2.5 mg) PO QWEEK ondansetron 4 mg PO Q8H PRN sodium,potassium,mag sulfates 17.5-3.13-1.6 gram (Suprep Bowel Prep Kit) DILUTE; drink 1/2 at 6-8 pm and half at 11 PM- 1AM trazodone 100 mg PO BEDTIME vedolizumab 300 mg IV Q8W HPI Comments Details: Pt is s/p LSG 2019. She does not follow a special meal plan for her Crohn's but tries to eat what does not cause flare ups/pain. She does not currently exercise and does not like to. Pt presents today due to issues of excess skin of abdomen. She reports painful rashes in the skin fold. Moisture collects in the skin folds and smells unpleasant so she has to clean more frequently than usual. Has to wear compressive waistband to hold skin in place to minimize discomfort. The excess skin is heavy and causes discomfort pulling on her torso/back. She finds that cleaning herself is more difficult due to having to move the excess skin out of the way. She finds that normal daily activities such as walking, bending, squatting can be more difficult due to the excess skin getting in the way. 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 [facility] Medical History ASCUS with positive high risk HPV cervical Crohn's disease GERD (gastroesophageal reflux disease) Surgical History Hx of gastric bypass Hx of colonoscopy History of esophagogastroduodenoscopy (EGD) Family History Mother Diabetes Breast cancer Brother Diabetes Brother Diabetes Father Colon cancer Social History Alcohol intake: never Patient Tobacco Use Status: Never used Tobacco Second Hand Smoke Exposure: No Female Reproductive History Menstrual Age of Menarche: 11 Telehealth Telehealth Telehealth Platform: Telephone Location of provider rendering services: other Location of patient: address on file Patient Identification confirmed using: Name, : Yes Telehealth method: voice only Patient verbally consented to treatment: Yes Patient verbally consented to billing insurance company: Yes Patient informed of any privacy concerns related to visit: Yes Minutes spent on Phone/Video with Pt.: 15 Assessment & Plan Assessment & Plan (1) Obesity: Code(s): E66.9 - Obesity, unspecified Category: Medical (2) Status post sleeve gastrectomy: Code(s): Z90.3 - Acquired absence of stomach [part of] Category: Medical (3) Excess skin: Code(s): L98.7 - Excessive and redundant skin and subcutaneous tissue Category: Medical Plan Gave pt RightBMI info to create a meal plan to help with weight loss to achieve BMI < 27. Clotrimazole ointment ordered for rashes of excess skin. RTC 6w for in person visit for physical exam. I spent a total of 30 minutes reviewing/updating records, examining the patient and counseling the patient on weight management as detailed above. Medications: New clotrimazole 1% 1 appl topical BID 45 grams 3RF
--- OUTSIDE RECORDS SUMMARY | 2024-06-30 13:20 | XMS_ITS | Encounter Summary ---
Author Organization [employer] [facility] Address [address] [place] [address] Care Team Providers Care Fleet Manager/Dispatch Name Role Phone Reyes Lugo MD Primary Care Provider Cha Navarro Primary Care Provider [phone] Encounter Details Date Type Department Care Team (Latest Contact Info) Description 08/09/2021 Abstract [facility] CONVERSIONS Dental, Provider, DDS Social History Tobacco Use Types Packs/Day Years Used Date Smoking Tobacco: Never Assessed Comments Unknown Sex and Gender Information Value Date Recorded Sex Assigned at Female 03/04/2022 10:32 AM EDT Legal Sex Female 10:32 AM EDT Gender Identity Female 03/04/2022 10:32 AM EDT Sexual Orientation Straight 03/04/2022 10 :32 AM EDT documented as of this encounter Plan of Treatment Upcoming Encounters Date Type Department Care Team (Late st Contact Info) Description 07/13/2024 10:00 AM EDT Office Visit [facility] ADULT DENTAL [address] [place] [address] Benito Alvarado DDS [address] [place] [address] documented as of this encounter Visit Diagnoses Not on filedocumented in this encounter Care Teams Fleet Manager/Dispatch Relationship Specialty Start Date End Date Reyes Lugo MD PCP - General Family Medicine 02/12/19 05/30/22 Cha Morgan ANP [address] [place] [address] PCP - General Family Medicine 05/31/22 documented as of this encounter
--- OUTSIDE RECORDS SUMMARY | 2024-06-30 13:20 | XMS_ITS | Encounter Summary ---
Author Organization [employer] [facility] Address [address] [place] [address] Care Team Providers Care Power Press Operator Name Role Phone Reyes Lugo MD Primary Care Provider Cha Navarro Primary Care Provider [phone] Encounter Details Date Type Department Care Team (Latest Contact Info) Description 10/05/2020 Abstract [facility] CONVERSIONS Dental, Provider, DDS Social History Tobacco [...] Description 07/13/2024 10:00 AM EDT Office Visit [facility] ADULT DENTAL [address] [place] [address] Benito Alvarado DDS [address] [place] [address] documented as of this encounter Visit Diagnoses Not on filedocumented in this encounter Care Teams Power Press Operator Relationship Specialty Start Date End Date Reyes Lugo MD PCP - General Family Medicine 02/12/19 05/30/22 Cha Morgan ANP [address] [place] [address] PCP - General Family Medicine 05/31/22 documented as of this encounter
--- OUTSIDE RECORDS SUMMARY | 2024-06-30 13:20 | XMS_ITS | Encounter Summary ---
Author Organization [employer] Address [address] [place] [address] Care Team Providers Care Tongue And Groove Machine Operator Name Role Phone Cha Morgan Primary Care Provider [phone] Encounter Details Date Type Department Care Team ([facility] st Contact Info) Description 03/19/[address] [facility] MEDICINE [address] [place], [place] [phone] Cha Morgan ANP [address] [place] [address] Social History Tobacco Use Types Packs/Day Years Used Date Smoking Tobacco: Never Passive Smoke Exposure: Never Smokeless Tobacco: Never Alcohol Use Standard Drinks/Week Comments Never 0 (1 standard drink = 0.6 oz pur e alcohol) Depression Answer Date Recorded Patient Health Questionnaire-9 Score 0 01/13/2024 Patient Health Questionnaire-9 Score 0 01/13/2024 Last PHQ-9: Questionnaire Data Not on file 0 01/13/2024 Housing Stability Answer Date Recorded What is your housing situation today? I have liz herrera 01/13/[address] you li ve. Do you have problems with any of the following? None of the above 01/13/2024 Food Insecurity Answer Date Recorded Within the past 12 months, y ou worried that your food would run out before you got money to buy more: Never True 01/13/2024 Within the past 12 months,th e food you bought just didn't last and you didn't have enough money to get more: Never True 02/2024 Transportation Answer Date Recorded In the past 12 months, has l ack of transportation kept you from medical appts, meetings, work or from getting things needed for daily living? No 01/13/2024 Utilities Answer Date Recorded In the past 12 months, has t he electric, gas, oil or water company threatened to shut off services in your home? No 01/13/2024 Depression Answer Date Recorded Patient Health Questionnaire-2 Score 0 01/13/2024 Internet Access Answer Date Recorded Internet Access Q1 Yes 01/13/2024 Internet Access Q2 Not on file 01/13/2024 Comments No Sex and Gender Information Value Date Recorded Sex Assigned at Female 03/04/2022 10:32 AM EDT Legal Sex Female 10:32 AM EDT Gender Identity Female 03/04/2022 10:32 AM EDT Sexual Orientation Straight 03/04/2022 10 :32 AM EDT Occupation Industry Job Start Date Job End Date Not on file Not on file Not on file Not on file documented as of this encounter Plan of Treatment Upcoming Encounters Date Type Department Care Team (Late st Contact Info) Description 07/13/2024 10:00 AM EDT Office Visit [facility] ADULT DENTAL [address] [place] [address] Benito Alvarado DDS [address] [place] [address] documented as of this encounter Visit Diagnoses Not on filedocumented in this encounter Additional Health Concerns Assessment Noted Time PHQ-9 Depression Total Score: 0 01/13/20 24 10:34 AM EDT documented as of this encounter Care Teams Tongue And Groove Machine Operator Relationship Specialty Start Date End Date Cha Morgan ANP [address] [place] [address] PCP - General Family Medicine 05/31/22 documented as of this encounter
--- OUTSIDE RECORDS SUMMARY | 2024-06-30 13:20 | XMS_ITS | Encounter Summary ---
Author Organization [employer] [facility] Address [address] [place] [address] Care Team Providers Care Therapy Director Name Role Phone Reyes Lugo MD Primary Care Provider Cha Navarro Primary Care Provider [phone] Encounter Details Date Type Department Care Team (Latest Contact Info) Description 02/14/2022 Abstract [facility] CONVERSIONS Dental, Provider, DDS Social [...] Description 07/13/2024 10:00 AM EDT Office Visit [facility] ADULT DENTAL [address] [place] [address] Benito Alvarado DDS [address] [place] [address] documented as of this encounter Visit Diagnoses Not on filedocumented in this encounter Care Teams Therapy Director Relationship Specialty Start Date End Date Reyes Lugo MD PCP - General Family Medicine 02/12/19 05/30/22 Cha Morgan ANP [address] [place] [address] PCP - General Family Medicine 05/31/22 documented as of this encounter
--- OUTSIDE RECORDS SUMMARY | 2024-06-30 13:20 | XMS_ITS | Encounter Summary ---
Author Organization [employer] Address [address] [place] [address] Care Team Providers Care Software Applications Specialist Name Role Phone Cha Morgan Primary Care Provider [phone] Reason for Visit * Reason Onset Date Comments Med Refill 06/05/2022 Encounter Details Date Type Department Care Team ([facility] st Contact Info) Description 06/05/2022 Telephone [facility] MEDICINE [address], [place] [phone] Cha Morgan ANP [address] [place] [address] Med Refill Social History Tobacco Use Types Packs/Day Years Used Date Smoking Tobacco: Never Passive Smoke Exposure: Never Alcohol Use Standard Drinks/Week Comments Never 0 (1 standard drink = 0.6 oz pur e alcohol) Comments Unknown Sex and Gender Information Value Date Recorded Sex Assigned at Female 03/04/2022 10:32 AM EDT Legal Sex Female 10:32 AM EDT Gender Identity Female 03/04/2022 10:32 AM EDT Sexual Orientation Straight 03/04/2022 10 :32 AM EDT COVID-19 Exposure Response Date Recorded In the last 10 days, have yo u been in contact with someone who was confirmed or suspected to have Coronavirus/COVID-19? No / Unsure 06/04/2022 7:17 PM EST documented as of this encounter Miscellaneous Notes * Telephone Encounter - Veronika Castillo LPN - 06/05/2022 3:11 PM EST Please note Patient called seeking refill for Prednisone 20 mg given on 11/23/21 for short term.Please review and advise * Telephone Encounter - David Ivyos - 06/05/2022 3:05 PM EST Tc from pt requesting med refill Prednisone 10 mg documented in this encounter Plan of Treatment Upcoming Encounters Date Type Department Care Team (Late st Contact Info) Description 07/13/2024 10:00 AM EDT Office Visit [facility] ADULT DENTAL [address] [place] [address] Benito Alvarado DDS [address] [place] [address] documented as of this encounter Visit Diagnoses Not on filedocumented in this encounter Care Teams Software Applications Specialist Relationship Specialty Start Date End Date Cha Morgan ANP [address] [place] [address] PCP - General Family Medicine 05/31/22 documented as of this encounter
--- OUTSIDE RECORDS SUMMARY | 2024-06-30 13:20 | XMS_ITS | Clinical Summary ---
Author Organization [employer] Address [address] [facility] 7t [place] [address] Care Team Providers Care Wood Milling Machine Operator Name Role Phone Miguel Supa PALACIOS Primary Care Provider [phone] Allergies Active Allergy Reactions Criticality Noted Date Comments Shellfish Allergy 10/30/2022 Medications Vedolizumab (ENTYVIO IV) Infuse into a venous catheter. Every [address] [facility] GI Active Diclofenac Sodium 1 % gelIndications:Idi opathic osteoarthritis APPLY 2 GRAMS TOPICALLY UP TO FOUR TIMES DAILY NEEDED FOR PAIN OR swelling 100 g 2 3 Active acetaminophen (Tylenol) 500 MG tablet Take 2 tablets (1,000 mg) by mouth every 6 (six) hours if needed for moderate pain or fever. 30 tablet 4 Active lidocaine (Lidoderm) 5 % patch Apply 1 patch topically Once per day. Remove & discard patch within 12 hours or as directed by MD. 30 patch 2 4 02/18/20 25 Active lidocaine-prilocai ne (Emla) 2.5-2.5 % cream Apply topically if needed in the morning and at bedtime for moderate pain. 30 g 4 Active traZODone (Desyrel) 100 MG tabletIndications: Insomnia, unspecified type TAKE 1 TABLET BY MOUTH EVERY DAY AT BEDTIME 90 tablet 1 4 Active FLUoxetine (PROzac) 20 MG capsule TAKE 1 CAPSULE BY MOUTH EVERY DAY IN THE MORNING 90 capsule 1 4 Active omeprazole (PriLOSEC) [address] capsuleIndications :Heartburn Take 1 capsule 30 min before entyvio infusions for heartburn. Do not crush or chew. 45 capsule 1 4 Active clonazePAM (KlonoPIN) 1 MG tabletIndications: Anxiety with flying 1 tablet 30-60min before flight 4 tablet 4 Active famotidine (Pepcid) 20 MG tabletIndications: Heartburn TAKE 1 TABLET BY MOUTH TWICE DAILY NEEDED 40 tablet 5 Active Active Problems Problem Noted Date Diagnosed Date Elevated hemoglobin A1c 12/19/2022 Overview (12/19/2022): 6.1% on 10/2022 labs Erosive (osteo)arthritis 12/19/2022 History of repair of hiatal hernia 12/19/2022 Crohn's disease without complication 10/18/2022 Overview (12/19/2022): Follows w/ Dr. Ruiz Monthly Entyvio infusions EGD and colonoscopy 07/2022 Degeneration of cervical intervertebral disc 05/2022 Insomnia 09/02/2022 Rosacea 07/23/2018 Idiopathic osteoarthritis 01/29/2018 Acquired leg length discrepancy 05/02/2017 Mood disorder 05/02/2017 Encounters Date Type Department Care Team Description 05/25/2024 Refill [facility] [address] [place] [phone] Supa Miguel ANP Heartburn 04/06/2024 Orders Only GENERIC EXTERNAL DATA DEPARTMENT Provider, Generic External Data from Last 3 Months Immunizations Name Administration Dates Next Due Influenza injectable quadriv alent IIV4 with preservative 02/28/2021,01/19/2018 Influenza injectable quadriv alent preservative free 04/04/2023,02/18/2022,02/18/2020,2018,03/31/2017 Pfizer Covid-19 Vaccine 12+ 04/04/2023 Pfizer Covid-19 Vaccine 12+ Bivalent 05/28/2022 Pneumococcal Conjugate PCV 20 04/04/2023 TD (adult), 2 Lf tetanus tox oid, preservative free, adsorbed 03/31/2017 Tdap 08/26/2017 Zoster, Recombinant 06/06/2022,03/01/2022 Family History Medical History Relation Name Comments Colon cancer Father Glaucoma Mother Hip fracture Mother Stomach cancer Mother Liver cancer Mother's Sister congenital blindness Sister Relation Name Status Comments Father Mother Mother's Sister Sister Social History Tobacco Use Types Packs/Day Years Used Date Smoking Tobacco: Never Passive Smoke Exposure: Never Smokeless Tobacco: Never Tobacco Cessation:Counseling Given: Not Answered Alcohol Use Standard Drinks/Week Comments Never 0 [...] file Not on file Not on file Last Filed Vital Signs Vital Sign Reading Time Taken Comments Blood Pressure 120/72 02/27/2024 9:10 AM EDT Pulse 69 02/27/2024 9:10 AM EDT Temperature 36.5 ??C (97.7 ??F) 02/18/2024 10:12 AM E DT Respiratory Rate 18 02/18/2024 10:12 AM EDT Oxygen Saturation 96% 02/18/2024 10:12 AM EDT Inhaled Oxygen Concentration - - Weight 80.7 kg (178 lb) 02/18/2024 10:12 AM EDT Height 162.6 cm (5' 4 ) 02/18/2024 10:12 AM EDT Body Mass Index 30.55 02/18/2024 10:12 AM EDT Plan of Treatment Upcoming Encounters Date Type Department Care Team (Late st Contact Info) Description 07/13/2024 10:00 AM EDT Office Visit [facility] [address] [place], [place] [phone] Benito Alvarado, DDS [address] [place], [place] [phone] Health Maintenance Due Date Last Done Comments CT Colonography 1965 FIT DNA/Cologuard 1965 FIT 1965 FOBT 1965 Sigmoidoscopy 1965 Alcohol/Substance Use Screening 1975 COVID-19 Vaccine ( season) 2024 04/04/2023, 05/28/2022, 02/28/2021, Additional history exists Influenza Vaccine (#1) 2024 , 02/18/2022, 02/28/2021, Additional history exists Dental Oral Exam 01/25/2024 07/24/2023, , 10/05/2020, Additional history exists Dental X-Ray: Bitewings 07/24/2024 07/24/19, 02/14/2022, 10/05/2020, Additional history exists Dental Prophylaxis 09/16/2024 03/18/2024, 0 07/24/2023, 10/22/2022, Additional history exists Mammogram 12/25/2024 12/26/2023, 07/2 12/2022, 11/29/2022, Additional history exists Depression Screening 01/12/2025 01/13/2024, 01/13/20 SDOH Screening 01/12/2025 01/13/2024 Tobacco Screening 03/18/2025 03/18/2024 Cervical Cancer Screening 03/24/2025 HPV/Cotest 03/24/2025 10/30/2022, 10/30/2022 Pap Smear 03/24/2025 03/24/2024, 10/30/2022 Dental X-Ray: Full Mouth 10/06/2026 10/05/2020, 11/01/2017 DTaP/Tdap/Td Vaccines (2 - Td or Tdap) 08/27/2027 08/26/2017, 03/31/2017 Colonoscopy 01/10/2033 10/16/2022 Colorectal Cancer Screening 01/10/2033 RSV Patients and Patients Aged 60 years or older (1 - 1-dose 75+ series) 12/02/2038 Zoster Vaccines Completed 06/06/2022, 03/01/2022 HIV Screening Completed 10/22/2022, 11/23/2019 Hepatitis C Screening Completed 10/22/2022, 022 Pneumococcal Vaccine: 50+ Years Completed 04/04/2023 HIB Vaccines Aged Out No longer eligi ble based on patient's age to complete this topic HPV Vaccines Aged Out No longer eligi ble based on patient's age to complete this topic Hepatitis A Vaccines Aged Out No long er eligible based on patient's age to complete this topic Hepatitis B Vaccines Aged Out No long er eligible based on patient's age to complete this topic IPV Vaccines Aged Out No longer eligi ble based on patient's age to complete this topic Meningococcal Vaccine Aged Out No lashonda stan eligible based on patient's age to complete this topic RSV under 20 months Aged Out No longe r eligible based on patient's age to complete this topic Rotavirus Vaccines Aged Out No longer eligible based on patient's age to complete this topic Procedures Procedure Name Priority Date/Time Associated Diagnosis Comments HEMATOXYLIN AND EOSIN STAIN Routine 04/06/2024 3:15 PM EST PAP SMEAR Routine 03/24/2024 9:51 AM EST PROPHYLAXIS - ADULT Routine 03/18/2024 1 :00 PM EST Dental calculus Dental plaque BI MAMMOGRAM SCREENING TOMOSYNTHESIS BILATERAL Routine 12/26/2023 10:30 AM EDT BITEWINGS - 4 RADIOGRAPHIC IMAGES Routine 07/24/2023 10:00 AM EDT PERIODIC ORAL EVALUATION - ESTABLISHED PATIENT Routine 07/24/2023 10:00 AM EDT HPV GENOTYPES 16,18/45 Routine 10:41 AM EDT HEPATITIS C AB W/REFL TO HCV RNA, QN, PCR Routine 10/22/2022 11:38 AM EDT Healthcare maintenance HIV 1/2 ANTIGEN/ANTIBODY, FOURTH GENERATION W/RFL Routine 10/22/2022 11:38 AM EDT Healthcare maintenance HM COLONOSCOPY Routine 10/16/2022 11:44 AM EDT INTRAORAL - COMPLETE SERIES OF RADIOGRAPHIC IMAGES Routine 10/05/2020 12:00 AM EDT from Last 3 Months or Most Recently Relevant to Health Maintenance Results * Hematoxylin and Eosin Stain (04/06/2024 3:15 PM EST) 04/06/2024 3:15 PM EST 04/07/2024 8:18 AM EST [facility] - 04/09/2024 3:21 PM EST ----- ------- Name: Emma Rivera ?Age/Sex: 58/F ? : 1965 Unit#: [id number] ?? Attend Dr: Robert Lind MD ?Re04/06/24 ?Status: DEP REF ? Location: HO.LNP ?Disch: ? ----- ------- SPEC : [id number] ? RECD: 04/07/24 ? STATUS: ??SOUT ? REQ NUM: [id number] ? BONIFACIO: 04/06/24-326 ? SUBM DR: Robert Lind MD ? ENTERED: ??04/07/24 ?SP TYPE: Surgical ? OTHR DR: SUPA MGIUEL NP ? ORDERED: ??HE Stain/11, Gross Micro L4/4, IHC, IHC ER/NM/Her2N, Ki-67, p16 ? Diagnosis ?? A. ??Endocervix, curettage: ??Superficial strips of endocervical and squamous epithelium ?? within normal limits. ? B. ??Cervix, 1 o'clock, biopsy: ?- Atrophic squamous epithelium. ?- Rare small fragment of partially degenerated endocervical epithelium. ? C. ??Cervix, 5 o'clock, biopsy: ??Mildly inflamed endocervical and squamous mucosa with ?? reactive changes. ? D. ??Cervix, 7 o'clock, biopsy: ?- Atrophic squamous epithelium. ?- Definitive endocervical epithelium identified. ?Clinical History ASCUS of cervix with negative HPV ?Microscopic Description A-D. ??Microscopic sections reviewed. ??Immunostains for p16 and Ki-67 support the diagnosis in D. ? Material Received ?? A. ECC ?? B. Cx bx 1 o'clock ?? C. Cx bx 5 o'clock ?? D. Cx bx 7 o'clock ? Gross Description Received in 4 parts. A. ??Received in formalin labeled ?ECC? are scant fragments of clancy- white soft tissue mixed with mucus and clotted blood forming an aggregate measuring 0.7 x 0.6 x 0.1 cm which is wrapped in lens paper and entirely submitted for microscopic examination, multiple pieces in cassette A. B. Received in formalin labeled ?CX Bx 1? is a fragment of rubbery, white tissue measuring 0.3 cm in greatest dimension which is wrapped in lens paper and entirely submitted for microscopic examination, 1 piece in cassette B. ? CONTINUED ON NEXT PAGE ----- ------- Name: Emma Rivera ?Age/Sex: 58/F ? : 1965 Unit#: [id number] ?? Attend Dr: Robert Lind MD ?Re04/06/24 ?Status: DEP REF ? Location: HO.LNP ?Disch: ? ----- ------- SPEC : [id number] ? RECD: 04/07/24 ? STATUS: ??SOUT ? REQ NUM: [id number] ? BONIFACIO: 04/06/24-1514 ? SUBM DR: Robert Lind MD ? ENTERED: ??04/07/24 ?SP TYPE: Surgical ? OTHR DR: SUPA MIGUEL NP ? ORDERED: ??HE Stain/11, Gross Micro L4/4, IHC, IHC ER/NM/Her2N, Ki-67, p16 ? Gross Description ?(Continued) C. Received in formalin labeled ?CX Bx 5? is a fragment of rubbery, white tissue measuring 0.5 cm in greatest dimension which is wrapped in lens paper and entirely submitted for microscopic examination, 1 piece in cassette C. D. Received in formalin labeled ?CX Bx 7? are 2 fragments of rubbery, white tissue measuring 0.3 and 0.3 cm in greatest dimension which are wrapped in lens paper and entirely submitted for microscopic examination, 2 pieces in cassette D. [facility] This case was reviewed intradepartmentally. Special studies ordered and performed: Immunostains for p16 and Ki-67 on D Copies To: ?? SUPA MIGUEL NP ?? [facility] ?? [address] ?? [place] [address] ?? [phone] ?? Robert Lind MD ?? [facility] ?? [address] ?? [place] [address] ?? [phone] ----- ------- Signed (signature on file) Gabino Martinez MD 04/09/24 1521 ? ----- ------- ? END OF REPORT ? us Generic External Data Provider LAB BLOOD ORDERAB LES Final Result [facility] [address] [place] [address] [phone] * Pap Smear (03/24/2024 9:51 AM EST) 03/24/2024 9:51 AM EST 03/25/2024 8:50 AM EST Narrative [facility] - 04/02/2024 12:09 PM EST ----- ------- Name: Emma Rivera ?Age/Sex: 58/F ? : 1965 Unit#: [id number] ?? Attend Dr: Robert Lind MD ?Re03/24/24 ?Status: DEP REF ? Location: HO.LNP ?Disch: ? ----- ------- SPEC : [id number] ?RECD: 03/25/24 ? STATUS: ??SOUT ? REQ NUM: [id number] ? BONIFACIO: 03/24/24-950 ? SUBM DR: Robert Lind MD ? ENTERED: ??03/25/24 ?SP TYPE: Pap Smr ?OTHR : SUPA MIGUEL NP ? ORDERED: ??Pap Smear, PAP path review ? Interpretation ?? ABNORMAL PAP TEST. ?? Satisfactory for evaluation, with atypical squamous cells of undetermined significance ?? (ASC-US). ? HPV High Risk: ??Negative ? HPV Genotyping 16: ??Negative ?? HPV Genotyping 18: ??Negative ?Clinical Information LMP: Postmenopausal Previous PAP test: 12/2022, ASCUS, HPV + ? Material Received ?? ThinPrep-Cervical Copies To: ?? SUPA MIGUEL NP ?? [facility] ?? [address] ?? [place] [address] ?? [phone] ?? Robert Lind MD ?? [facility] ?? [address] ?? [place] [address] ?? [phone] ----- ------- Signed (signature on file) Gabino Martinez MD 04/02/24 6516 ? ----- ------- ? END OF REPORT ? us Generic External Data Provider LAB CYTOLOGY AGATAE FLORENTIN Final Result [facility] [address] [place] [address] [phone] * BI Mammogram Screening Tomosynthesis Bilateral (12/26/2023 10:30 AM EDT) Anatomical Region Laterality Modality Breast Bilateral Mammography 12/26/2023 10:3 0 AM EDT Narrative 01/22/2024 10:25 PM EDT ? [facility] [place] ? [address] ?[place] [address] ? Mammography Report ? Signed ? Patient: Miguel,Emma ?MR#: [id number] ?? 1 ? : 1965 ?Acct:[id number] ? Age/Sex: 58 / F ?ADM Date: 08/23/24 ? Loc: HO.MAMMO ? Attending Dr: Supa Miguel ERP PM ? Ordering Physician: MYRIAM,SUPA ERP PM ?Results: 1Negative ? Date of Service: 08//24 ?Follow Up: 1 Year From Orig ?? inal Mammogram ? Procedure(s): MM tomosynthesis screening BI ?? Accession Number(s): [id number] ? cc: MYRIAM,SUPA ERP PM ? EXAMINATION: ?? MM SCREENING DIGITAL BREAST TOMOSYNTHESIS, BILATERAL ? CLINICAL INFORMATION: ? Screening. Asymptomatic. ? COMPARISON: ?? Mammography: This study is compared with prior exams dating back to ? 2021. ? TECHNIQUE: ?? Digital breast tomosynthesis is performed in both the craniocaudal and ?? mediolateral oblique views along with computer-aided detection (CAD). ? Synthesized 2D images are generated from the tomosynthesis. ? FINDINGS: ?? There are scattered areas of fibroglandular density (ACR BI-RADS breast ?? composition Category b). ? There are no significant masses, abnormal calcifications, or other ?? abnormalities. ? MM/MM tomosynthesis screening BI ?? IMPRESSION: ?? No mammographic evidence of malignancy. ? ASSESSMENT: ? BI-RADS BI-RADS 1 - Negative ? RECOMMENDATION: ?? Routine annual mammography screening. ? 1 year F/U ? This examination should not preclude the clinical evaluation of a ?? suspicious palpable abnormality. ? This patient's information was entered into a reminder system with a ?? target due date for their next mammogram. ? Electronically signed by: ??Elda Butler MD ??01/22/2024 10:22 PM EDT RP ? Dictated By: ?Elda Butler MD ? Signed By: ?<Electronically signed by Elda Butler MD in OV> ? 01/22/24 2222 ? DD/ 1030 ? TD/TT: 12/26/23 1048 ? Detector Car Operator: ? Procedure Note Darcy, Malick - 01/22/2024 [facility] [address] [place] [address] Mammography Report Signed Patient: Patria Rivera#: [id number] 1 : 1965Acct:[id number] Age/Sex: 58 / FADM Date: 12/26/23 Loc: HO.MAMMO Attending Dr: Supa Miguel NP Ordering Physician: SUPA MIGUEL NPResults: 1Negative Date of Service: 12/26/23Follow Up: 1 Year From Orig inal Mammogram Procedure(s): MM tomosynthesis screening BI Accession Number(s): [id number] cc: SUPA MIGUEL NP EXAMINATION: MM SCREENING DIGITAL BREAST TOMOSYNTHESIS, BILATERAL CLINICAL INFORMATION: Screening. Asymptomatic. COMPARISON: Mammography: This study is compared with prior exams dating back to 2021. TECHNIQUE: Digital breast tomosynthesis is performed in both the craniocaudal and mediolateral oblique views along with computer-aided detection (CAD). Synthesized 2D images are generated from the tomosynthesis. FINDINGS: There are scattered areas of fibroglandular density (ACR BI-RADS breast composition Category b). There are no significant masses, abnormal calcifications, or other abnormalities. MM/MM tomosynthesis screening BI IMPRESSION: No mammographic evidence of malignancy. ASSESSMENT: BI-RADS BI-RADS 1 - Negative RECOMMENDATION: Routine annual mammography screening. 1 year F/U This examination should not preclude the clinical evaluation of a suspicious palpable abnormality. This patient's information was entered into a reminder system with a target due date for their next mammogram. Electronically signed by: Elda Butler MD 01/22/2024 10:22 PM EDT Dictated By: Elda Butler MD Signed By: <Electronically signed by Elda Butler MD in OV> 01/22/24 2222 DD/ 1030 TD/TT: 12/26/23 1048 Detector Car Operator: Supa Miguel [facility] BI PROCEDURES Final Result * HPV Genotypes 16,18/45 (10/30/2022 10:41 AM EDT) HPV 16 RNA NOT DETECTED NOT DETECTED [facility] [place] [facility] HPV 18/45 RNA NOT DETECTED NOT DETECTED [facility] [place] [facility] Comment: Methodology: Artillery Officer Mediated Amplification Cervical sources are required for HPV testing. If a vaginal source from a patient who has had a total hysterectomy with removal of cervix was submitted, please contact the testing laboratory for alternative testing options. 10/30/2022 10:4 1 AM EDT 10/31/2022 1:23 AM EDT Nataly Ovi [facility] LAB BLOOD ORDERABLES Nina l Result Performing Organization Address City/[facility]/ZIP Co de Phone Number [employer] [address] [place] [address], [facility] [place] [address] [facility] [place] [facility] [address] [place] [phone] * Hepatitis C Antibody with Reflex to HCV, RNA, Quantitative, Real-Time PCR (10/22/2022 11:38 AM EDT) Pathologist [facility] Hepatitis C Antibody NON-REACT GARRISON NON-REACT GARRISON [facility] [place] [facility] Comment: HCV antibody was non-reactive. There is no laboratory evidence of HCV infection. In most cases, no further action is required. However, if recent HCV exposure is suspected, a test for HCV RNA (test code 90460) is suggested. For additional information please refer to http://education.reQwip/faq/HYR72m3 (This link is being provided for informational/ educational purposes only.) Blood Venous blood specimen / Unknown 10/22/2022 11:38 AM EDT 10/22/2022 11:39 AM EDT Narrative [facility] - 10/26/2022 12:15 AM EDT FASTING:YES FASTING: YES Supa PALACIOS LAB BLOOD ORDERABLES Final Resul t Performing Organization Address City/[facility]/ZIP Co de Phone Number [address], [place] [address] [facility] [place] [facility] [address] [place] [phone] * HIV-1/2 Antigen and Antibodies, Fourth Generation, with Reflexes (10/22/2022 11:38 AM EDT) Pathologist [facility] HIV Antigen/Antibody, 4th Generation NON-REAC TIVE NON-REAC TIVE [facility] [place] [facility] Comment: HIV-1 antigen and HIV-1/HIV-2 antibodies were not detected. There is no laboratory evidence of HIV infection. PLEASE NOTE: This information has been disclosed to you from records whose confidentiality may be protected by state law. ??If your state requires such protection, then the state law prohibits you from making any further disclosure of the information without the specific written consent of the person to whom it pertains, or as otherwise permitted by law. A general authorization for the release of medical or other information is NOT sufficient for this purpose. ?? For additional information please refer to http://education.reQwip/faq/AKQ490 (This link is being provided for informational/ educational purposes only.) The performance of this assay has not been clinically validated in patients less than 2 years old. Blood Venous blood specimen / Unknown 10/22/2022 11:38 AM EDT 10/22/2022 11:39 AM EDT Narrative [facility] - 10/26/2022 12:15 AM EDT FASTING:YES FASTING: YES us Supa PALACIOS LAB BLOOD ORDERABLES Final Resul t [facility] [address], [place] [address] [facility] [place] [facility] [address] [place] [address] * Hm Colonoscopy (10/16/2022 11:44 AM EDT) Colonoscopy Normal Normal us Germaine Ruiz MD HEALTH MAINTENANCE Final Result from Last 3 Months or Most Recently Relevant to Health Maintenance Insurance HSN PARTIAL [employer]ETNA PPO DENTAL - AETNA DENTAL PPO [place] Care Teams Wood Milling Machine Operator Relationship Specialty Start Date End Date Supa Miguel ANP [address] [place] [phone] PCP - General Family Medicine 05/31/22
--- OUTSIDE RECORDS SUMMARY | 2024-06-30 13:20 | XMS_ITS | Encounter Summary ---
Author Organization [employer] [facility] Address [address] [facility] [address] [place] [address] Care Team Providers Care Purchasing Coordinator Name Role Phone Reyes Lugo MD Primary Care Provider Cha Navarro Primary Care Provider [phone] Encounter Details Date Type Department Care Team (Latest Contact Info) Description 12/25/2018 Abstract [facility] CONVERSIONS Dental, Provider, DDS Social History Tobacco [...] Description 07/13/2024 10:00 AM EDT Office Visit [facility] ADULT DENTAL [address] [place] [address] Benito Alvarado DDS [address] [place] [address] documented as of this encounter Visit Diagnoses Not on filedocumented in this encounter Care Teams Purchasing Coordinator Relationship Specialty Start Date End Date Reyes Lugo MD PCP - General Family Medicine 02/12/19 05/30/22 Cha Morgan ANP [address] [place] [address] PCP - General Family Medicine 05/31/22 documented as of this encounter
== END 2024-06-30 11:30 | disposition home or self-care (01) ==
LOC: HO.HBS 10:45
PROVIDERS: PCP Nurse Practitioner Primary Care; Visit Provider Physician Assistant Surgical
DX: E66.811 Obesity, class 1 (principal); Z68.30 Body mass index [BMI] 30.0-30.9, adult; Z98.84 Bariatric surgery status; L98.7 Excessive and redundant skin and subcutaneous tissue
CPT/HCPCS: 98012

== ENCOUNTER → 2024-06-30 10:45 | Outpatient (BNVA) | payer OTHER, SELFPAY | PROVIDERS: PCP Nurse Practitioner Primary Care; Visit Provider Physician Assistant Surgical ==

== ENCOUNTER 2024-07-07 08:36 | Outpatient (REF) | payer OTHER, SELFPAY ==
[2024-07-07 08:51] LABS: MANUAL DIFF FLAG NO
--- OUTSIDE RECORDS SUMMARY | 2024-07-07 09:12 | XMS_ITS | Encounter Summary ---
Author Organization [employer] [facility] Address [address] [facility] [address] [place] [address] Care Team Providers Care Air Turning Machine Feeder Name Role Phone Reyes Lugo MD Primary Care Provider Cha Navarro Primary Care Provider [phone] Encounter Details Date Type Department Care Team (Latest Contact Info) Description 10/05/2020 Abstract [facility] CONVERSIONS Dental, Provider, DDS Social History Tobacco [...] Description 07/13/2024 10:00 AM EDT Office Visit [facility] ADULT DENTAL [address] [place] [address] Benito Alvarado DDS [address] [place] [address] documented as of this encounter Visit Diagnoses Not on filedocumented in this encounter Care Teams Air Turning Machine Feeder Relationship Specialty Start Date End Date Reyes Lugo MD PCP - General Family Medicine 02/12/19 05/30/22 Cha Morgan ANP [address] [place] [address] PCP - General Family Medicine 05/31/22 documented as of this encounter
--- OUTSIDE RECORDS SUMMARY | 2024-07-07 09:12 | XMS_ITS | Encounter Summary ---
Author Organization [employer] [facility] Address [address] [facility] [address]t [place] [address] Care Team Providers Care Pinion Polisher Name Role Phone Reyes Lugo MD Primary Care Provider Cha Navarro Primary Care Provider [phone] Encounter Details Date Type Department Care Team (Latest Contact Info) Description 12/25/2018 Abstract [facility] CONVERSIONS Dental, Provider, DDS Social History Tobacco [...] Description 07/13/2024 10:00 AM EDT Office Visit [facility] [address] [place] [address] Benito Alvarado DDS [address] [place] [address] documented as of this encounter Visit Diagnoses Not on filedocumented in this encounter Care Teams Pinion Polisher Relationship Specialty Start Date End Date Reyes Lugo MD PCP - General Family Medicine 02/12/19 05/30/22 Cha Morgan ANP [address] [place] [address] PCP - General Family Medicine 05/31/22 documented as of this encounter
--- OUTSIDE RECORDS SUMMARY | 2024-07-07 09:12 | XMS_ITS | Encounter Summary ---
Author Organization [employer] Address [address] [facility] 7t [place] [address] Care Team Providers Care Dinkey Brakeman Name Role Phone Cha Morgan Primary Care Provider [phone] Reason for Visit * Reason Onset Date Comments Med Refill 06/05/2022 Encounter Details Date Type Department Care Team ([facility] st Contact Info) Description 06/05/2022 Telephone [facility] MEDICINE [address] [place], [place] [phone] Cha Morgan ANP [address] [place] [address] Med Refill Social History Tobacco Use Types [...] Description 07/13/2024 10:00 AM EDT Office Visit [facility] ADULT DENTAL [address] [place] [address] Benito Alvarado DDS [address] [place] [address] documented as of this encounter Visit Diagnoses Not on filedocumented in this encounter Care Teams Dinkey Brakeman Relationship Specialty Start Date End Date Cha Morgan ANP [address] [place] [address] PCP - General Family Medicine 05/31/22 documented as of this encounter
--- OUTSIDE RECORDS SUMMARY | 2024-07-07 09:12 | XMS_ITS | Encounter Summary ---
Author Organization [employer] Address 75 [facility] 7t [place] [address] Care Team Providers Care Asian Studies Program Chair Name Role Phone Cha Morgan Primary Care Provider [phone] Encounter Details Date Type Department Care Team ([facility] st Contact Info) Description 03/19/2024 Orders Only [facility] MEDICINE [address] [place], [place] [phone] Cha Morgan ANP [address] [place] [address] Social History Tobacco Use Types Packs/Day Years [...] Description 07/13/2024 10:00 AM EDT Office Visit [facility] ADULT DENTAL [address] [place] [address] Benito Alvarado DDS [address] [place] [address] documented as of this encounter Visit Diagnoses Not on filedocumented in this encounter Additional Health Concerns Assessment Noted Time PHQ-9 Depression Total Score: 0 01/13/20 24 10:34 AM EDT documented as of this encounter Care Teams Asian Studies Program Chair Relationship Specialty Start Date End Date Cha Morgan ANP [address] [place] [address] PCP - General Family Medicine 05/31/22 documented as of this encounter
--- OUTSIDE RECORDS SUMMARY | 2024-07-07 09:12 | XMS_ITS | Encounter Summary ---
Author Organization [employer] [facility] Address 75 [facility] 7t [place] [address] Care Team Providers Care Christian Counselor Name Role Phone Reyes Lugo MD Primary Care Provider Cha Navarro Primary Care Provider [phone] Encounter Details Date Type Department Care Team (Latest Contact Info) Description 02/14/2022 Abstract [facility] CONVERSIONS Dental, Provider, DDS Social History Tobacco [...] Description 07/13/2024 10:00 AM EDT Office Visit [facility] ADULT DENTAL [address] [place] [address] Benito Alvarado DDS [address] [place] [address] documented as of this encounter Visit Diagnoses Not on filedocumented in this encounter Care Teams Christian Counselor Relationship Specialty Start Date End Date Reyes Lugo MD PCP - General Family Medicine 02/12/19 05/30/22 Cha Morgan ANP [address] [place] [address] PCP - General Family Medicine 05/31/22 documented as of this encounter
--- OUTSIDE RECORDS SUMMARY | 2024-07-07 09:12 | XMS_ITS | Encounter Summary ---
Author Organization [employer] [facility] Address 75 [facility] 7t [place] [address] Care Team Providers Care Fisher Gill Net Name Role Phone Reyes Lugo MD Primary Care Provider Cha Navarro Primary Care Provider [phone] Encounter Details Date Type Department Care Team (Latest Contact Info) Description 08/09/2021 Abstract [facility] CONVERSIONS Dental, Provider, DDS Social History [...] 07/13/2024 10:00 AM EDT Office Visit [facility] ADULT DENTAL [address] [place] [address] Benito Alvarado DDS [address] [place] [address] documented as of this encounter Visit Diagnoses Not on filedocumented in this encounter Care Teams Fisher Gill Net Relationship Specialty Start Date End Date Reyes Lugo MD PCP - General Family Medicine 02/12/19 05/30/22 Cha Morgan ANP [address] [place] [address] PCP - General Family Medicine 05/31/22 documented as of this encounter
--- OUTSIDE RECORDS SUMMARY | 2024-07-07 09:12 | XMS_ITS | Clinical Summary ---
Author Organization [employer] Address 75 [facility] 7t [place] [address] Care Team Providers Care Shredding Machine Operator Name Role Phone Miguel Supa PALACIOS Primary Care Provider [phone] Allergies Active Allergy Reactions Criticality Noted Date Comments Shellfish Allergy 10/30/2022 Medications Vedolizumab (ENTYVIO IV) Infuse into a venous catheter. Every 2 mos IV via [facility] GI Active Diclofenac Sodium 1 % gelIndications:Idi [...] Type Department Care Team Description 05/25/2024 Refill [facility] MEDICINE [address] [place] [address] Supa Miguel ANP Heartburn from Last 3 Months Immunizations Name Administration [...] Description 07/13/2024 10:00 AM EDT Office Visit [facility] ADULT DENTAL [address] [place], [place] [phone] Benito Alvarado, DDS [address] [place], [place] [phone] Health Maintenance Due Date Last Done Comments [...] 10/22/2022, Additional history exists Mammogram 12/25/2024 12/26/2023, 0712/2022, 11/29/2022, Additional history exists Depression Screening 01/12/2025 [...] Procedure Name Priority Date/Time Associated Diagnosis Comments PAP SMEAR Routine 03/24/2024 9:51 AM EST [...] Recently Relevant to Health Maintenance Results * Pap Smear (03/24/2024 9:51 AM EST) 03/24/2024 9:51 AM EST 03/25/2024 8:50 AM EST [facility] - 04/02/2024 12:09 PM EST ----- ------- Name: Emma Rivera ?Age/Sex: 58/F ? : 1965 Unit#: [id number] ?? Attend Dr: Robert Lind MD ?Re03/24/24 ?Status: DEP REF ? Location: HO.LNP ?Disch: ? ----- ------- SPEC : [id number] ?RECD: 03/25/24 ? STATUS: ??SOUT ? REQ NUM: [id number] ? BONIFACIO: 03/24/24 ? SUBM DR: Robert Lind MD ? ENTERED: ??03/25/24 ?SP TYPE: Pap Smr ?OTHR DR: SUPA MIGUEL NP ? ORDERED: ??Pap Smear, [...] Copies To: ?? SUPA MIGUEL NP ?? [facility] ?? [address] ?? [place] [address] ?? [phone] ?? Robert Lind MD ?? [facility] Women[facility] ?? [address] ?? [place] [address] ?? [phone] ----- ------- Signed (signature on file) Gabino Martinez MD 04/02/24 0462 ? ----- ------- ? END OF REPORT ? Generic External Data Provider LAB CYTOLOGY TALAT LERMA Final Result [facility] [address] [place] [address] [phone] * BI Mammogram Screening Tomosynthesis Bilateral (12/26/2023 10:30 AM EDT) Anatomical Region Laterality Modality Breast Bilateral Mammography 12/26/2023 10:3 0 AM EDT Narrative 01/22/2024 10:25 PM EDT ? [facility] ? [address] ?[place] [address] ? Mammography Report ? Signed ? Patient: Miguel,Emma ?MR#: [id number] ?? 1 ? : 1965 ?Acct:[id number] ? Age/Sex: 58 / F ?ADM Date: 12/26/23 ? Loc: HO.MAMMO ? Attending Dr: Supa Miguel MASTER MERCHANDISER ? Ordering Physician: SUPA MIGUEL NP ?Results: 1Negative ? Date of Service: 12/26/23 ?Follow Up: 1 Year From Orig ?? inal Mammogram ? Procedure(s): MM tomosynthesis screening BI ?? Accession Number(s): [id number] ? cc: SUPA MIGUEL NP ? EXAMINATION: ?? MM SCREENING DIGITAL BREAST [...] DD/ 1030 ? TD/TT: 12/26/23 1048 ? License And Permit Specialist: ? Procedure Note Darcy, Image - 01/22/2024 [facility] [address] [place] [address] Mammography Report Signed Patient: Michelle RiveraR#: [id number] 1 : 1965Acct:[id number] Age/Sex: 58 / FADM Date: 12/26/23 Loc: HO.MAMMO Attending Dr: Supa Miguel NP Ordering Physician: SUPA MIGUELults: 1Negative Date of Service: 12/26/23Follow Up: 1 Year From Orig inal Mammogram Procedure(s): MM tomosynthesis screening BI Accession Number(s): [id number] cc: SUPA MIGUEL NP EXAMINATION: MM SCREENING [...] Elda Butler MD 01/22/2024 10:22 PM EDT RP Dictated By: Elda Butler MD Signed By: <Electronically signed by Elda Butler MD in OV> 01/22/24 2222 DD/ 1030 TD/TT: 12/26/23 1048 License And Permit Specialist: Supa PALACIOS [facility] BI PROCEDURES Final Result * HPV Genotypes 16,18/45 (10/30/2022 10:41 AM EDT) HPV 16 RNA NOT DETECTED NOT DETECTED [facility] [employer] HPV 18/45 RNA NOT DETECTED NOT DETECTED [facility] [employer] Comment: Methodology: Risk Compliance Analyst Mediated Amplification Cervical sources are required for HPV testing. If a vaginal source from a patient who has had a total hysterectomy with removal of cervix was submitted, please contact the testing laboratory for alternative testing options. 10/30/2022 10:4 1 AM EDT 10/31/2022 1:23 AM EDT [facility] LAB BLOOD ORDERABLES Nina l Result [facility] [address] [place] [address] [facility] [address] [place] [address] * Hepatitis C Antibody with Reflex to HCV, RNA, Quantitative, Real-Time PCR (10/22/2022 11:38 AM EDT) Hepatitis C Antibody NON-REACT GARRISON NON-REACT GARRISON [facility] [employer] Comment: HCV antibody was non-reactive. There is no laboratory evidence of HCV infection. In most cases, no further action is required. However, if recent HCV exposure is suspected, a test for HCV RNA (test code 81447) is suggested. For additional information please refer to http://[facility]/faq/NDB27d6 (This link is being provided for informational/ educational purposes only.) Blood Venous blood specimen / Unknown 10/22/2022 11:38 AM EDT 10/22/2022 11:39 AM EDT Narrative [facility] - 10/26/2022 12:15 AM EDT FASTING:YES FASTING: YES [facility] LAB BLOOD ORDERABLES Final Resul t [facility] [address] [place] [address] [facility] [address] [place] [address] * HIV-1/2 Antigen and Antibodies, Fourth Generation, with Reflexes (10/22/2022 11:38 AM EDT) [facility] HIV Antigen/Antibody, 4th Generation NON-REAC TIVE NON-REAC TIVE [facility] Comment: HIV-1 antigen and HIV-1/HIV-2 antibodies [...] ?? For additional information please refer to http://[facility].[employer]/faq/TCB574 (This link is being provided for informational/ educational purposes only.) The performance of this assay has not been clinically validated in patients less than 2 years old. Blood Venous blood specimen / Unknown 10/22/2022 11:38 AM EDT 10/22/2022 11:39 AM EDT Narrative [facility] - 10/26/2022 12:15 AM EDT FASTING:YES FASTING: YES us Supa PALACIOS LAB BLOOD ORDERABLES Final Resul t [facility] [address], [place] [address] [facility] [address] [place] [address] * Hm Colonoscopy (10/16/2022 11:44 AM EDT) Colonoscopy Normal Normal us Germaine Ruiz MD HEALTH MAINTENANCE Final Result from Last 3 Months or Most Recently Relevant to Health Maintenance Insurance HSN PARTIAL [employer]ETNA PPO DENTAL - AETNA DENTAL PPO [place] Care Teams Shredding Machine Operator Relationship Specialty Start Date End Date Supa Miguel ANP [address] [place] [id number] PCP - General Family Medicine 05/31/22
[2024-07-07 09:57] LABS: Basophils Percent Auto 0.5 % (0-2); Eosinophils Absolute Auto 0.1 X10*3/uL (0.0-0.4); Eosinophils Percent Auto 1.9 % (0-4); Hematocrit 40.5 % (37.0-47.0); Hemoglobin 13.4 g/dl (12.0-16.0); Imm Gran Abs Auto 0.02 X10*3/uL (0.00-0.03); Imm Gran Pct Auto 0.3 % (0.0-0.4); Lymphocytes Absolute Auto 0.4 X10*3/uL (1.2-4.9); Lymphocytes Percent Auto 6.2 % (20-40); Mean Corpuscular HGB Conc 33.1 g/dl (31.0-35.0); Mean Corpuscular Hemoglobin 27.6 pg (27.0-33.0); Mean Corpuscular Volume 83.5 fL (80.0-98.0); Mean Platelet Volume 9.6 fL (9.4-12.3); Monocytes Absolute Auto 0.3 X10*3/uL (0.1-1.2); Monocytes Percent Auto 4.5 % (2-11); Neutrophils Absolute Auto 5.4 x10*3/uL (2.0-8.3); Neutrophils Percent Auto 86.6 % (45-73); Platelet Count 207 X10*3/uL (160-400); Red Blood Count 4.85 X10*6/uL (4.20-5.50); Red Cell Distribution Width 12.9 % (11.0-16.0); White Blood Count 6.3 X10*3/uL (4.8-10.8)
[2024-07-07 10:12] LABS: Estimated Average Glucose 120 mg/dL; Hemoglobin A1C 141.0024 umol/L; Hemoglobin A1c % 5.8 % (<6.0); Total Hemoglobin (HGBA1C) 3549.0594 umol/L
[2024-07-07 10:33] LABS: Alanine Aminotransferase 81 U/L (0-31); Albumin Level 3.9 g/dL (3.5-5.0); Alkaline Phosphatase 96 U/L (39-117); Anion Gap 10 (12-20); Aspartate Amino Transferase 85 U/L (5-31); Bilirubin Total 0.7 mg/dL (0.0-1.0); Blood Urea Nitrogen 25 mg/dL (9-16); C Reactive Protein 1.85 mg/dL (< or = 0.50); Calcium 9.2 mg/dL (8.4-10.2); Carbon Dioxide 26 mmol/L (22-29); Chloride 107 mmol/L (96-108); Cholesterol 216 mg/dL (<200); Estimated Glomerular Filt Rate > 60; Glucose Random 131 mg/dL (60-115); HDL Cholesterol 46 mg/dL (>40); Iron 59 mcg/dL (30-160); LDL Cholesterol Calculated 151 mg/dL (<100); Percent Iron Saturation 18 % (15-50); Sodium 139 mmol/L (135-145); Total Iron Binding Capacity 329 mcg/dL (228-428); Total Protein 7.5 g/dL (6.5-8.0); Triglycerides 95 mg/dL (<150); Unsaturated Iron Binding 270 ug/dL
[2024-07-07 10:58] LABS: Ferritin 25 ng/mL (10-250); TSH reflex Free T4 1.01 uIU/mL (0.32-4.0); Vitamin D 25-OH Total 28.3 ng/mL (>30)
[2024-07-07 11:00] LABS: Folate 7.7 ng/mL (> or = 4.0); Vitamin B12 535 pg/mL (200-900)
[2024-07-07 11:11] LABS: Insulin 10 uU/mL (2-29)
[2024-07-10 22:44] LABS: Zinc 54 mcg/dL (60-130)
[2024-07-11 00:04] LABS: Vitamin A 44 mcg/dL (38-98)
[2024-07-17 16:08] LABS: Vitamin B1 16 nmol/L (8-30)
== END 2024-07-07 08:37 | disposition home or self-care (01) ==
LOC: HO.LAB 08:36
PROVIDERS: PCP Internal Medicine Gastroenterology; Visit Provider Physician Assistant Surgical
DX: Z90.3 Acquired absence of stomach [part of] (principal); Z13.6 Encounter for screening for cardiovascular disorders; Z13.1 Encounter for screening for diabetes mellitus
CPT/HCPCS: 36415; 80053; 80061; 82306; 82607; 82728; 82746; 83036; 83525; 83540; 84425; 84443; 84590; 84630; 85025; 86140

== ENCOUNTER 2024-07-20 10:28 | Outpatient (AMB) | payer OTHER, SELFPAY ==
--- NOTE | 2024-07-20 10:31 | MHC.OFFVISWM ---
VS Expanded 07/20/24 10:38 BP 112/55 L Blood Pressure Location Rt brachial Blood Pressure Position Sitting Pulse 59 Pulse Source Pulse Oximeter Temp 93.2 F L Temperature Source Temporal Artery Scan Pulse Oximetry 99 Oxygen Delivery Method Room Air Height 5 ft 4 in Weight 175 lb 6.4 oz BMI 30.1 Body Fat % 42.6 Body Fat Mass 74.8 Fat Free Mass 100.6 Visceral Fat Rating 11.0 Body Water % 40.6 Body Water Mass 71.2 Muscle Mass/Score 95.4 Basal Metabolic Rate/Score 1,398 Intake Visit Reasons: OV - physical Exam-excess skin Allergies seafood Allergy (Intermediate, Verified 07/20/24 10:34) rash/throat itchiness shellfish derived [SHELLFISH DERIVED] Allergy (Intermediate, Verified 07/20/24 10:34) RASH, THROAT ITCHINESS Medication List - Last Reconciled 07/20/24 by OMID Robbins cholecalciferol (vitamin D3) 25 mcg PO DAILY clotrimazole 1% 1 appl topical BID diclofenac sodium 1% 2 grams topical PRN lansoprazole 30 mg PO DAILY trazodone 100 mg PO BEDTIME zinc gluconate 30 mg PO DAILY HPI Comments Details: Pt is s/p LSG 2019. Weight stable since last visit 3w ago. She says her weight has been stable on her home scale also. She does not follow a special meal plan for her Crohn's but tries to eat what does not cause flare ups/pain. She does not currently exercise and does not like to. Pt presents today due to issues of excess skin of abdomen. She reports painful rashes in the skin fold. Moisture collects in the skin folds and smells unpleasant so she has to clean more frequently than usual. She has tried the clotrimazole ointment prescribed at last visit but this has not helped. Has to wear compressive waistband to hold skin in place to minimize discomfort. The excess skin is heavy and causes discomfort pulling on her torso/back. She finds that cleaning herself is more difficult due to having to move the excess skin out of the way. She finds that normal daily activities such as walking, bending, squatting can be more difficult due to the excess skin getting in the way. 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 She reports a previous umbilical hernia repair in the past- unsure if mesh was used but thinks so. PFSH Medical History ASCUS with positive high risk HPV cervical Crohn's disease GERD (gastroesophageal reflux disease) Surgical History Hx of gastric bypass Hx of colonoscopy History of esophagogastroduodenoscopy (EGD) Family History Mother Diabetes Breast cancer Brother Diabetes Brother Diabetes Father Colon cancer Social History Alcohol intake: never Patient Tobacco Use Status: Never used Tobacco Second Hand Smoke Exposure: No Female Reproductive History Menstrual Age of Menarche: 11 Physical Exam Const General: cooperative, comfortable and no acute distress Orientation/consciousness: patient oriented x3 GI Other: soft, nontender, nondistended, incisions well healed, no hernia, no masses Grade II pannus Neuro General: patient oriented x3 Assessment & Plan Assessment & Plan (1) Excess skin: Code(s): L98.7 - Excessive and redundant skin and subcutaneous tissue Category: Medical (2) Status post sleeve gastrectomy: Code(s): Z90.3 - Acquired absence of stomach [part of] Category: Medical (3) Obesity: Code(s): E66.9 - Obesity, unspecified Category: Medical Plan Pt plans to resume exercise to help with weight loss. Gave [employer] form. She keeps a strict diet to avoid Crohn's flareups but we discussed adjusting her nutrition plan if she struggles with weight loss. Goal 158-159lbs prior to panniculectomy. Needs 3mo topical rx for skin issues- eligible in September. Labs reviewed, vit D and zinc supplements ordered. RTC 1 month in person, can take photos at that time. Medications: New zinc gluconate 30 mg PO DAILY 90 tabs 3RF cholecalciferol (vitamin D3) 25 mcg PO DAILY 90 caps 3RF
[2024-07-20 10:38] VITALS: BP 112/55; PULSE 59; TEMP 34; O2SAT 99; BMI 30.1
--- OUTSIDE RECORDS SUMMARY | 2024-07-20 12:12 | XMS_ITS | Encounter Summary ---
Author Organization [employer] [facility] Address [address] [facility] 7t [place] [address] Care Team Providers Care Precision Printing Worker Name Role Phone Reyes Lugo MD Primary Care Provider Cha Navarro Primary Care Provider [phone] Encounter Details Date Type Department Care Team (Latest Contact Info) Description 02/14/2022 Abstract [facility] CONVERSIONS Dental, Provider, DDS Social History Tobacco Use Types Packs/Day Years Used Date Smoking Tobacco: Never Assessed Comments Unknown Sex and Gender Information Value Date Recorded Sex Assigned at Female 03/04/2022 10:32 AM EDT Legal Sex Female 10:32 AM EDT Gender Identity Female 03/04/2022 10:32 AM EDT Sexual Orientation Straight 03/04/2022 10 :32 AM EDT documented as of this encounter Plan of Treatment Not on file documented as of this encounter Visit Diagnoses Not on filedocumented in this encounter Care Teams Precision Printing Worker Relationship Specialty Start Date End Date Reyes Lugo MD PCP - General Family Medicine 02/12/19 05/30/22 Cha Morgan ANP [address] [place] [address] PCP - General Family Medicine 05/31/22 documented as of this encounter
--- OUTSIDE RECORDS SUMMARY | 2024-07-20 12:12 | XMS_ITS | Encounter Summary ---
Author Organization [employer] [facility] Address [address] [facility] 7t [place] [address] Care Team Providers Care Carpet Or Rug Layer Helper Name Role Phone Reyes Lugo MD Primary Care Provider Cha Navarro Primary Care Provider [phone] Encounter Details Date Type Department Care Team (Latest Contact Info) Description 08/09/2021 Abstract [facility] CONVERSIONS Dental, Provider, DDS Social [...] on filedocumented in this encounter Care Teams Carpet Or Rug Layer Helper Relationship Specialty Start Date End Date Reyes Lugo MD PCP - General Family Medicine 02/12/19 05/30/22 Cha Morgan ANP [address] [place] [address] PCP - General Family Medicine 05/31/22 documented as of this encounter
--- OUTSIDE RECORDS SUMMARY | 2024-07-20 12:12 | XMS_ITS | Encounter Summary ---
Author Organization [employer] [facility] Address [address] [facility] 7t [place] [address] Care Team Providers Care Stockbroker Name Role Phone Reyes Lugo MD Primary Care Provider Cha Navarro Primary Care Provider [phone] Encounter Details Date Type Department Care Team (Latest Contact Info) Description 12/25/2018 Abstract [facility] CONVERSIONS Dental, Provider, DDS Social [...] on filedocumented in this encounter Care Teams Stockbroker Relationship Specialty Start Date End Date Reyes Lugo MD PCP - General Family Medicine 02/12/19 05/30/22 Cha Morgan ANP [address] [place] [address] PCP - General Family Medicine 05/31/22 documented as of this encounter
--- OUTSIDE RECORDS SUMMARY | 2024-07-20 12:12 | XMS_ITS | Encounter Summary ---
Author Organization [employer] Address [address] [facility] [address] 7t [place] [address] Care Team Providers Care Arson And Bomb Investigator Name Role Phone Cathy Cha PALACIOS Primary Care Provider Encounter Details Date Type Department Care Team (Latest Contact Info) Description 07/12/2024 Travel Social History Tobacco Use Types Packs/Day Years [...] documented as of this encounter Care Teams Arson And Bomb Investigator Relationship Specialty Start Date End Date Cha Morgan ANP [address] [place] [address] PCP - General Family Medicine 05/31/22 documented as of this encounter
--- OUTSIDE RECORDS SUMMARY | 2024-07-20 12:12 | XMS_ITS | Encounter Summary ---
Author Organization [employer] Address 75 [facility] 7t [place] [address] Care Team Providers Care Nurse Behavioral Health Care Name Role Phone Cha Morgan Primary Care Provider [phone] Reason for Visit * Reason Onset Date Comments Med Refill 06/05/2022 Encounter Details Date Type Department Care Team ([facility] st Contact Info) Description 06/05/2022 Telephone [facility] MEDICINE [address] [place], [place] [phone] Cha Morgan ANP [address] [place] [address] Med Refill Social History Tobacco Use Types [...] and advise * Telephone Encounter - David Avery - 06/05/2022 3:05 PM EST Tc from pt requesting med refill Prednisone 10 mg documented in this encounter Plan of Treatment Not on file documented as of this encounter Visit Diagnoses Not on filedocumented in this encounter Care Teams Nurse Behavioral Health Care Relationship Specialty Start Date End Date Cha Morgan ANP [address] [place] [address] PCP - General Family Medicine 05/31/22 documented as of this encounter
--- OUTSIDE RECORDS SUMMARY | 2024-07-20 12:12 | XMS_ITS | Encounter Summary ---
Author Organization [employer] [facility] Address 75 [facility] 7t [place] [address] Care Team Providers Care Vice President Underwriting Name Role Phone Reyes Lugo MD Primary Care Provider Cha Navarro Primary Care Provider [phone] Encounter Details Date Type Department Care Team (Latest Contact Info) Description 10/05/2020 Abstract [facility] CONVERSIONS Dental, Provider, DDS Social [...] on filedocumented in this encounter Care Teams Vice President Underwriting Relationship Specialty Start Date End Date Reyes Lugo MD PCP - General Family Medicine 02/12/19 05/30/22 Cha Morgan ANP [address] [place] [address] PCP - General Family Medicine 05/31/22 documented as of this encounter
--- OUTSIDE RECORDS SUMMARY | 2024-07-20 12:12 | XMS_ITS | Clinical Summary ---
Author Organization [employer] Address [address] [facility] 7t [place] [address] Care Team Providers Care Manufacturing Specialist Name Role Phone Miguel Supa PALACIOS Primary Care Provider [phone] Allergies Active Allergy Reactions Criticality Noted Date Comments Shellfish Allergy 10/30/2022 Medications Vedolizumab (ENTYVIO IV) Infuse into a venous catheter. Every 2 mos IV via [facility] GI Active Diclofenac Sodium 1 % gelIndications:Idi [...] Encounters Date Type Department Care Team Description 07/12/2024 Travel 05/25/2024 Refill [facility] [address] [place] [phone] Supa Miguel ANP Heartburn from Last 3 [...] 02/18/2024 10:12 AM EDT Plan of Treatment Health Maintenance Due Date Last Done Comments CT Colonography 1965 FIT DNA/Cologuard 1965 FIT 1965 FOBT 1965 Sigmoidoscopy 1965 Alcohol/Substance Use Screening 1975 COVID-19 Vaccine ( season) 2024 04/04/2023, 05/28/2022, 02/28/2021, Additional history exists Influenza Vaccine (#1) 2024 , 02/18/2022, 02/28/2021, Additional history exists Dental Oral Exam 01/25/2024 07/24/2023, , 10/05/2020, Additional history exists Dental X-Ray: Bitewings 07/24/2024 07/24/19 24, 02/14/2022, 10/05/2020, Additional history exists Dental Prophylaxis 09/16/2024 03/18/2024, 0 07/24/2023, 10/22/2022, Additional history exists Mammogram 12/25/2024 12/26/2023, 0712/2022, 11/29/2022, Additional history exists Depression Screening 01/12/2025 01/13/2024, 01/13/20 SDOH Screening 01/12/2025 01/13/2024 Tobacco Screening 03/18/2025 03/18/2024 Cervical Cancer Screening 03/24/2025 HPV/Cotest 03/24/2025 10/30/2022, 10/30/2022 Pap Smear 03/24/2025 03/24/2024, 10/30/2022 Dental X-Ray: Full Mouth 10/06/2026 10/05/2020, 11/0 01/2017 DTaP/Tdap/Td Vaccines (2 - Td or Tdap) [...] 9:51 AM EST 03/25/2024 8:50 AM EST [facility] LABS - 04/02/2024 12:09 PM EST ----- ------- Name: Emma Rivera ?Age/Sex: 58/F ? : 1965 Unit#: [id number] ?? Attend Dr: Robert Lind MD ?Re03/24/24 ?Status: DEP REF ? Location: HO.LNP ?Disch: ? ----- ------- SPEC : [id number] ?RECD: 03/25/24 ? STATUS: ??SOUT ? REQ NUM: [id number] ? BONIFACIO: 03/24/24 ? SUBM DR: Robert [...] Copies To: ?? SUPA MIGUEL NP ?? [facility] ?? [address] ?? [place] [address] ?? [phone] ?? Robert Lind MD ?? [facility] Women's Services ?? [address] [facility] [address] ?? [place] [address] ?? [phone] ----- ------- Signed (signature on file) Gabino Martinez MD 04/02/24 1209 ? ----- ------- ? END OF REPORT ? us Generic External Data Provider LAB CYTOLOGY [facility] Final Result [facility] [address] [place] [phone] * BI Mammogram Screening Tomosynthesis Bilateral (12/26/2023 10:30 AM EDT) Anatomical Region Laterality Modality Breast Bilateral Mammography 12/26/2023 10:3 0 AM EDT Narrative 01/22/2024 10:25 PM EDT ? [facility] [place] ? [address] [facility] ?[place] [address] ? Mammography Report ? Signed ? Patient: Emma Rivera ?MR#: [id number] ?? 1 ? : 1965 ?Acct:[id number] ? Age/Sex: 58 / F ?ADM Date: 08/23/24 ? Loc: HO.MAMMO ? Attending Dr: Supa Miguel CLINIC BUSINESS MANAGER ? Ordering Physician: SUPA MIGUEL NP ?Results: 1Negative ? Date of Service: 12/26/23 ?Follow Up: 1 Year From Orig ?? inal Mammogram ? Procedure(s): MM tomosynthesis screening BI ?? Accession Number(s): [id number] ? cc: SUPA MIGUEL NP ? EXAMINATION: [...] by Elda Butler MD in OV> ? 01/22/242 ? DD/ 1030 ? TD/TT: 12/26/23 1048 ? Precision Agriculture Technician: ? Procedure Note Donjn, Image - 01/22/2024 [place] [facility]'s [address] [place] [address] Mammography Report Signed Patient: Patria Rivera#: [id number] 1 : 1965Acct:[id number] Age/Sex: 58 / FADM Date: 12/26/23 Loc: MAMMO Attending Dr: Supa Miguel NP Ordering Physician: SUPA MIGUELesults: 1Negative Date of Service: 12/26/23Follow Up: 1 Year From Orig inal Mammogram Procedure(s): MM tomosynthesis screening BI Accession Number(s): [id number] cc: SUPA MIGUEL NP EXAMINATION: MM SCREENING [...] 01/22/24 2222 DD/ 1030 TD/TT: 12/26/23 1048 Precision Agriculture Technician: Supa PALACIOS IMG BI PROCEDURES Final Result * HPV Genotypes 16,18/45 (10/30/2022 10:41 AM EDT) Pathologist [facility] HPV 16 RNA NOT DETECTED NOT DETECTED [facility] [employer] HPV 18/45 RNA NOT DETECTED NOT DETECTED [facility] Comment: Methodology: Sterile Technician Mediated Amplification Cervical sources are required for HPV testing. If a vaginal source from a patient who has had a total hysterectomy with removal of cervix was submitted, please contact the testing laboratory for alternative testing options. 10/30/2022 10:4 1 AM EDT 10/31/2022 1:23 AM EDT Nataly Dior [facility] LAB BLOOD ORDERABLES Nina l Result [facility] [address], [place] [address] [facility] 200 [place] [address] * Hepatitis C Antibody with Reflex to HCV, RNA, Quantitative, Real-Time PCR (10/22/2022 11:38 AM EDT) Pathologist [facility] Hepatitis C Antibody NON-REACT GARRISON NON-REACT GARRISON [facility] [place] [facility] Comment: HCV antibody was non-reactive. There is no laboratory evidence of HCV infection. In most cases, no further action is required. However, if recent HCV exposure is suspected, a test for HCV RNA (test code 60913) is suggested. For additional information please refer to http://education.[employer]ell[employer]/faq/PCK08l4 (This link is being provided for informational/ educational purposes only.) Blood Venous blood specimen / Unknown 10/22/2022 11:38 AM EDT 10/22/2022 11:39 AM EDT Narrative [facility] - 10/26/2022 12:15 AM EDT FASTING:YES FASTING: YES us Supa Miguel ANP LAB BLOOD ORDERABLES Final Resul t [facility] [address], [place] [address] [facility] 200 [place] [address] * HIV-1/2 Antigen and Antibodies, Fourth Generation, with Reflexes (10/22/2022 11:38 AM EDT) HIV Antigen/Antibody, 4th Generation NON-REAC TIVE NON-REAC TIVE [employer] [facility] [place] [facility] Comment: HIV-1 antigen and HIV-1/HIV-2 antibodies were [...] ?? For additional information please refer to http://education.Nellix/faq/CGD037 (This link is being provided for informational/ educational purposes only.) The performance of this assay has not been clinically validated in patients less than 2 years old. Blood Venous blood specimen / Unknown 10/22/2022 11:38 AM EDT 10/22/2022 11:39 AM EDT Narrative [facility] - 10/26/2022 12:15 AM EDT FASTING:YES FASTING: YES us Suap PALACIOS LAB BLOOD ORDERABLES Final Resul t [facility] [address], [place] [address] [facility] 200 [place] [address] * Hm Colonoscopy (10/16/2022 11:44 AM EDT) Colonoscopy Normal Normal Germaine Ruiz MD HEALTH MAINTENANCE Final Result from Last 3 Months or Most Recently Relevant to Health Maintenance Insurance HSN PARTIAL AETNA PPO DENTAL - AETNA DENTAL PPO [place] Care Teams Manufacturing Specialist Relationship Specialty Start Date End Date Supa Miguel ANP [address] [place] [phone] PCP - General Family Medicine 05/31/22
--- OUTSIDE RECORDS SUMMARY | 2024-07-20 12:12 | XMS_ITS | Encounter Summary ---
Author Organization [employer] Address [address] [facility] 7t [place] [address] Care Team Providers Care Manager Heavy Duty Name Role Phone Cha Morgan Primary Care Provider [phone] Encounter Details Date Type Department Care Team ([facility] st Contact Info) Description 03/19/2024 Orders Only [facility] 230 [place], [place] [phone] Cha Morgan ANP 230 [place] [address] Social History Tobacco Use Types Packs/Day Years [...] documented as of this encounter Care Teams Manager Heavy Duty Relationship Specialty Start Date End Date Cha Morgan ANP [address] [place] [address] PCP - General Family Medicine 05/31/22 documented as of this encounter
== END 2024-07-20 11:11 | disposition home or self-care (01) ==
LOC: HO.HBS 10:28
PROVIDERS: PCP Nurse Practitioner Primary Care; Visit Provider Physician Assistant Surgical
DX: L98.7 Excessive and redundant skin and subcutaneous tissue (principal); Z90.3 Acquired absence of stomach [part of]; E66.9 Obesity, unspecified
CPT/HCPCS: 99214; G2211

== ENCOUNTER → 2024-07-20 10:28 | Outpatient (BNVA) | payer OTHER, SELFPAY | PROVIDERS: PCP Nurse Practitioner Primary Care; Visit Provider Physician Assistant Surgical ==

== ENCOUNTER 2024-08-18 09:17 | Outpatient (AMB) | payer OTHER, SELFPAY ==
[2024-08-18 09:23] VITALS: BP 123/58; PULSE 62; O2SAT 98; BMI 29.9
--- NOTE | 2024-08-18 09:23 | MHC.OFFVISWM ---
VS Expanded 08/18/24 09:23 BP 123/58 L Blood Pressure Location Lt brachial Blood Pressure Position Sitting Pulse 62 Pulse Oximetry 98 Height 5 ft 4 in Weight 174 lb 6.4 oz BMI 29.9 Body Fat % 41.8 Body Fat Mass 73.0 Fat Free Mass 101.4 Visceral Fat Rating 10.0 Body Water % 41.2 Body Water Mass 71.8 Muscle Mass/Score 96.4 Basal Metabolic Rate/Score 1,405 Intake Visit Reasons: OV PO LSG/ excess skin Asbestos Abatement Technician Required: No Allergies seafood Allergy (Intermediate, Verified 08/18/24 09:24) rash/throat itchiness shellfish derived [SHELLFISH DERIVED] Allergy (Intermediate, Verified 08/18/24 09:24) RASH, THROAT ITCHINESS Medication List - Last Reconciled 08/18/24 by OMID Robbins cholecalciferol (vitamin D3) 25 mcg PO DAILY clotrimazole 1% 1 appl topical BID diclofenac sodium 1% 2 grams topical PRN famotidine 20 mg PO BID PRN fluoxetine 20 mg PO DAILY lansoprazole 30 mg PO DAILY trazodone 100 mg PO BEDTIME Zepbound (tirzepatide (weight loss)) 2.5 mg (0.5 mL) subcut QWEEK NS zinc gluconate 30 mg PO DAILY HPI Comments Details: Pt is s/p LSG 2018. Weight loss of 1lb since last OV. She does not follow a special meal plan for her Crohn's but tries to eat what does not cause flare ups/pain. She has started exercise at the [facility]- takes classes a few days a week- cardio and weights. Pt presents today due to issues of excess skin of abdomen. She reports painful rashes in the skin fold. Moisture collects in the skin folds and smells unpleasant so she has to clean more frequently than usual. She has tried the clotrimazole ointment prescribed at last visit but this has not helped. Has to wear compressive waistband to hold skin in place to minimize discomfort. The excess skin is heavy and causes discomfort pulling on her torso/back. She finds that cleaning herself is more difficult due to having to move the excess skin out of the way. She finds that normal daily activities such as walking, bending, squatting can be more difficult due to the excess skin getting in the way. 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 She reports a previous umbilical hernia repair in the past- unsure if mesh was used but thinks so. PFSH Medical History ASCUS with positive high risk HPV cervical Crohn's disease GERD (gastroesophageal reflux disease) Surgical History Hx of gastric bypass Hx of colonoscopy History of esophagogastroduodenoscopy (EGD) Family History Mother Diabetes Breast cancer Brother Diabetes Brother Diabetes Father Colon cancer Social History Alcohol intake: never Patient Tobacco Use Status: Never used Tobacco Second Hand Smoke Exposure: No Female Reproductive History Menstrual Age of Menarche: 11 Physical Exam Vital Signs: Last Vital Signs Pulse 62 08/18/24 09:23 BP 123/58 L 08/18/24 09:23 Pulse Ox 98 08/18/24 09:23 BMI result Body Mass Index 29.9 Assessment & Plan Assessment & Plan (1) Excess skin: Code(s): L98.7 - Excessive and redundant skin and subcutaneous tissue Category: Medical (2) Status post sleeve gastrectomy: Code(s): Z90.3 - Acquired absence of stomach [part of] Category: Medical (3) Overweight: Code(s): E66.3 - Overweight Category: Medical Plan Goal 158-159lbs prior to panniculectomy. Needs 3mo topical rx for skin issues- eligible in September. Pt is interested in starting GLP1. Reviewed contraindications, discussed dosing. Discussed need for adequate protein intake while on GLP1s as well as frequent communication with our office. Pt will check in with me weekly and is aware that subsequent Rx will be dependent on frequent communication. Also recommended restarting blanquita MVI, not taking currently. Biotin ok also. RTC 6 weeks. Photos taken today of excess skin. Medications: New Zepbound (tirzepatide (weight loss)) for 4 weeks 2.5 mg (0.5 mL) subcut QWEEK 2 mL 0RF NS
--- OUTSIDE RECORDS SUMMARY | 2024-08-18 10:06 | XMS_ITS | Encounter Summary ---
Author Organization [employer] Address [address] [facility] 7t [place] [address] Care Team Providers Care Workers Compensation Claims Examiner Name Role Phone Cha Morgan Primary Care Provider [phone] Reason for Visit * Reason Onset Date Comments Med Refill 06/05/2022 Encounter Details Date Type Department Care Team ([facility] st Contact Info) Description 06/05/2022 Telephone [facility] 230 [place], [place] [phone] Cha Morgan ANP 230 [place] [address] Med Refill Social History Tobacco Use Types [...] on filedocumented in this encounter Care Teams Workers Compensation Claims Examiner Relationship Specialty Start Date End Date Cha Morgan ANP [address] [place] [address] PCP - General Family Medicine 05/31/22 documented as of this encounter
--- OUTSIDE RECORDS SUMMARY | 2024-08-18 10:07 | XMS_ITS | Encounter Summary ---
Author Organization [employer] [facility] Address [address] [facility] 7t [place] [address] Care Team Providers Care Systems Applications Programming Lead Name Role Phone Reyes Lugo MD Primary Care Provider Cha Navarro Primary Care Provider [phone] Encounter Details Date Type Department Care Team [...] on filedocumented in this encounter Care Teams Systems Applications Programming Lead Relationship Specialty Start Date End Date Reyes Lugo MD PCP - General Family Medicine 02/12/19 05/30/22 Cha Morgan ANP 230 [place] [address] PCP - General Family Medicine 05/31/22 documented as of this encounter
--- OUTSIDE RECORDS SUMMARY | 2024-08-18 10:07 | XMS_ITS | Encounter Summary ---
Author Organization [employer] Address [address] [facility] 7t [place] [address] Care Team Providers Care Pharmacy Innovation Assistant Name Role Phone Cha Morgan Primary Care Provider [phone] Encounter Details Date Type Department Care Team ([facility] st Contact Info) Description 03/19/[address] [facility] 230 [place], [place] [phone] Cha Morgan ANP 230 [place] [address] Social History Tobacco Use Types Packs/Day Years [...] documented as of this encounter Care Teams Pharmacy Innovation Assistant Relationship Specialty Start Date End Date Cha Morgan ANP [address] [place] [address] PCP - General Family Medicine 05/31/22 documented as of this encounter
--- OUTSIDE RECORDS SUMMARY | 2024-08-18 10:07 | XMS_ITS | Encounter Summary ---
Author Organization [employer] [facility] Address [address] [facility] 7t [place] [address] Care Team Providers Care Computer Systems Manager Name Role Phone Reyes Lugo MD Primary Care Provider Cha Navarro Primary Care Provider Encounter Details Date Type [...] on filedocumented in this encounter Care Teams Computer Systems Manager Relationship Specialty Start Date End Date Reyes Lugo MD PCP - General Family Medicine 02/12/19 05/30/22 Cha Morgan ANP 230 [place] [address] PCP - General Family Medicine 05/31/22 documented as of this encounter
--- OUTSIDE RECORDS SUMMARY | 2024-08-18 10:07 | XMS_ITS | Clinical Summary ---
Author Organization [employer] Address [address] [facility] 7t [place] [address] Care Team Providers Care First Officer And Flight Instructor Name Role Phone Miguel Supa PALACIOS Primary Care Provider [phone] Allergies Active Allergy Reactions Criticality Noted Date Comments Shellfish Allergy 10/30/2022 Medications Vedolizumab (ENTYVIO IV) Infuse into a venous catheter. Every 2 mos IV via [facility] GI Active Diclofenac Sodium 1 % gelIndications:Idi [...] Encounters Date Type Department Care Team Description 08/09/2024 Telephone [facility]INE 230 [place] [address] Supa Miguel ANP 07/12/2024 Travel 05/25/2024 Refill [facility] 230 [place] [address] Supa Miguel ANP Heartburn from Last 3 [...] 10/30/2022 Dental X-Ray: Full Mouth 10/06/2026 10/05/2020, 1101/2017 DTaP/Tdap/Td Vaccines (2 - Td or Tdap) [...] 9:51 AM EST 03/25/2024 8:50 AM EST [facility] LABS - 04/02/2024 12:09 PM EST ----- ------- Name: Emma Rivera ?Age/Sex: 58/F ? : 1965 Unit#: [id number] ?? Attend Dr: Robert Lind MD ?Re03/24/24 ?Status: DEP REF ? Location: HO.LNP ?Disch: ? ----- ------- SPEC : [id number] ?RECD: 03/25/24 ? STATUS: ??SOUT ? REQ NUM: [id number] ? BONIFACIO: 03/24/24 ? SUBM DR: Robert [...] Copies To: ?? SUPA MIGUEL NP ?? [facility] ?? [address] [facility] [address] ?? [place] [address] ?? [phone] ?? Robert Lind MD ?? [facility] Women's Services ?? [address] [facility] [address] ?? [place] [address] ?? [phone] ----- ------- Signed (signature on file) Gabino Martinez MD 04/02/24 1209 ? ----- ------- ? END OF REPORT ? us Generic External Data Provider LAB CYTOLOGY TALAT LERMA Final Result Performing Organization Address [facility]/State/ZIP Co de Phone Number [facility] [address] [place] [phone] * BI Mammogram Screening Tomosynthesis Bilateral (12/26/2023 10:30 AM EDT) Anatomical Region Laterality Modality Breast Bilateral Mammography 12/26/2023 10:3 0 AM EDT Narrative 01/22/2024 10:25 PM EDT ? [facility]'s [place] ? [address] ?[place] [address] ? Mammography Report ? Signed ? Patient: Miguel,Emma ?MR#: [id number] ?? 1 ? : 1965 ?Acct:[id number] ? Age/Sex: 58 / F ?ADM Date: 08/23/24 ? Loc: HO.MAMMO ? Attending Dr: Supa Miguel SAP BODS DEVELOPER ? Ordering Physician: SUPA MIGUEL NP ?Results: 1Negative ? Date of Service: 12/26/23 ?Follow Up: 1 Year From Orig ?? inal Mammogram ? Procedure(s): MM tomosynthesis screening BI ?? Accession Number(s): [id number] ? cc: SUPA MIGUEL NP ? EXAMINATION: [...] DD/ 1030 ? TD/TT: 12/26/23 1048 ? Wardrobe Specialty Worker: ? Procedure Note Donotuseinterpreter, Image - 01/22/2024 [place] [facility]'s [address] [place] [address] Mammography Report Signed Patient: Patria Rivera#: [id number] 1 : 1965Acct:[id number] Age/Sex: 58 / FADM Date: 12/26/23 Loc: HO.MAMMO Attending Dr: Supa Miguel NP Ordering Physician: SUPA MIGUEL NPResults: 1Negative Date of Service: 12/26/23Follow Up: 1 Year From Orig inal Mammogram Procedure(s): MM tomosynthesis screening BI Accession Number(s): [id number] cc: SUPA MIGUEL NP EXAMINATION: MM SCREENING [...] 01/22/24 2222 DD/ 1030 TD/TT: 12/26/23 1048 Wardrobe Specialty Worker: us Supa PALACIOS IMKeegan BI PROCEDURES Final Result * HPV Genotypes 16,18/45 (10/30/2022 10:41 AM EDT) HPV 16 RNA NOT DETECTED NOT DETECTED [employer] [place] [facility] HPV 18/45 RNA NOT DETECTED NOT DETECTED [employer] [place] [facility] Comment: Methodology: Student Support Services Director Mediated Amplification Cervical sources are required for HPV testing. If a vaginal source from a patient who has had a total hysterectomy with removal of cervix was submitted, please contact the testing laboratory for alternative testing options. 10/30/2022 10:4 1 AM EDT 10/31/2022 1:23 AM EDT Nataly D[facility] LAB CYTOLOGY ORDERABLES F inal Result [facility] [address], [place] [address] [employer] [facility] 200 [place] [address] * Hepatitis C Antibody with Reflex to HCV, RNA, Quantitative, Real-Time PCR (10/22/2022 11:38 AM EDT) Hepatitis C Antibody NON-REACT GARRISON NON-REACT GARRISON [employer] [place] [facility] Comment: HCV antibody was non-reactive. There is no laboratory evidence of HCV infection. In most cases, no further action is required. However, if recent HCV exposure is suspected, a test for HCV RNA (test code 19686) is suggested. For additional information please refer to http://education.[employer]/faq/FTY80q6 (This link is being provided for informational/ educational purposes only.) Blood Venous blood specimen / Unknown 10/22/2022 11:38 AM EDT 10/22/2022 11:39 AM EDT Narrative [facility] - 10/26/2022 12:15 AM EDT FASTING:YES FASTING: YES Supa Miguel ANP LAB BLOOD ORDERABLES Final Resul t Performing Organization Address [facility] Co de Phone Number [facility] [address], [place] [address] [employer] [facility] 200 [place] [address] * HIV-1/2 Antigen and Antibodies, Fourth Generation, with Reflexes (10/22/2022 11:38 AM EDT) [facility] HIV Antigen/Antibody, 4th Generation NON-REAC TIVE NON-REAC TIVE [employer] [place] [facility] Comment: HIV-1 antigen and HIV-1/HIV-2 antibodies [...] ?? For additional information please refer to http://education.[employer]/faq/RQO123 (This link is being provided for informational/ educational purposes only.) The performance of this assay has not been clinically validated in patients less than 2 years old. Blood Venous blood specimen / Unknown 10/22/2022 11:38 AM EDT 10/22/2022 11:39 AM EDT Narrative [facility] - 10/26/2022 12:15 AM EDT FASTING:YES FASTING: YES us Supa Miguel ANP LAB BLOOD ORDERABLES Final Resul t Performing Organization Address [facility]/ZIP Co de Phone Number [facility] [address], [facility] [place] [address] [employer] [facility] 200 [place] [address] * Hm Colonoscopy (10/16/2022 11:44 AM EDT) Colonoscopy Normal Normal Germaine Ruiz MD HEALTH MAINTENANCE Final Result from Last 3 Months or Most Recently Relevant to Health Maintenance Insurance HSN PARTIAL AETNA PPO DENTAL - AETNA DENTAL PPO [place] Care Teams First Officer And Flight Instructor Relationship Specialty Start Date End Date Supa Miguel ANP [address] [place] [phone] PCP - General Family Medicine 05/31/22
--- OUTSIDE RECORDS SUMMARY | 2024-08-18 10:07 | XMS_ITS | Encounter Summary ---
Author Organization [employer] [facility] Address [address] [facility] 7t [place] [address] Care Team Providers Care Area Cleaner Name Role Phone Reyes Lugo MD Primary Care Provider Cha Navarro Primary Care Provider [phone] Encounter Details Date Type Department Care Team [...] on filedocumented in this encounter Care Teams Area Cleaner Relationship Specialty Start Date End Date Reyes Lugo MD PCP - General Family Medicine 02/12/19 05/30/22 Cha Morgan ANP 230 [place] [address] PCP - General Family Medicine 05/31/22 documented as of this encounter
--- OUTSIDE RECORDS SUMMARY | 2024-08-18 10:07 | XMS_ITS | Encounter Summary ---
Author Organization [employer] [facility] Address [address] [facility] 7t [place] [address] Care Team Providers Care Signal Apprentice Name Role Phone Reyes Lugo MD Primary Care Provider Cha Navarro Primary Care Provider [phone] Encounter Details Date Type Department Care Team [...] on filedocumented in this encounter Care Teams Signal Apprentice Relationship Specialty Start Date End Date Reyes Lugo MD PCP - General Family Medicine 02/12/19 05/30/22 Cha oMrgan ANP 230 [place] [address] PCP - General Family Medicine 05/31/22 documented as of this encounter
== END 2024-08-18 09:53 | disposition home or self-care (01) ==
PROVIDERS: PCP Nurse Practitioner Primary Care; Visit Provider Physician Assistant Surgical
DX: L98.7 Excessive and redundant skin and subcutaneous tissue (principal); Z90.3 Acquired absence of stomach [part of]; E66.3 Overweight
CPT/HCPCS: 99214; G2211

== ENCOUNTER → 2024-08-18 09:17 | Outpatient (BNVA) | payer OTHER, SELFPAY | PROVIDERS: PCP Nurse Practitioner Primary Care; Visit Provider Physician Assistant Surgical ==

== ENCOUNTER 2024-09-29 09:52 | Outpatient (AMB) | payer OTHER, SELFPAY ==
--- NOTE | 2024-09-29 09:32 | A.OFFVIS_ITS ---
VS Expanded 09/29/24 09:34 Height 5 ft 4 in Weight 177 lb BMI 30.4 Intake Visit Reasons: TV PO LSG/ excess skin Allergies seafood Allergy (Intermediate, Verified 08/18/24 09:24) rash/throat itchiness shellfish derived [SHELLFISH DERIVED] Allergy (Intermediate, Verified 08/18/24 09:24) RASH, THROAT ITCHINESS Medication List - Last Reconciled 09/29/24 by OMID Robbins cholecalciferol (vitamin D3) 25 mcg PO DAILY clotrimazole 1% 1 appl topical BID diclofenac sodium 1% 2 grams topical PRN famotidine 20 mg PO BID PRN fluoxetine 20 mg PO DAILY lansoprazole 30 mg PO DAILY trazodone 100 mg PO BEDTIME Zepbound (tirzepatide (weight loss)) 2.5 mg (0.5 mL) subcut QWEEK NS zinc gluconate 30 mg PO DAILY HPI Comments Details: Pt is s/p LSG 2018. Weight loss of 1lb since last OV. She does not follow a special meal plan for her Crohn's but tries to eat what does not cause flare ups/pain. She does not take any protein shakes or bars currently. Eats eggs, avocado, meat, sometimes rice. She has started exercise at the [facility]- takes classes a few days a week- cardio and weights. Pt presents today due to issues of excess skin of abdomen. She reports painful rashes in the skin fold. Moisture collects in the skin folds and smells unpleasant so she has to clean more frequently than usual. She has tried the clotrimazole ointment prescribed at last visit but this has not helped. Has to wear compressive waistband to hold skin in place to minimize discomfort. The excess skin is heavy and causes discomfort pulling on her torso/back. She finds that cleaning herself is more difficult due to having to move the excess skin out of the way. She finds that normal daily activities such as walking, bending, squatting can be more difficult due to the excess skin getting in the way. 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 She reports a previous umbilical hernia repair in the past- unsure if mesh was used but thinks so. We had tried to order Zepbound for her but was denied; we are in the process of appeal. COUNT INCLUDES [facility] Medical History ASCUS with positive high risk HPV cervical Crohn's disease GERD (gastroesophageal reflux disease) Surgical History Hx of gastric bypass Hx of colonoscopy History of esophagogastroduodenoscopy (EGD) Family History Mother Diabetes Breast cancer Brother Diabetes Brother Diabetes Father Colon cancer Social History Alcohol intake: never Patient Tobacco Use Status: Never used Tobacco Second Hand Smoke Exposure: No Female Reproductive History Menstrual Age of Menarche: 11 Telehealth Telehealth Telehealth Platform: Telephone Location of provider rendering services: other Location of patient: address on file Patient Identification confirmed using: Name, : Yes Telehealth method: voice only Patient verbally consented to treatment: Yes Patient verbally consented to billing insurance company: Yes Patient informed of any privacy concerns related to visit: Yes Minutes spent on Phone/Video with Pt.: 16 Assessment & Plan Assessment & Plan (1) Excess skin: Code(s): L98.7 - Excessive and redundant skin and subcutaneous tissue Category: Medical (2) Obesity: Code(s): E66.9 - Obesity, unspecified Category: Medical (3) Status post sleeve gastrectomy: Code(s): Z90.3 - Acquired absence of stomach [part of] Category: Surgical Plan Pt needs a better meal plan. Sent options via text for Fairlife or Orgain protein shakes. Pt will let me know which she purchases. Agreeable to a plan including 1-2 shakes, yogurt, and meat/veg. Awaiting Zepbound appeal; in the meantime she would like to try phentermine. Discussed risks and sending daily BP to me via text. Discussed risk of serotonin syndrome since she is on fluoxetine. RTC 6w. Medications: New phentermine must administer 2 hours after breakfast 30 mg PO DAILY 30 caps 0RF
[2024-09-29 09:34] VITALS: BMI 30.4
--- OUTSIDE RECORDS SUMMARY | 2024-09-29 10:38 | XMS_ITS | Encounter Summary ---
Author Organization [employer] Address [address] [place] [address] Care Team Providers Care Supervisor Public Health Nursing Name Role Phone Cha Morgan Primary Care Provider [phone] Reason for Visit * Reason Onset Date Comments Med Refill 06/05/2022 Encounter Details Date Type Department Care Team ([facility] st Contact Info) Description 06/05/2022 Telephone [facility] MEDICINE [address] [place], [place] [phone] Cha Morgan ANP [address] [place] [address] Med Refill Social History Tobacco Use Types [...] on filedocumented in this encounter Care Teams Supervisor Public Health Nursing Relationship Specialty Start Date End Date Cha Morgan ANP [address] [place] [address] PCP - General Family Medicine 05/31/22 documented as of this encounter
== END 2024-09-29 09:58 | disposition home or self-care (01) ==
LOC: HO.HBS 09:52
PROVIDERS: PCP Nurse Practitioner Primary Care; Visit Provider Physician Assistant Surgical
DX: L98.7 Excessive and redundant skin and subcutaneous tissue (principal); E66.9 Obesity, unspecified; Z68.30 Body mass index [BMI] 30.0-30.9, adult; Z90.3 Acquired absence of stomach [part of]; Z98.84 Bariatric surgery status
CPT/HCPCS: 98012

== ENCOUNTER → 2024-10-13 14:13 | Outpatient (BNVA) | payer OTHER, SELFPAY | PROVIDERS: PCP Nurse Practitioner Primary Care; Visit Provider Physician Assistant Surgical ==

== ENCOUNTER 2024-11-09 14:30 | Outpatient (AMB) | payer OTHER, SELFPAY ==
--- NOTE | 2024-11-09 14:33 | A.OFFVIS_ITS ---
VS Expanded 11/09/24 14:41 BP 116/55 L Blood Pressure Location Rt brachial Blood Pressure Position Sitting Pulse 61 Pulse Source Pulse Oximeter Temp 96.8 F Temperature Source Temporal Artery Scan Pulse Oximetry 95 Oxygen Delivery Method Room Air Height 5 ft 6 in Weight 178 lb 3.2 oz BMI 28.8 Body Fat % 43.4 Body Fat Mass 77.4 Fat Free Mass 100.8 Visceral Fat Rating 11.0 Body Water % 40.1 Body Water Mass 71.4 Muscle Mass/Score 95.6 Basal Metabolic Rate/Score 1,405 Intake Visit Reasons: (OV) POST OP LSG 2019/excess skin Allergies seafood Allergy (Intermediate, Verified 11/09/24 14:37) rash/throat itchiness shellfish derived (SHELLFISH DERIVED) Allergy (Intermediate, Verified 11/09/24 14:37) RASH, THROAT ITCHINESS Medication List - Last Reconciled 11/09/24 by OMID Robbins cholecalciferol (vitamin D3) 25 mcg PO DAILY clotrimazole 1% 1 appl topical BID diclofenac sodium 1% 2 grams topical PRN famotidine 20 mg PO BID PRN fluoxetine 20 mg PO DAILY lansoprazole 30 mg PO DAILY trazodone 100 mg PO BEDTIME zinc gluconate 30 mg PO DAILY HPI Comments Details: Pt is s/p LSG 2019. Weight loss of 1lb since last OV. She does not follow a special meal plan for her Crohn's but tries to eat what does not cause flare ups/pain. She does not take any protein shakes or bars currently. Eats eggs, avocado, meat, sometimes rice. At last visit I recommended a meal plan including the followin-2 shakes (Fairlife or Orgain), yogurt, and meat/veg She has started exercise at the [facility]- takes classes a few days a week- cardio and weights. Pt presents today due to issues of excess skin of abdomen. She reports painful rashes in the skin fold. Moisture collects in the skin folds and smells unpleasant so she has to clean more frequently than usual. She has tried the clotrimazole ointment prescribed at last visit but this has not helped. Has to wear compressive waistband to hold skin in place to minimize discomfort. The excess skin is heavy and causes discomfort pulling on her torso/back. She finds that cleaning herself is more difficult due to having to move the excess skin out of the way. She finds that normal daily activities such as walking, bending, squatting can be more difficult due to the excess skin getting in the way. 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 She reports a previous umbilical hernia repair in the past- unsure if mesh was used but thinks so. We had tried to order Zepbound for her and it was approved- due for a refill. [facility] Medical History ASCUS with positive high risk HPV cervical Crohn's disease GERD (gastroesophageal reflux disease) Surgical History Hx of gastric bypass Hx of colonoscopy History of esophagogastroduodenoscopy (EGD) Family History Mother Diabetes Breast cancer Brother Diabetes Brother Diabetes Father Colon cancer Social History Alcohol intake: never Patient Tobacco Use Status: Never used Tobacco Second Hand Smoke Exposure: No Female Reproductive History Menstrual Age of Menarche: 11 Physical Exam Vital Signs: Last Vital Signs Temp 96.8 F 11/09/24 14:41 Pulse 61 11/09/24 14:41 BP 116/55 L 11/09/24 14:41 Pulse Ox 95 11/09/24 14:41 Oxygen Delivery Method Room Air 11/09/24 14:41 BMI result Body Mass Index 28.8 Assessment & Plan Assessment & Plan (1) Obesity: Code(s): E66.9 - Obesity, unspecified Category: Medical (2) Status post sleeve gastrectomy: Code(s): Z90.3 - Acquired absence of stomach [part of] Category: Surgical (3) Excess skin: Code(s): L98.7 - Excessive and redundant skin and subcutaneous tissue Category: Medical Plan Will refill Zepbound at 5mg. Pt will continue high protein meal plan. She will communicate with me via text between appts. Continue clotrimazole ointment for rashes of excess skin of abdomen. RTC 3mo. Medications: New tirzepatide (weight loss) (Zepbound) 5 mg (0.5 mL) subcut QWEEK 2 mL 0RF
[2024-11-09 14:41] VITALS: BP 116/55; PULSE 61; TEMP 36; O2SAT 95; BMI 28.8
--- OUTSIDE RECORDS SUMMARY | 2024-11-09 15:23 | XMS_ITS | Patient Health Record ---
Author Organization [facility] Address [address] [place] [address] Care Team Providers Care Certified Forklift Operator Name Role Phone Drake Mendez MD Primary Care Provider Guzman Mccoy Unavailable [phone] Allergies Allergen (clinical drug ingredient) Drug/Non Drug Allergy documented on EMR Reaction Allergy Type Onset Date Status Seafood seafood (uncoded) Unknown Allergy Ac tive Reason For Referral No Information Medications Medication SIG (Take, Route, Fr equency, Duration) Notes Start Date End Date Status clonazePAM 1 MG (Schedule IV Drug) T CHRIS 1 TABLET BY MOUTH EVERY DAY AT BEDTIME Oral for 30 Active FLUoxetine HCl 20 MG TAKE ONE CAPSULE BY MOUTH EVERY DAY Oral for 30 Active PROzac 20 MG 1 capsule in the mor alis Orally Once a day Active metFORMIN HCl 1000 MG TAKE 1 TABLET TWIC E A DAY Oral for 30 Active Asacol HD 800 MG TAKE 1 TABLET BY TESSIE TH 3 TIMES A DAY Oral for 30 Active Problems Problem Type SNOMED Code ICD Code Onset Dates Problem Status W/U Status Risk Notes Problem [id number] Ulcerative colitis without complications, unspecified location (K51.90) Active confirmed Plan Of Treatment No Information Insurance Providers Payer Name Payer Address Payer Phone Subscriber Number Group Number Insured Name Patient Relationship to Insured Coverage Start Date Coverage End Date [facility] [employer] Plan [address] [address] [place], [place] [id number] IRMA NEUMANN Self - patient is the insured MEDICAID OF [employer] [facility] [address] [place] [address] [id number] IRMA NEUMANN Self - patient is the insured Medical (General) History Medical History History ICD Code NIDDM Denies [place],,CVA,Lung disease,renal diseas e Diagnosed with Ulcerative co litis in approx 2015 in [place]--she underwent a colonoscopy in July of 2015 in [place]--- this is described as a pancolitis on the colonoscopy report --started on Asacol with good relief Depression Surgical History Surgery Date(Month/Year) left foot-tendons right [id number] screw and plates i n foot 2009 umbilical hernia repair
--- OUTSIDE RECORDS SUMMARY | 2024-11-09 15:23 | XMS_ITS | Encounter Summary ---
Author Organization [employer] Address [address] [place] [address] Care Team Providers Care Shared Services And Outsourcing Manager Name Role Phone Cha Morgan Primary Care Provider [phone] Reason for Visit * Reason Onset Date Comments Med Refill 06/05/2022 Encounter Details Date Type Department Care Team ([facility] st Contact Info) Description 06/05/2022 Telephone [facility] MEDICINE [address] [place], [place] [phone] Cha Morgan ANP [address] [place] [address] Med Refill Social History Tobacco Use Types [...] on filedocumented in this encounter Care Teams Shared Services And Outsourcing Manager Relationship Specialty Start Date End Date Cha Morgan ANP [address] [place] [id number] PCP - General Family Medicine 05/31/22 documented as of this encounter
== END 2024-11-09 15:02 | disposition home or self-care (01) ==
LOC: HO.HBS 14:31
PROVIDERS: PCP Nurse Practitioner Primary Care; Visit Provider Physician Assistant Surgical
DX: E66.9 Obesity, unspecified (principal); Z90.3 Acquired absence of stomach [part of]; L98.7 Excessive and redundant skin and subcutaneous tissue
CPT/HCPCS: 99214; G2211

== ENCOUNTER 2025-02-16 12:58 | Outpatient (AMB) | payer OTHER, SELFPAY ==
--- NOTE | 2025-02-16 13:03 | A.OFFVIS_ITS ---
VS Expanded 02/16/25 13:14 BP 111/56 L Blood Pressure Location Rt brachial Blood Pressure Position Sitting Pulse 82 Pulse Source Pulse Oximeter Temp 97.9 F Temperature Source Temporal Artery Scan Pulse Oximetry 95 Oxygen Delivery Method Room Air Height 5 ft 4 in Weight 165 lb 6 oz BMI 28.4 Body Fat % 41 Body Fat Mass 68 Fat Free Mass 97.6 Visceral Fat Rating 10 Body Water % 41.7 Body Water Mass 69 Muscle Mass/Score 92.6 Basal Metabolic Rate/Score 1,352 Intake Visit Reasons: (OV) POST OP LSG 2019/excess skin Legislative Assistant Required: No Accompanied by: Self / Same As Patient Allergies seafood Allergy (Intermediate, Verified 02/16/25 13:09) rash/throat itchiness shellfish derived (SHELLFISH DERIVED) Allergy (Intermediate, Verified 02/16/25 13:09) RASH, THROAT ITCHINESS Medication List - Last Reconciled 02/16/25 by OMID Robbins cholecalciferol (vitamin D3) 25 mcg PO DAILY clotrimazole 1% 1 appl topical BID diclofenac sodium 1% 2 grams topical PRN famotidine 20 mg PO BID PRN fluoxetine 20 mg PO DAILY lansoprazole 30 mg PO DAILY tirzepatide (weight loss) (Zepbound) 12.5 mg (0.5 mL) subcut QWEEK trazodone 100 mg PO BEDTIME zinc gluconate 30 mg PO DAILY HPI Comments Details: Pt is s/p LSG 2019. Weight loss of 12.6lb since last OV 3 mo ago. She does not follow a special meal plan for her Crohn's but tries to eat what does not cause flare ups/pain. She does not take any protein shakes or bars currently. Eats eggs, avocado, meat, sometimes rice. At last visit I recommended a meal plan including the followin-2 shakes (Fairlife or Orgain), yogurt, and meat/veg She has started exercise at the [facility]- takes classes a few days a week- cardio and weights. Pt presents today due to issues of excess skin of abdomen. She reports painful rashes in the skin fold. Moisture collects in the skin folds and smells unpleasant so she has to clean more frequently than usual. She has tried the clotrimazole ointment prescribed at last visit but this has not helped. Has to wear compressive waistband to hold skin in place to minimize discomfort. The excess skin is heavy and causes discomfort pulling on her torso/back. She finds that cleaning herself is more difficult due to having to move the excess skin out of the way. She finds that normal daily activities such as walking, bending, squatting can be more difficult due to the excess skin getting in the way. 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 She reports a previous umbilical hernia repair in the past- unsure if mesh was used but thinks so. With increasing weight loss she has also noticed excess skin of upper arms. She experiences chafing due to excess skin rubbing against the torso. She has to wear longer sleeves at all times to cover the skin and prevent chafing. She excess skin of the arms is heavy, which pulls on her shoulder and makes it more difficult to raise her arms above her head. Skin can get pinched in clothing like in bra strap which is uncomfortable. [facility] Medical History ASCUS with positive high risk HPV cervical Crohn's disease GERD (gastroesophageal reflux disease) Surgical History Hx of gastric bypass Hx of colonoscopy History of esophagogastroduodenoscopy (EGD) Family History Mother Diabetes Breast cancer Brother Diabetes Brother Diabetes Father Colon cancer Social History Alcohol intake: never Patient Tobacco Use Status: Never used Tobacco Second Hand Smoke Exposure: No Female Reproductive History Menstrual Age of Menarche: 11 Physical Exam Vital Signs: Last Vital Signs Temp 97.9 F 02/16/25 13:14 Pulse 82 02/16/25 13:14 BP 111/56 L 02/16/25 13:14 Pulse Ox 95 02/16/25 13:14 Oxygen Delivery Method Room Air 02/16/25 13:14 BMI result Body Mass Index 28.4 Const General: cooperative, comfortable and no acute distress Orientation/consciousness: patient oriented x3 GI Other: soft, nontender, nondistended, incisions well healed, no hernia, no masses Grade II pannus Skin Other: excess skin of upper arms with max length 7cm on L, 6.5cm on R Neuro General: patient oriented x3 Assessment & Plan Assessment & Plan (1) Status post sleeve gastrectomy: Code(s): Z90.3 - Acquired absence of stomach [part of] Category: Surgical (2) Overweight: Code(s): E66.3 - Overweight Category: Medical (3) Excess skin: Code(s): L98.7 - Excessive and redundant skin and subcutaneous tissue Category: Medical Plan Pt given [employer] lory info. I encouraged her to download lory and follow a plan. She should at least be using 1 protein shake per day. Discussed the importance of this leading up to potential future surgery for recovery and healing. She indicates understanding. She is experiencing issues of excess skin of abdomen resulting in frequent painful, itchy, malodorous rashes which are unrelieved by topical antifungals. In addition she is experiencing limitations/discomfort in activities of daily living, including walking, bending. She requires the use of special clothing at all times to try to prevent discomfort but her issues have not been completely relieved by conservative measures. She would benefit from definitive treatment of panniculectomy. In addition she is experiencing difficulty with excess skin of upper arms resulting in painful chafing, the use of special clothing, and discomfort due to weight of excess skin. She would benefit from brachioplasty. RTC 3mo, or pt will text me if she achieves goal weight of 157lb prior to skin removal surgery.
[2025-02-16 13:14] VITALS: BP 111/56; PULSE 82; TEMP 36.6; O2SAT 95; BMI 28.4
--- OUTSIDE RECORDS SUMMARY | 2025-02-16 16:34 | XMS_ITS | Encounter Summary ---
Author Organization [employer] Address [address] [address]t [place] [address] Care Team Providers Care Curriculum And Assessment Director Name Role Phone Reyes Lugo MD Primary Care Provider Cha Navarro Primary Care Provider [phone] Encounter Details Date Type Department Care Team (Latest Contact Info) Description 12/25/2018 Abstract [facility] CONVERSIONS Dental, Provider, DDS Social History [...] Care Team (Late st Contact Info) Description 05/31/2025 10:00 AM EST Office Visit [facility] OPTOMETRY [address] [place] [address] Nerissa Graves, OD [address] [place] [address] documented as of this encounter Visit Diagnoses Not on filedocumented in this encounter Care Teams Curriculum And Assessment Director Relationship Specialty Start Date End Date Reyes Lugo MD PCP - General Family Medicine 02/12/19 05/30/22 Cha Morgan ANP [address] [place] [address] PCP - General Family Medicine 05/31/22 documented as of this encounter
--- OUTSIDE RECORDS SUMMARY | 2025-02-16 16:34 | XMS_ITS | Encounter Summary ---
Author Organization [email or web address] Address [address] [place] [address] Care Team Providers Care Academic Director Name Role Phone Cha Morgan Primary Care Provider [phone] Reason for Visit * Reason Onset Date Comments Med Refill 06/05/2022 Encounter Details Date Type Department Care Team ([facility] st Contact Info) Description 06/05/2022 Telephone [facility] MEDICINE [address] [place], [place] [phone] Cha Morgan ANP [address] [place] [address] Med Refill Social History Tobacco Use Types [...] Description 05/31/2025 10:00 AM EST Office Visit [facility] OPTOMETRY [address] [place], [place] [phone] Nerissa Graves, OD [address] [place] [address] documented as of this encounter Visit Diagnoses Not on filedocumented in this encounter Care Teams Academic Director Relationship Specialty Start Date End Date Cha Morgan ANP [address] [place] [id number] PCP - General Family Medicine 05/31/22 documented as of this encounter
--- OUTSIDE RECORDS SUMMARY | 2025-02-16 16:34 | XMS_ITS | Encounter Summary ---
Author Organization [employer] Address [address] [facility] [place] [address] Care Team Providers Care Medical Care Manager Name Role Phone Reyes Lugo MD Primary Care Provider Cha Navarro Primary Care Provider [phone] Encounter Details Date Type Department Care Team (Latest Contact Info) Description 10/05/2020 Abstract [facility] CONVERSIONS Dental, Provider, DDS Social History Tobacco [...] Description 05/31/2025 10:00 AM EST Office Visit [facility] OPTOMETRY [address] [place] [address] Nerissa Graves OD [address] [place] [address] documented as of this encounter Visit Diagnoses Not on filedocumented in this encounter Care Teams Medical Care Manager Relationship Specialty Start Date End Date Reyes Lugo MD PCP - General Family Medicine 02/12/19 05/30/22 Cha Morgan ANP [address] [place] [address] PCP - General Family Medicine 05/31/22 documented as of this encounter
--- OUTSIDE RECORDS SUMMARY | 2025-02-16 16:35 | XMS_ITS | Encounter Summary ---
Author Organization [employer] Address [address] [facility] [address]t [place] [address] Care Team Providers Care Performance Test Consultant Name Role Phone Reyes Lugo MD Primary Care Provider Cha Navarro Primary Care Provider [phone] Encounter Details Date Type Department Care Team (Latest Contact Info) Description 02/14/2022 Abstract [facility] CONVERSIONS Dental, Provider, DDS Social History [...] Description 05/31/2025 10:00 AM EST Office Visit [facility] OPTOMETRY [address] [place] [address] Nerissa Graves OD [address] [place] [address] documented as of this encounter Visit Diagnoses Not on filedocumented in this encounter Care Teams Performance Test Consultant Relationship Specialty Start Date End Date Reyes Lugo MD PCP - General Family Medicine 02/12/19 05/30/22 Cha Morgan ANP [address] [place] [id number] PCP - General Family Medicine 05/31/22 documented as of this encounter
--- OUTSIDE RECORDS SUMMARY | 2025-02-16 16:35 | XMS_ITS | Encounter Summary ---
Author Organization [employer] Address [address] [facility] 7t [place] [address] Care Team Providers Care Tower Control Operator Name Role Phone Reyes Lugo MD Primary Care Provider Cha Navarro Primary Care Provider [phone] Encounter Details Date Type Department Care Team (Latest Contact Info) Description 08/09/2021 Abstract [facility] CONVERSIONS Dental, Provider, DDS Social History [...] Description 05/31/2025 10:00 AM EST Office Visit [facility] OPTOMETRY [address] [place] [address] Nerissa Graves OD [address] [place] [address] documented as of this encounter Visit Diagnoses Not on filedocumented in this encounter Care Teams Tower Control Operator Relationship Specialty Start Date End Date Reyes Lugo MD PCP - General Family Medicine 02/12/19 05/30/22 Cha Morgan ANP [address] [place] [address] PCP - General Family Medicine 05/31/22 documented as of this encounter
--- OUTSIDE RECORDS SUMMARY | 2025-02-16 16:35 | XMS_ITS | Clinical Summary ---
Author Organization [employer] Address [address] 7[address] [place] [address] Care Team Providers Care Liquor Runner Name Role Phone Supa Miguel Primary Care Provider [phone] Allergies Active Allergy Reactions Criticality Noted Date Comments Shellfish Allergy 10/30/2022 Medications Diclofenac Sodium 1 % gelIndications:Id iopathic osteoarthritis APPLY 2 GRAMS TOPICALLY UP TO FOUR TIMES DAILY NEEDED FOR PAIN OR swelling 100 g 2 023 Active acetaminophen (Tylenol) 500 MG tablet Take 2 tablets (1,000 mg) by mouth every 6 (six) hours if needed for moderate pain or fever. 30 tablet 024 Active lidocaine (Lidoderm) 5 % patch Apply 1 patch topically Once per day. Remove & discard patch within 12 hours or as directed by MD. 30 patch 2 024 2024 Active lidocaine-priloca ine (Emla) 2.5-2.5 % cream Apply topically if needed in the morning and at bedtime for moderate pain. 30 g 024 Active clonazePAM (KlonoPIN) 1 MG tabletIndications :Anxiety with flying 1 tablet 30-60min before flight 4 tablet 024 Active Additional Information Patient not taking.Reason: Pt no longer taking, Reported on 11/23/2024 famotidine (Pepcid) 20 MG tabletIndications :Heartburn TAKE 1 TABLET BY MOUTH TWICE DAILY NEEDED 40 tablet 025 Active traZODone (Desyrel) 100 MG tabletIndications :Insomnia, unspecified type TAKE 1 TABLET BY MOUTH EVERY DAY AT BEDTIME 90 tablet 1 025 Active FLUoxetine (PROzac) 20 MG capsule TAKE 1 CAPSULE BY MOUTH EVERY DAY IN THE MORNING 90 capsule 1 025 Active omeprazole (PriLOSEC) [address] capsuleIndication s:Heartburn TAKE 1 CAPSULE BY MOUTH 30 MINUTES BEFORE entyvio infusion FOR HEARTBURN. DO NOT BREAK, CRUSH, DISSOLVE OR CHEW 45 capsule 1 025 Active Vedolizumab (ENTYVIO IV) Infuse into a venous catheter. Every 2 mos IV via [facility] 2024 Discontinued(T herapy completed) omeprazole (PriLOSEC) [address] capsuleIndication s:Heartburn TAKE 1 CAPSULE BY MOUTH 30 MINUTES BEFORE entyvio infusion FOR HEARTBURN. DO NOT BREAK, CRUSH, DISSOLVE OR CHEW 45 capsule 1 025 2024 Discontinued Active Problems Problem Noted Date Diagnosed Date Dental calculus 11/23/2024 Dental plaque 11/23/2024 Periodontal disease 11/23/2024 Missing teeth, acquired 11/23/2024 Elevated hemoglobin A1c 12/19/2022 Overview (12/19/2022): 6.1% on 10/2022 labs Erosive (osteo)arthritis 12/19/2022 History of repair of hiatal hernia 12/19/2022 Crohn's disease without complication ([facility]) 0 10/18/2022 Overview (12/19/2022): Follows w/ Dr. Ruiz Monthly Entyvio infusions EGD and colonoscopy 07/2022 Degeneration of cervical intervertebral disc 05/2022 Insomnia 09/02/2022 Rosacea 07/23/2018 Idiopathic osteoarthritis 01/29/2018 Acquired leg length discrepancy 05/02/2017 Mood disorder 05/02/2017 Encounters Date Type Department Care Team Description 01/21/2025 Refill [facility] [address] [place] [address] Supa Miguel ANP Heartburn 01/18/2025 10:00 AM EDT Office Visit [facility] [address] [place], [place] [phone] Cirilo Mercedes MD Influenza-like symptoms (Primary Dx) 01/18/2025 Travel 11/23/2024 8:00 AM EDT Office Visit [facility] [address] [place] [address] Mere Marvin Dental calculus (Primary Dx); Dental plaque; Periodontal disease; Missing teeth, acquired from Last 3 Months Immunizations Immunization Administration Dates Next Due Influenza injectable quadriv [...] Sign Reading Time Taken Comments Blood Pressure 114/64 01/18/2025 10:30 AM EDT Pulse 70 01/18/2025 10:30 AM EDT Temperature 36.7 C (98 F) 01/18/2025 10:30 AM EDT Respiratory Rate 18 01/18/2025 10:30 AM EDT Oxygen Saturation 98% 01/18/2025 10:30 AM EDT Inhaled Oxygen Concentration - - Weight 78.1 kg (172 lb 3.2 oz) 01/18/2025 10:30 AM EDT Height 162.6 cm (5' 4 ) 02/18/2024 10:12 AM EDT Body Mass Index 29.56 02/18/2024 10:12 AM EDT Plan of Treatment Upcoming Encounters Date Type Department Care Team (Late st Contact Info) Description 05/31/2025 10:00 AM EST Office Visit [facility] [address] [place] [address] Nerissa Graves, OD [address] [place] [address] Health Maintenance Due Date Last Done Comments CT Colonography 1965 FIT DNA/Cologuard 1965 FIT 1965 FOBT 1965 Sigmoidoscopy 1965 Disability Screening 1965 Alcohol/Substance Use Screening 1975 Mammogram 12/25/2024 12/26/2023, 11/03, 11/29/2022, Additional history exists COVID-19 Vaccine ( season) 2025 04/04/2023, 05/28/2022, 02/28/2021, Additional history exists Influenza Vaccine (#1) 2025 , 02/18/2022, 02/28/2021, Additional history exists Depression Screening 01/12/2025 01/13/2024, 01/13/20 SDOH Screening 01/12/2025 01/13/2024 Cervical Cancer Screening 03/24/2025 HPV/Cotest 03/24/2025 10/30/2022, 10/30/2022 Pap Smear 03/24/2025 03/24/2024, 10/30/2022 Dental Oral Exam 05/27/2025 11/23/2024, , 02/14/2022, Additional history exists Dental Prophylaxis 05/27/2025 11/23/2024, 1 05/18/2023, 07/24/2023, Additional history exists Dental X-Ray: Bitewings 11/24/2025 11/24/19, 07/24/2023, 02/14/2022, Additional history exists Tobacco Screening 01/18/2026 01/18/2025 Dental X-Ray: Full Mouth 10/06/2026 10/05/2020, 11/01/2017 [...] patient's age to complete this topic Meningococcal B Vaccine Aged Out No l onger eligible based on patient's age to complete [...] Procedure Name Priority Date/Time Associated Diagnosis Comments POCT INFLUENZA B (ID NOW RAPID MOLECULAR) Routine 01/18/2025 11:14 AM EDT Influenza-like symptoms POCT INFLUENZA A (ID NOW RAPID MOLECULAR) Routine 01/18/2025 11:14 AM EDT Influenza-like symptoms POCT RAPID STREP A Routine 01/18/2025 11 :14 AM EDT Influenza-like symptoms POCT RAPID COVID ANTIGEN Routine 01/18/2025 11:14 AM EDT Influenza-like symptoms PERIODIC ORAL EVALUATION - ESTABLISHED PATIENT Routine 11/23/2024 8:00 AM EDT ORAL HYGIENE INSTRUCTIONS Routine 11/23/2024 8:00 AM EDT Dental calculus Dental plaque Periodontal disease Missing teeth, acquired PROPHYLAXIS - ADULT Routine 11/23/2024 8 :00 AM EDT Dental calculus Dental plaque Periodontal disease 24,25 INTRAORAL - PERIAPICAL EACH ADDITIONAL RADIOGRAPHIC IMAGE Routine 11/23/2024 8:00 AM EDT Dental calculus Dental plaque Periodontal disease Missing teeth, acquired 8,9 INTRAORAL - PERIAPICAL FIRST RADIOGRAPHIC IMAGE Routine 11/23/2024 8:00 AM EDT Dental calculus Dental plaque Periodontal disease Missing teeth, acquired BITEWINGS - 4 RADIOGRAPHIC IMAGES Routine 11/23/2024 8:00 AM EDT Dental calculus Dental plaque Periodontal disease Missing teeth, acquired PAP SMEAR Routine 03/24/2024 9:51 AM EST BI MAMMOGRAM SCREENING TOMOSYNTHESIS BILATERAL Routine 12/26/2023 10:30 AM EDT HPV GENOTYPES 16,18/45 Routine 10:41 [...] Recently Relevant to Health Maintenance Results * Influenza B (ID NOW Rapid Molecular) (01/18/2025 11:14 AM EDT) Influenza B Negative Negative, Indeterminate [facility] Swab 01/18/2025 11:1 4 AM EDT us Cirilo Mercedes MD POINT OF CARE TEST ENTER/EDIT OR DERABLES Final Result Performing Organization Address [facility] Co de Phone Number [facility] [address] [place] [phone] * Influenza A (ID NOW Rapid Molecular) (01/18/2025 11:14 AM EDT) Influenza A Negative Negative, Indeterminate [facility] Swab 01/18/2025 11:1 4 AM EDT us Cirilo Mercedes MD POINT OF CARE TEST ENTER/EDIT OR DERABLES Final Result Performing Organization Address [facility]/ZIP Co de Phone Number [facility] [address] [place] [address] [phone] * POCT Rapid COVID Ag (01/18/2025 11:14 AM EDT) Rapid COVID Ag Negative [facility] Swab 01/18/2025 11:1 4 AM EDT us Cirilo Mercedes MD POINT OF CARE TEST ENTER/EDIT OR DERABLES Final Result Performing Organization Address [facility] Co de Phone Number [facility] [address] [place] [address] [phone] * POCT rapid strep A manually resulted (01/18/2025 11:14 AM EDT) [facility] Rapid Strep A Screen Negative Negative, None Detected [facility] Swab 01/18/2025 11:1 4 AM EDT us Cirilo Mercedes MD POINT OF CARE TEST ENTER/EDIT OR DERABLES Final Result Performing Organization Address [facility] de Phone Number [facility] [address] [place] [phone] * Pap Smear (03/24/2024 9:51 AM EST) 03/24/2024 9:51 AM EST 03/25/2024 8:50 AM EST Narrative [facility] - 04/02/2024 12:09 PM EST ----- ------- Name: Emma Rivera Age/Sex: 58/F : 1965 Unit#: [id number] Attend Dr: Robert Lind MD Re03/24/24 Status: DEP REF Location: [facility] Disch: ----- ------- SPEC : [id number] RECD: 03/25/24 STATUS: KEYSHA SUMNER NUM: [id number] BONIFACIO: 03/24/[address]: Robert Lind MD ENTERED: 03/25/24 SP TYPE: Pap Smr OTHR DR: SUPA MIGUEL NP ORDERED: Pap Smear, PAP path review Interpretation ABNORMAL PAP TEST. Satisfactory for evaluation, with atypical squamous cells of undetermined significance (ASC-US). HPV High Risk: Negative HPV Genotyping 16: Negative HPV Genotyping 18: Negative Clinical Information LMP: Postmenopausal Previous PAP test: 12/2022, ASCUS, HPV + Material Received ThinPrep-Cervical Copies To: SUPA MIGUEL NP [address] [place], [place] [phone] Robert Lind MD [facility] [address] [place] [address] [address] [place] [address] ----- ------- Signed (signature on file) Gabino Martinez MD 04/02/24 1209 ----- ------- END OF REPORT us Generic External Data Provider LAB CYTOLOGY TALAT LERMA Final Result [facility] [address] [place] [phone] * BI Mammogram Screening Tomosynthesis Bilateral (12/26/2023 10:30 AM EDT) Anatomical Region Laterality Modality Breast Bilateral Mammography 12/26/2023 10:3 0 AM EDT Narrative 01/22/2024 10:25 PM EDT [address] [place] [address] Mammography Report Signed Patient: Emma Rivera MR#: [id number] 1 : 1965 Acct:[id number] Age/Sex: 58 / F ADM Date: 12/26/23 Loc: HO.MAMMO Attending Dr: Supa Miguel NP Ordering Physician: SUPA MIGUEL NP Results: 1Negative Date of Service: 12/26/23 Follow Up: 1 Year From Orig ina Mammogram Procedure(s): MM tomosynthesis screening BI Accession Number(s): [id number] cc: SUPA MIGUEL NP EXAMINATION: MM SCREENING [...] 01/22/24 2222 DD/ 1030 TD/TT: 12/26/23 1048 Entry Level Automotive Technician: Procedure Note Donotuseinterpreter, Image - 01/22/2024 [facility] [address] [place] [place] [address] Mammography Report Signed Patient: Patria Rivera#: [id number] 1 : 1965Acct:[id number] Age/Sex: 58 / FADM Date: 12/26/23 Loc: [facility] Attending Dr: Supa Miguel NP Ordering Physician: SUPA MIGUEL NPResults: 1Negative Date of Service: 12/26/23Follow Up: 1 Year From Orig inal Mammogram Procedure(s): MM tomosynthesis screening BI Accession Number(s): [id number] cc: SUPA MIGUEL NP EXAMINATION: MM SCREENING [...] 01/22/24 2222 DD/ 1030 TD/TT: 12/26/23 1048 Entry Level Automotive Technician: us Supa PALACIOS IMG BI PROCEDURES Final Result * HPV Genotypes 16,18/45 (10/30/2022 10:41 AM EDT) HPV 16 RNA NOT DETECTED NOT DETECTED [facility] [place] [facility] HPV 18/45 RNA NOT DETECTED NOT DETECTED [facility] [place] [facility] Comment: Methodology: Flat Finisher Mediated Amplification Cervical sources are required for HPV testing. If a vaginal source from a patient who has had a total hysterectomy with removal of cervix was submitted, please contact the testing laboratory for alternative testing options. 10/30/2022 10:4 1 AM EDT 10/31/2022 1:23 AM EDT Nataly Dior [facility] CYTOLOGY ORDERABLES F inal Result [facility] [address], [place] [address] [facility] [address] [place] [address] * Hepatitis C Antibody with Reflex to HCV, RNA, Quantitative, Real-Time PCR (10/22/2022 11:38 AM EDT) Hepatitis C Antibody NON-REACT GARRISON NON-REACT GARRISON [facility] [place] [facility] Comment: HCV antibody was non-reactive. There is no laboratory evidence of HCV infection. In most cases, no further action is required. However, if recent HCV exposure is suspected, a test for HCV RNA (test code 54737) is suggested. For additional information please refer to http://education.Tehnologii obratnyh zadach/faq/UHM23k0 (This link is being provided for informational/ educational purposes only.) Blood Venous blood specimen / Unknown 10/22/2022 11:38 AM EDT 10/22/2022 11:39 AM EDT Narrative [facility] - 10/26/2022 12:15 AM EDT FASTING:YES FASTING: YES Supa Miguel ANP LAB BLOOD ORDERABLES Final Resul t Performing Organization Address [facility] de Phone Number [address], [place] [address] [facility] [place] [facility] [address] [place] [address] * HIV-1/2 Antigen and Antibodies, Fourth Generation, with Reflexes (10/22/2022 11:38 AM EDT) [facility] HIV Antigen/Antibody, 4th Generation NON-REAC TIVE NON-REAC TIVE [facility] Comment: HIV-1 antigen and HIV-1/HIV-2 antibodies were not detected. There is no laboratory evidence of HIV infection. PLEASE NOTE: This information has been disclosed to you from records whose confidentiality may be protected by state law. If your state requires such protection, then the state law prohibits you from making any further disclosure of the information without the specific written consent of the person to whom it pertains, or as otherwise permitted by law. A general authorization for the release of medical or other information is NOT sufficient for this purpose. For additional information please refer to http://education.Oxxy.Demandware/faq/KMG848 (This link is being provided for informational/ [...] ORDERABLES Final Resul t Performing Organization Address [facility] Co de Phone Number [address], [place] [address] [facility] [address] [place] [address] * Hm Colonoscopy (10/16/2022 11:44 AM EDT) Colonoscopy Normal Normal Germaine Ruiz MD HEALTH MAINTENANCE Final Result from Last 3 Months or Most Recently Relevant to Health Maintenance Insurance [employer] PPO DENTAL - [employer] DENTAL PPO [place] Care Teams Liquor Runner Relationship Specialty Start Date End Date Supa Miguel ANP [address] [place] [phone] PCP - General Family Medicine 05/31/22
--- OUTSIDE RECORDS SUMMARY | 2025-02-16 16:35 | XMS_ITS | Patient Health Record ---
Author Organization [facility] Address [address] [place] [address] Care Team Providers Care Spiral Winder Name Role Phone Vanessa (RETIRED) Drake MICHAELS Primary Care Provide Guzman Latham Unavailable [phone] Allergies Allergen (clinical drug ingredient) Drug/Non Drug Allergy documented on EMR Reaction Allergy Type Onset Date Status Seafood seafood (uncoded) Unknown Allergy Ac tive Reason For Referral No Information Medications Medication SIG (Take, Route, Fr equency, Duration) Notes Start Date End Date Status clonazePAM 1 MG (Schedule IV Drug) T CHRIS 1 TABLET BY MOUTH EVERY DAY AT BEDTIME Oral; Duration: 30 Activ e FLUoxetine HCl 20 MG TAKE ONE CAPSULE BY MOUTH EVERY DAY Oral; Duration: 30 Act fortunato PROzac 20 MG 1 capsule in the mor alis Orally Once a day Active metFORMIN HCl 1000 MG TAKE 1 TABLET TWIC E A DAY Oral; Duration: 30 Active Asacol HD 800 MG TAKE 1 TABLET BY TESSIE TH 3 TIMES A DAY Oral; Duration: 30 Active Problems Problem Type SNOMED Code ICD Code Onset Dates Problem Status W/U Status Risk Notes Problem Ulcerative colitis (15842671) Ulcerative colitis without complications, unspecified location (K51.90) Active confirmed Plan Of Treatment No Information Insurance Providers Payer Name Payer Address Payer Phone Subscriber Number Group Number Insured Name Patient Relationship to Insured Coverage Start Date Coverage End Date [facility] [employer] Plan [address] [address] [place], [place] [id number] IRMA NEUMANN Self - patient is the insured MEDICAID OF [employer] [address] [place] [address] [phone] [id number] IRMA NEUMANN Self - patient is the insured Medical (General) History Medical History History ICD Code NIDDM Denies UT,,CVA,Lung disease,renal diseas e Diagnosed with Ulcerative co litis in 2015 in [place]--she underwent a colonoscopy in July of 2015 in [place]--- this is described as a pancolitis on the colonoscopy report --started on Asacol with good relief Depression Surgical History Surgery Date(Month/Year) left foot-tendons right yfto-uajhka-xpu screw and plates i n foot 2009 umbilical hernia repair
--- OUTSIDE RECORDS SUMMARY | 2025-02-16 16:35 | XMS_ITS | Encounter Summary ---
Author Organization [employer] Address [address] [place] [address] Care Team Providers Care Separating Machine Operator Name Role Phone Cha Morgan Primary Care Provider [phone] Encounter Details Date Type Department Care Team ([facility] st Contact Info) Description 03/19/2024 Orders Only [facility] [address] [place], [place] [phone] Cha Morgan ANP [address] [place] [address] Social History Tobacco Use Types Packs/Day Years [...] Description 05/31/2025 10:00 AM EST Office Visit [facility] [address] [place] [address] Nerissa Graves, OD [address] [place] [address] documented as of this encounter Visit Diagnoses Not on filedocumented in this encounter Additional Health Concerns Assessment Noted Time PHQ-9 Depression Total Score: 0 01/13/20 24 10:34 AM EDT documented as of this encounter Care Teams Separating Machine Operator Relationship Specialty Start Date End Date Cha Morgan ANP [address] [place] [address] PCP - General Family Medicine 05/31/22 documented as of this encounter
== END 2025-02-16 13:54 | disposition home or self-care (01) ==
LOC: HO.HBS 12:59
PROVIDERS: PCP Nurse Practitioner Primary Care; Visit Provider Physician Assistant Surgical
DX: E66.3 Overweight (principal); Z68.28 Body mass index [BMI] 28.0-28.9, adult; L98.7 Excessive and redundant skin and subcutaneous tissue; Z90.3 Acquired absence of stomach [part of]; Z98.84 Bariatric surgery status
CPT/HCPCS: 99214; G2211

== ENCOUNTER 2025-03-04 13:40 | Outpatient (REF) | payer OTHER, SELFPAY ==
--- NOTE | ~2025-03-04 | MM_ITS ---
EXAMINATION: MM SCREENING DIGITAL BREAST TOMOSYNTHESIS, BILATERAL CLINICAL INFORMATION: Screening. Asymptomatic. COMPARISON: Mammography: Comparison is made with available priors TECHNIQUE: Digital breast mammography with tomosynthesis is performed in both the craniocaudal and mediolateral oblique views along with computer-aided detection (CAD). FINDINGS: There are scattered areas of fibroglandular density. There are no significant masses, abnormal calcifications, or other abnormalities. MM/MM tomosynthesis screening BI IMPRESSION: No mammographic evidence of malignancy. ASSESSMENT: BI-RADS Category 1: Negative RECOMMENDATION: Routine annual mammography screening. 1 year F/U This examination should not preclude the clinical evaluation of a suspicious palpable abnormality. This patient's information was entered into a reminder system with a target due date for their next mammogram. Electronically signed by: Debra Ramirez DO 03/08/2025 12:06 PM JAMISON
--- OUTSIDE RECORDS SUMMARY | 2025-03-04 14:36 | XMS_ITS | Encounter Summary ---
Author Organization [employer] Address [address] [facility] [address] 7t [place] [address] Care Team Providers Care Instructional Technology Specialist Name Role Phone Reyes Lugo MD Primary Care Provider Cha Navarro Primary Care Provider [phone] Encounter Details Date Type Department Care Team (Latest Contact Info) Description 10/05/2020 Abstract [facility] CONVERSIONS Dental, Provider, DDS Social [...] Description 05/31/2025 10:00 AM EST Office Visit [facility] [address] [place] [address] Nerissa Graves OD [address] [place] [address] documented as of this encounter Visit Diagnoses Not on filedocumented in this encounter Care Teams Instructional Technology Specialist Relationship Specialty Start Date End Date Reyes Lugo MD PCP - General Family Medicine 02/12/19 05/30/22 Cha Morgan ANP [address] [place] [address] PCP - General Family Medicine 05/31/22 documented as of this encounter
--- OUTSIDE RECORDS SUMMARY | 2025-03-04 14:36 | XMS_ITS | Encounter Summary ---
Author Organization [employer] Address [address] [place] [address] Care Team Providers Care Chemical Laboratory Tester Name Role Phone Cha Morgan Primary Care Provider [phone] Reason for Visit * Reason Onset Date Comments Med Refill 06/05/2022 Encounter Details Date Type Department Care Team ([facility] st Contact Info) Description 06/05/2022 Telephone [facility] [address] [place], [place] [phone] Cha Morgna ANP [address] [place] [address] Med Refill Social History Tobacco Use Types [...] Description 05/31/2025 10:00 AM EST Office Visit [facility] [address] [place], [place] [phone] Nerissa Graves, OD [address] [place] [address] documented as of this encounter Visit Diagnoses Not on filedocumented in this encounter Care Teams Chemical Laboratory Tester Relationship Specialty Start Date End Date Cha Morgan ANP [address] [place] [address] PCP - General Family Medicine 05/31/22 documented as of this encounter
--- OUTSIDE RECORDS SUMMARY | 2025-03-04 14:37 | XMS_ITS | Encounter Summary ---
Author Organization [employer] Address [address] [facility] 7t [place] [address] Care Team Providers Care Aircraft Cleaning Supervisor Name Role Phone Reyes Lugo MD Primary Care Provider Cha Navarro Primary Care Provider [phone] Encounter Details Date Type Department Care Team (Latest Contact Info) Description 02/14/2022 Abstract [facility] CONVERSIONS Dental, Provider, DDS Social History [...] Description 05/31/2025 10:00 AM EST Office Visit [facility] [address] [place] [address] Nerissa Graves OD [address] [place] [address] documented as of this encounter Visit Diagnoses Not on filedocumented in this encounter Care Teams Aircraft Cleaning Supervisor Relationship Specialty Start Date End Date Reyes Lugo MD PCP - General Family Medicine 02/12/19 05/30/22 Cha Morgan ANP [address] [place] [address] PCP - General Family Medicine 05/31/22 documented as of this encounter
--- OUTSIDE RECORDS SUMMARY | 2025-03-04 14:37 | XMS_ITS | Encounter Summary ---
Author Organization [employer] Address [address] [place] [address] Care Team Providers Care Nuclear Weapons Mechanical Specialist Name Role Phone Cha Morgan Primary Care Provider [phone] Reason for Visit * Reason Comments Med Refill Encounter Details Date Type Department Care Team ([facility] st Contact Info) Description 02/27/2025 Refill [facility] [address] [place], [place] [phone] Cha Morgan ANP [address] [place] [address] Insomnia, unspecified type Social History Tobacco Use Types Packs/Day Years [...] Description 05/31/2025 10:00 AM EST Office Visit [facility] [address] [place] [address] Tarka, Nerissa, OD [address] [place] [address] documented as of this encounter Visit Diagnoses Diagnosis Insomnia, unspecified type documented in this encounter Additional Health Concerns Assessment Noted Time PHQ-9 Depression Total Score: 0 01/13/20 24 10:34 AM EDT documented as of this encounter Care Teams Nuclear Weapons Mechanical Specialist Relationship Specialty Start Date End Date Cha Morgan ANP [address] [place] [phone] PCP - General Family Medicine 05/31/22 documented as of this encounter
--- OUTSIDE RECORDS SUMMARY | 2025-03-04 14:37 | XMS_ITS | Encounter Summary ---
Author Organization [employer] Address [address] [facility] 7t [place] [address] Care Team Providers Care Screen Repairer Crusher Name Role Phone Reyes Lugo MD Primary Care Provider Cha Navarro Primary Care Provider [phone] Encounter Details Date Type Department Care Team (Latest Contact Info) Description 08/09/2021 Abstract [facility] CONVERSIONS Dental, Provider, DDS Social [...] Description 05/31/2025 10:00 AM EST Office Visit [facility] [address] [place] [address] Nerissa Graves OD [address] [place] [address] documented as of this encounter Visit Diagnoses Not on filedocumented in this encounter Care Teams Screen Repairer Crusher Relationship Specialty Start Date End Date Reyes Lugo MD PCP - General Family Medicine 02/12/19 05/30/22 Cha Morgan ANP [address] [place] [phone] PCP - General Family Medicine 05/31/22 documented as of this encounter
--- OUTSIDE RECORDS SUMMARY | 2025-03-04 14:37 | XMS_ITS | Encounter Summary ---
Author Organization [employer] Address [address] [facility] 7t [place] [address] Care Team Providers Care Search Manager Name Role Phone Reyes Lugo MD Primary Care Provider Cha Navarro Primary Care Provider [phone] Encounter Details Date Type Department Care Team (Latest Contact Info) Description 12/25/2018 Abstract [facility] CONVERSIONS Dental, Provider, DDS Social History Tobacco [...] 10:00 AM EST Office Visit [facility] OPTOMETRY [address] [place] [address] Nerissa Graves, OD [address] [place] [address] documented as of this encounter Visit Diagnoses Not on filedocumented in this encounter Care Teams Search Manager Relationship Specialty Start Date End Date Reyes Lugo MD PCP - General Family Medicine 02/12/19 05/30/22 Cha Morgan ANP [address] [place] [phone] PCP - General Family Medicine 05/31/22 documented as of this encounter
--- OUTSIDE RECORDS SUMMARY | 2025-03-04 14:37 | XMS_ITS | Patient Health Record ---
Author Organization [facility] Address [address] [place] [address] Care Team Providers Care Dishroom Attendant Name Role Phone Vanessa (RETIRED) Drake MICHAELS Primary Care Provide Guzman Latham Unavailable [phone] Allergies Allergen (clinical drug ingredient) Drug/Non Drug [...] W/U Status Risk Notes Problem Ulcerative colitis (53653386) Ulcerative colitis without complications, unspecified location (K51.90) Active confirmed Plan Of Treatment No Information Insurance Providers Payer Name Payer Address Payer Phone Subscriber Number Group Number Insured Name Patient Relationship to Insured Coverage Start Date Coverage End Date [facility] [employer] Plan [address] [address] [place], [place] [id number] IRMA NEUMANN Self - patient is the insured MEDICAID OF [employer] [address] [place] [address] [phone] [id number] IRMA NEUMANN Self - patient is the insured Medical (General) History Medical History History ICD Code NIDDM Denies NM,,CVA,Lung disease,renal diseas e Diagnosed with Ulcerative co litis in 2015 in [place]--she underwent a colonoscopy in July of 2015 in [place]--- this is described as a pancolitis on the colonoscopy report --started on Asacol with good relief Depression Surgical History Surgery Date(Month/Year) left foot-tendons right [id number] screw and plates i n foot 2009 umbilical hernia repair
--- OUTSIDE RECORDS SUMMARY | 2025-03-04 14:37 | XMS_ITS | Clinical Summary ---
Author Organization [employer] Address [address] [place] [address] Care Team Providers Care Client Account Representative Name Role Phone Supa Miguel Primary Care Provider Allergies Active Allergy Reactions Criticality Noted Date [...] pain or fever. 30 tablet 024 Active lidocaine-priloca ine (Emla) 2.5-2.5 % cream [...] TWICE DAILY NEEDED 40 tablet 025 Active FLUoxetine (PROzac) 20 MG capsule TAKE 1 CAPSULE BY MOUTH EVERY DAY IN THE MORNING 90 capsule 1 025 Active omeprazole (PriLOSEC) [address] capsuleIndication s:Heartburn TAKE 1 CAPSULE BY MOUTH 30 MINUTES BEFORE entyvio infusion FOR HEARTBURN. DO NOT BREAK, CRUSH, DISSOLVE OR CHEW 45 capsule 1 09/19/2 025 Active traZODone (Desyrel) 100 MG tabletIndications :Insomnia, unspecified type TAKE 1 TABLET BY MOUTH EVERY DAY AT BEDTIME 30 tablet 5 025 Active lidocaine (Lidoderm) 5 % patch Apply 1 patch topically Once per day. Remove & discard patch within 12 hours or as directed by . 30 patch 2 024 2024 traZODone (Desyrel) 100 MG tabletIndications :Insomnia, unspecified type TAKE 1 TABLET BY MOUTH EVERY DAY AT BEDTIME 90 tablet 1 025 2024 Discontinued Active Problems Problem Noted Date Diagnosed Date Dental calculus 11/23/2024 Dental plaque 11/23/2024 Periodontal disease 11/23/2024 Missing teeth, acquired 11/23/2024 Elevated hemoglobin A1c 12/19/2022 Overview (12/19/2022): 6.1% on 10/2022 labs Erosive (osteo)arthritis 12/19/2022 History of repair of hiatal hernia 12/19/2022 Crohn's disease without complication ([facility]) 0 10/18/2022 Overview (12/19/2022): Follows w/ Dr. Ruiz Monthly Entyvio infusions EGD and colonoscopy 07/2022 Degeneration of cervical intervertebral disc 05/2022 Insomnia 09/02/2022 Rosacea 07/23/2018 Idiopathic osteoarthritis 01/29/2018 Acquired leg length discrepancy 05/02/2017 Mood disorder 05/02/2017 Encounters Date Type Department Care Team Description 02/27/2025 Refill [facility] PEDS [address] [place] [address] Supa Miguel ANP Insomnia, unspecified type 01/21/2025 Refill [facility] MEDICINE [address] [place], [place] [phone] Supa Miguel ANP Heartburn 01/18/2025 10:00 AM EDT Office Visit [facility] [address] [place], [place] [phone] Cirilo Mercedes MD Influenza-like symptoms (Primary Dx) 01/18/2025 Travel from Last 3 Months Immunizations Immunization Administration [...] is your housing situation today? I have lizsalty herrera 01/13/[address] you [...] Description 05/31/2025 10:00 AM EST Office Visit [facility] OPTOMETRY [address] [place], [place] [phone] Nerissa Graves, OD [address] [place] [address] Health Maintenance Due Date Last Done Comments CT Colonography 1965 FIT DNA/Cologuard 1965 FIT 1965 FOBT 1965 Sigmoidoscopy 1965 Disability Screening 1965 Alcohol/Substance Use Screening 1975 Mammogram 12/25/2024 12/26/2023, 11/03, 11/29/2022, Additional history exists COVID-19 Vaccine ( season) 2025 04/04/2023, 05/28/2022, 02/28/2021, Additional history exists Influenza Vaccine (#1) 2025 , 02/18/2022, 02/28/2021, Additional history exists Depression Screening 01/12/2025 01/13/2024, 01/13/20 24 SDOH Screening 01/12/2025 01/13/2024 Cervical Cancer Screening 03/24/2025 HPV/Cotest 03/24/2025 10/30/2022, 10/30/2022 Pap Smear 03/24/2025 03/24/2024, 10/30/2022 Dental Oral Exam 05/27/2025 11/23/2024, , 02/14/2022, Additional history exists Dental Prophylaxis 05/27/2025 11/23/2024, 1 05/18/2023, 07/24/2023, Additional history exists Dental X-Ray: Bitewings 11/24/2025 11/24/19 25, 07/24/2023, 02/14/2022, Additional history exists Tobacco Screening 01/18/2026 01/18/2025 Dental X-Ray: Full Mouth 10/06/2026 10/05/2020, 01/2017 DTaP/Tdap/Td Vaccines (2 - Td or [...] Routine 01/18/2025 11:14 AM EDT Influenza-like symptoms PROPHYLAXIS - ADULT Routine 11/23/2024 8 :00 AM EDT Dental calculus Dental plaque Periodontal disease BITEWINGS - 4 RADIOGRAPHIC IMAGES Routine 11/23/2024 8:00 AM EDT Dental calculus Dental plaque Periodontal disease Missing teeth, acquired PERIODIC ORAL EVALUATION - ESTABLISHED PATIENT Routine 11/23/2024 8:00 AM EDT PAP SMEAR Routine 03/24/2024 9:51 AM EST [...] AM EDT) Influenza B Negative Negative, Indeterminate [facility] Swab 01/18/2025 11:1 4 AM EDT us Cirilo Mercedes MD POINT OF CARE TEST ENTER/EDIT OR DERABLES Final Result Performing Organization Address [facility] Co de Phone Number [facility] [address] [place] [phone] * Influenza A (ID NOW Rapid Molecular) (01/18/2025 11:14 AM EDT) Influenza A Negative Negative, Indeterminate [facility] Swab 01/18/2025 11:1 4 AM EDT us Cirilo Mercedes MD POINT OF CARE TEST ENTER/EDIT OR DERABLES Final Result Performing Organization Address [facility] Co de Phone Number [facility] [address] [place] [phone] * POCT Rapid COVID Ag (01/18/2025 11:14 AM EDT) Rapid COVID Ag Negative [facility] Swab 01/18/2025 11:1 4 AM EDT us Cirilo Mercedes MD POINT OF CARE TEST ENTER/EDIT OR DERABLES Final Result Performing Organization Address [facility] Co de Phone Number [facility] [address] [place] [phone] * POCT rapid strep A manually resulted (01/18/2025 11:14 AM EDT) Rapid Strep A Screen Negative Negative, None Detected [facility] Swab 01/18/2025 11:1 4 AM EDT Cirilo Mercedes MD POINT OF CARE TEST ENTER/EDIT OR DERABLES Final Result [facility] [address] [place] [phone] * Pap Smear (03/24/2024 9:51 AM EST) 03/24/2024 9:51 AM EST 03/25/2024 8:50 AM EST Narrative [facility] - 04/02/2024 12:09 PM EST ----- ------- Name: Emma Rivera Age/Sex: 58/F : 1965 Unit#: [id number] Attend Dr: Robert Lind MD Re03/24/24 Status: DEP REF Location: HO.LNP Disch: ----- ------- SPEC : [id number] RECD: 03/25/24 STATUS: KEYSHA SUMNER NUM: [id number] BONIFACIO: 03/24/[address]: Robert Lind MD [...] Received ThinPrep-Cervical Copies To: SUPA MIGUEL NP [facility] [address] [place] [address] Robert Lind MD [facility] [address] [place] [address] ----- ------- Signed (signature on file) Gabino Martinez MD 04/02/24 5730 ----- ------- END OF REPORT us Generic External Data Provider LAB CYTOLOGY TALAT LERMA Final Result [facility] [address] [place] [phone] * BI Mammogram Screening Tomosynthesis Bilateral (12/26/2023 10:30 AM EDT) Anatomical Region Laterality Modality Breast Bilateral Mammography 12/26/2023 10:3 0 AM EDT Narrative 01/22/2024 10:25 PM EDT [address] [place] [address] Mammography Report Signed Patient: Emma Rivera MR#: [id number] 1 : 1965 Acct:[id number] Age/Sex: 58 / F ADM Date: 12/26/23 Loc: HO.MAMMO Attending Dr: Supa Miguel NP Ordering Physician: SUPA MIGUEL NP Results: 1Negative Date of Service: 12/26/23 Follow Up: 1 Year From Orig inal Mammogram Procedure(s): MM tomosynthesis screening BI Accession Number(s): [id number] cc: SUPA MIGUEL NP EXAMINATION: MM SCREENING [...] signed by Elda Butler MD in OV> 01/22/242 DD/ 1030 TD/TT: 12/26/23 1048 Copier Operator: Procedure Note Donotuseinterpreter, Image - 01/22/[address] [place] [address] Mammography Report Signed Patient: Michelle RiveraR#: [id number] 1 : 1965Acct:[id number] Age/Sex: 58 / FADM Date: 12/26/23 Loc: HO.MAMMO Attending Dr: Supa Miguel NP Ordering Physician: SUPA MIGUEL NPResults: 1Negative Date of Service: 12/26/23Follow Up: 1 Year From Orig inal Mammogram Procedure(s): MM tomosynthesis screening BI Accession Number(s): [id number] cc: SUPA MIGUEL NP EXAMINATION: MM SCREENING [...] 01/22/24 2222 DD/ 1030 TD/TT: 12/26/23 1048 Copier Operator: Supa [facility]AC[facility]OS [facility] BI PROCEDURES Final Result * HPV Genotypes 16,18/45 (10/30/2022 10:41 AM EDT) HPV 16 RNA NOT DETECTED NOT DETECTED [facility] HPV 18/45 RNA NOT DETECTED NOT DETECTED [employer] [place] [employer] Comment: Methodology: [employer] Caser Mediated Amplification Cervical sources are required for HPV testing. If a vaginal source from a patient who has had a total hysterectomy with removal of cervix was submitted, please contact the testing laboratory for alternative testing options. 10/30/2022 10:4 1 AM EDT 10/31/2022 1:23 AM EDT Result [facility] Nataly Dior [facility] LAB CYTOLOGY ORDERABLES F inal Result Performing Organization Address [facility] Co de Phone Number [facility] [address], [facility] [place] [address] [employer] [place] [employer] [address] [place] [phone] * Hepatitis C Antibody with Reflex to HCV, RNA, Quantitative, Real-Time PCR (10/22/2022 11:38 AM EDT) Hepatitis C Antibody NON-REACT GARRISON NON-REACT GARRISON [employer] [place] [employer] Comment: HCV antibody was non-reactive. There is no laboratory evidence of HCV infection. In most cases, no further action is required. However, if recent HCV exposure is suspected, a test for HCV RNA (test code 93569) is suggested. For additional information please refer to http://education.MobPanel/faq/OMG68w2 (This link is being provided for informational/ educational purposes only.) Blood Venous blood specimen / Unknown 10/22/2022 11:38 AM EDT 10/22/2022 11:39 AM EDT Narrative [facility] - 10/26/2022 12:15 AM EDT FASTING:YES FASTING: YES Result [facility] Supa PALACIOS LAB BLOOD ORDERABLES Final Resul t Performing Organization Address City/[facility]/ZIP Co de Phone Number [address] [place] [address] [employer] [place] [employer] [address] [place] [phone] * HIV-1/2 Antigen and Antibodies, Fourth Generation, with Reflexes (10/22/2022 11:38 AM EDT) HIV Antigen/Antibody, 4th Generation NON-REAC TIVE NON-REAC TIVE [employer] [place] [facility] Comment: HIV-1 antigen and HIV-1/HIV-2 antibodies [...] purpose. For additional information please refer to http://education.MobPanel/faq/VAJ609 (This link is being provided for informational/ educational purposes only.) The performance of this assay has not been clinically validated in patients less than 2 years old. Blood Venous blood specimen / Unknown 10/22/2022 11:38 AM EDT 10/22/2022 11:39 AM EDT Narrative [facility] - 10/26/2022 12:15 AM EDT FASTING:YES FASTING: YES us Supa PALACIOS LAB BLOOD ORDERABLES Final Resul t [facility] [address], [place] [address] [employer] [place] [employer] [address] [place] [address] * Hm Colonoscopy (10/16/2022 11:44 AM EDT) Colonoscopy Normal Normal Germaine Ruiz MD HEALTH MAINTENANCE Final Result from Last 3 Months or Most Recently Relevant to Health Maintenance Insurance [employer] PPO DENTAL - [employer] DENTAL PPO [place] Care Teams Client Account Representative Relationship Specialty Start Date End Date Supa Miguel ANP [address] [place] [phone] PCP - General Family Medicine 05/31/22
--- OUTSIDE RECORDS SUMMARY | 2025-03-04 14:37 | XMS_ITS | Encounter Summary ---
Author Organization [employer] Address [address] [facility] [address] [place] [address] Care Team Providers Care Joint Terminal Attack Controller Name Role Phone Cha Morgan Primary Care Provider [phone] Encounter Details Date Type Department Care Team ([facility] st Contact Info) Description 03/19/2024 Orders Only [facility] MEDICINE [address] [place], [place] [phone] Cha Morgan ANP [address] [place] [address] Social History Tobacco Use Types Packs/Day Years [...] Description 05/31/2025 10:00 AM EST Office Visit [facility] OPTOMETRY [address] [place] [address] Nerissa Graves, OD [address] [place] [address] documented as of this encounter Visit Diagnoses Not on filedocumented in this encounter Additional Health Concerns Assessment Noted Time PHQ-9 Depression Total Score: 0 01/13/20 24 10:34 AM EDT documented as of this encounter Care Teams Joint Terminal Attack Controller Relationship Specialty Start Date End Date Cha Morgan ANP [address] [place] [phone] PCP - General Family Medicine 05/31/22 documented as of this encounter
== END 2025-03-04 13:41 | disposition home or self-care (01) ==
LOC: HO.MAMMO 13:40
PROVIDERS: PCP Nurse Practitioner Primary Care; Visit Provider Nurse Practitioner Primary Care
DX: Z12.31 Encounter for screening mammogram for malignant neoplasm of breast (principal)
CPT/HCPCS: 77063; 77067

== ENCOUNTER → 2025-03-04 13:45 | Outpatient (BNV) | payer OTHER, SELFPAY | PROVIDERS: PCP Nurse Practitioner Primary Care; Visit Provider Internal Medicine | DX: Z12.31 Encounter for screening mammogram for malignant neoplasm of breast (principal) | CPT/HCPCS: 77063; 77067 ==

== ENCOUNTER 2025-04-13 10:35 | Outpatient (REF) | payer OTHER, SELFPAY | END 2025-04-13 10:36 | disposition home or self-care (01) | LOC: HO.LNP 10:35 | PROVIDERS: PCP Nurse Practitioner Primary Care; Visit Provider Obstetrics & Gynecology | DX: Z01.419 Encounter for gynecological examination (general) (routine) without abnormal findings (principal) | CPT/HCPCS: 87626; 88175 ==

== ENCOUNTER 2025-04-13 10:35 | Outpatient (AMB) | payer OTHER, SELFPAY ==
--- NOTE | 2025-04-13 10:46 | A.OFFVIS_ITS ---
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 No complaints. Last Pap/HPV was done in 03/29 showed ASCUS HPV negative, colpo biopsy ECC was negative Last Mammogram was BI-RADS 1 in 02/26 Last Colonoscopy was done in 01/24, the recommendation was to repeat in 10 years [facility] Medical History (Updated 04/13/25 @ 11:03 by Robert Lind MD) ASCUS with positive high risk HPV cervical Crohn's disease GERD (gastroesophageal reflux disease) Surgical History Hx of gastric bypass Hx of colonoscopy History of esophagogastroduodenoscopy (EGD) Family History Mother Diabetes Breast cancer Brother Diabetes Brother Diabetes Father Colon cancer Social History (Updated 04/13/25 @ 10:52 by Codie Marin CMA) Household Members Other:: son Housing: House Alcohol intake: never Patient Tobacco Use Status: Never used Tobacco Second Hand Smoke Exposure: No Use of substances other than those prescribed or required for medical reasons: No Current occupational status: employed 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 Sexually active: No Sexual orientation: Straight/Heterosexual Gender identity: Female Female Reproductive History Menstrual Age of Menarche: 11 Menopause type: natural Total pregnancies: 1 Full term: 1 Number of Living Children: 1 Date of last pap smear: 03/25/24 Date of Mammogram: 03/04/25 Review of Systems Const All systems reviewed & are unremarkable except as noted in HPI and below Card Reports as per HPI Resp Reports as per HPI GI Reports as per HPI and Reports no additional complaints Reports as per HPI Physical Exam Vital Signs: Last Vital Signs BP 116/72 04/13/25 10:48 BMI result Body Mass Index 28.3 Const General: cooperative, healthy appearing and comfortable Chest Chest palpation & inspection: normal inspection of the chest and normal palpation of entire chest wall Breast/axilla inspection: normal inspection of the breasts and normal inspection of the axillae Breast/axilla palpation: normal palpation of the breasts, normal palpation of the axillae and no axillary lymphadenopathy Resp Effort & Inspection: normal respiratory effort Auscultation: clear to auscultation bilaterally Percussion: percussion normal Cardio Palpation: normal PMI Rate: regular rate Rhythm: regular rhythm Heart sounds: no murmurs and no rubs Peripheral pulses: Peripheral pulses 2+ throughout GI Inspection: Yes normal to inspection Palpation (GI): Soft to palpation, nontender, no guarding, not rigid and No hepatosplenomegaly present Percussion: Yes normal to percussion Auscultation: normal bowel sounds Rectal Exam - Female: deferred General: Yes bladder normal to palpation External Female Exam: No lesion Speculum Exam - Vagina: normal appearance of the vagina, normal palpation, normal vaginal discharge and not erythematous Speculum Exam - Cervix: normal appearance of the cervix and normal palpation Bimanual exam- vagina & uterus: normal bimanual exam, normal palpation, uterine size normal, bladder normal to palpation, consistency normal and normal palpation Bimanual Exam- Adnexa, other: normal adnexae, no masses and no tenderness Assessment & Plan Assessment & Plan (1) Well woman exam: Code(s): Z01.419 - Encounter for gynecological examination (general) (routine) without abnormal findings Category: Medical Plan: Co testing done. Counseled the patient about the recommended dietary allowance of 1200 mg of Calcium & 600 IU of vitamin D. Instructions given the patient to schedule next screening Mammogram in 02/27 The patient was instructed to perform monthly self-breast exams and schedule annual exam in a year. All questions answered and the patient verbalized understanding. Coding Level of Care Code Est Pt Prev Care 40-64y(43415) Diagnoses Well woman exam Z01.419
[2025-04-13 10:48] VITALS: BP 116/72; BMI 28.3
== END 2025-04-13 11:32 | disposition home or self-care (01) ==
LOC: HO.HWS 10:36
PROVIDERS: PCP Nurse Practitioner Primary Care; Visit Provider Obstetrics & Gynecology
DX: Z01.419 Encounter for gynecological examination (general) (routine) without abnormal findings (principal)
CPT/HCPCS: 99396; 99459